=== PATIENT | female | born 1940 | race Caucasian/White ===

== ENCOUNTER 2017-03-16 14:53 | Inpatient (IN) | payer OTHER, MEDICARE ==
--- NOTE | 2017-03-16 16:11 | DR.GENAD ---
HPI - PCP Primary Care Physician: josephine - HPI Comment HPI Comment: BP LOW IN ED. PATIENT DIZZY AND WEAL. NO HEADACHE OR HEAD TRAUMA. NO FEVER. - Complaint/Symptoms Chief Complaint Doctors Comments: WEAKNESS, ALMOST PASS OUT, BP LOW AT HOME. Chief Complaint:: patients stated her blood pressure was low at home and she stated she cant breath good and a sore throat. - Nurses notes reviewed Nurses Notes Review: Yes - Source History Provided: Patient - Mode of Arrival Mode of Arrival: Ambulatory - Timing Onset of Chief Complaint: 03/13/17 Came on: Suddenly - Duration Duration: Constant Duration: Days - Severity Severity: Moderate PMH - PMH Past Medical History: Yes Past Surgical History: Yes - Family History History of Family Medical Conditions: No - Social History Does patient currently use any type of tobacco product: No Have you used tobacco products in the last 12 months: No Type of Tobacco Use: None Does any household member use tobacco: No Alcohol Use: None Do you use any recreational Drugs:: No Lives With: Family Lives Where: Home - infectious screening In the last 2 months have you had wt loss of >10#?: NO Have you had fever, night sweats or hemotysis?: No Have you traveled outside the country in the last 6 months?: No Isolation: Standard ROS - Review of Systems Constitutional: Weakness, Fatigue. negative: Chills, Diaphoresis, Fever, Loss of Appetite Eyes: No Symptoms Reported. negative: Eye Pain, Discharge ENTM: No Symptoms Reported. negative: Ear Pain, Nose Discharge, Nose Congestion , Throat Pain Respiratoy: Non-Productive Cough, Short of Breath. negative: Productive Cough, Wheezing, Hemoptysis Cardiovascular: Chest Pain, Syncope (NEAR SYNCOPE) Genitourinary: No Symptoms Reported. negative: Dysuria, Hematuria Neurological: Weakness, Dizziness. negative: Headache Musculoskeletal: Muscle Pain Integumentary: Dryness Hematologic/Lymphatic: Easy Bruising Endocrine: No Symptoms Reported All Other Systems: Reviewed and Negative PE - Vital Signs Vitals: Temperature 98.7 F Pulse Rate [Left Brachial] 93 Pulse Rate [Right Brachial] 79 Pulse Rate 110 Respiratory Rate 22 Blood Pressure [Left Arm] 134/65 Blood Pressure [Right Arm] 110/57 Blood Pressure 162/69 O2 Sat by Pulse Oximetry 98 - General Limitations: No Limitations General Appearance: Alert - Head Head Exam: Normal Inspection - Eyes Eye exam: Normal Appearance - ENT ENT Exam: Normal External Ear Exam External Ear Exam: Normal External Inspection TM/Canal Exam: Bilateral Normal Nose Exam: Normal Nose Exam Mouth Exam: Normal Inspection Throat Exam: Normal Inspection - Neck Neck Exam: Normal Inspection - Chest Chest Inspection: Symmetric Chest Wall Rise - Respiratory Respiratory Exam: Normal Lung Sounds Bilat Respiratory Exam: Bilateral Clear to Auscultation - Cardiovascular Cardiovascular Exam: Regular Rate, Normal Rhythm, Normal Heart Sounds - Abdominal Exam Abdominal Exam: Normal Bowel Sounds, Soft. negative: Tenderness - Extremities Extremities Exam: Normal Inspection - Back Back Exam: Normal Inspection - Neurologic Neurological Exam: Alert - Psychiatric Psychiatric Exam: Normal Affect, Normal Mood - Skin Skin Exam: Normal Color MDM - Additional Information Additional Information Obtained From: Old Records (HYPOTENSION, DEHYDRATION, UTI , PNEUMONIA, SOB, WEAKNESS) Course - Treatment Treatment: SEE ORDERS. - Consultation Consultation Comments: DISCUSS PATIENT WITH DR. PEDROZA. HE WILL ADMIT PATIENT. - Education/Counseling Education/Counseling: Patient, Education Educated On: Diagnosis ROR - Labs Reviewed Laboratory Results Reviewed?: Yes Result Diagrams: 03/17/17 05:15 03/17/17 05:15 Laboratory: WBC 11.3 X10^3/uL (3.6-10.0) H 03/16/17 16:25 RBC 3.19 X10^6/uL (3.5-5.4) L 03/16/17 16:25 Hgb 9.1 g/dL (12.0-16.0) L 03/16/17 16:25 Hct 27.5 % (36.0-47.0) L 03/16/17 16:25 MCV 86.4 fL (80.0-100.0) 03/16/17 16:25 MCH 28.7 pg (27.0-34.0) 03/16/17 16:25 MCHC 33.2 g/dL (33.0-35.0) 03/16/17 16:25 RDW 15.0 % (11.6-16.5) 03/16/17 16:25 Plt Count 165 X10^3/uL (150.0-450.0) 03/16/17 16:25 MPV 8.1 fL (7.4-11.0) 03/16/17 16:25 Neut % 84.2 % (42.0-75.0) H 03/16/17 16:25 Lymph % 8.1 % (21.0-51.0) L 03/16/17 16:25 [place] % 7.3 % (0.0-13.0) 03/16/17 16:25 Eos % 0.0 % (0.9-2.9) L 03/16/17 16:25 Baso % 0.4 % (0.2-1.0) 03/16/17 16:25 Neut # 9.5 x10^3/uL (2.2-4.8) H 03/16/17 16:25 Lymph # 0.9 X10^3/uL (1.3-2.9) L 03/16/17 16:25 [place] # 0.8 x10^3/uL (0.3-0.8) 03/16/17 16:25 Eos # 0.0 x10^3/uL (0.0-0.2) 03/16/17 16:25 Baso # 0.0 X10^3/uL (0.0-0.1) 03/16/17 16:25 Absolute Nucleated RBC 0.0 /100WBC 03/16/17 16:25 D-Dimer 1710 ng/mL (0-400) H* 03/16/17 16:12 Sodium 137 mmol/L (136-145) 03/16/17 16:25 Corrected Sodium 139 mmol/L (136-145) 03/16/17 16:25 Potassium 3.3 mmol/L (3.5-5.1) L 03/16/17 16:25 Chloride 103 mmol/L (98-107) 03/16/17 16:25 Carbon Dioxide 22.2 mmol/L (21-32) 03/16/17 16:25 BUN 51 mg/dL (7-18) H 03/16/17 16:25 Creatinine 2.96 mg/dL (0.55-1.02) H 03/16/17 16:25 Est GFR (MDRD) Af Amer 20 (>60) L 03/16/17 16:25 Est GFR (MDRD) Non-Af 16 (>60) L 03/16/17 16:25 Glucose 179 mg/dL (65-99) H 03/16/17 16:25 Calcium 8.1 mg/dL (8.5-10.1) L 03/16/17 16:25 Corrected Calcium 8.7 mg/dL (8.5-10.1) 03/16/17 16:25 Total Bilirubin 0.40 mg/dL (0.2-1.0) 03/16/17 16:25 AST 41 Units/L (15-37) H 03/16/17 16:25 ALT 55 Units/L (12-78) 03/16/17 16:25 Alkaline Phosphatase 50 Units/L (46-116) 03/16/17 16:25 Creatine Kinase 124 Units/L (26-192) 03/16/17 16:25 CK-MB (CK-2) < 1.0 ng/mL (0-4.0) 03/16/17 16:25 CK/CKMB % Calc 0.8 % (<4) 03/16/17 16:25 Troponin I < 0.02 ng/mL (0-1.5) 03/16/17 16:25 B-Natriuretic Peptide 184 pg/mL (0-79) H 03/16/17 16:25 Total Protein 6.7 g/dL (6.4-8.2) 03/16/17 16:25 Albumin 3.2 g/dL (3.4-5.0) L 03/16/17 16:25 Globulin 3.5 g/dL (2.5-4.5) 03/16/17 16:25 Albumin/Globulin Ratio 0.9 Ratio (1.1-2.1) L 03/16/17 16:25 Specimen Type Clean catch urine 03/16/17 17:34 Urine Color Yellow (YELLOW) 03/16/17 17:34 Urine Appearance Hazy (CLEAR) 03/16/17 17:34 Urine pH 5.0 (5.0 - 8.0) 03/16/17 17:34 Ur Specific [place] 1.025 (1.000-1.030) 03/16/17 17:34 Urine Protein 3+ (NEGATIVE) 03/16/17 17:34 Urine Glucose (UA) Negative (NEGATIVE) 03/16/17 17:34 Urine Ketones 1+ (NEGATIVE) 03/16/17 17:34 Urine Occult Blood 2+ (NEGATIVE) 03/16/17 17:34 Urine Nitrite Negative (NEGATIVE) 03/16/17 17:34 Urine Bilirubin 1+ (NEGATIVE) 03/16/17 17:34 Urine Urobilinogen 1+ (NORMAL) 03/16/17 17:34 Ur Leukocyte Esterase 3+ (NEGATIVE) 03/16/17 17:34 Urinalysis Comment QNS 03/16/17 17:34 Stool Description Ifob collection tube 03/16/17 17:40 Stl Occult Blood (IFOB) Negative (NEGATIVE) 03/16/17 17:40 - XRAY XRAY Interpreted by: Radiologist XRAY Findings: REPORT DISCUSS WITH PATIENT. - EKG Rhythm: NSR (EKG NOTED) - Diagnosis Discharge Problem: Generalized weakness, Dehydration, SOB (shortness of breath) Hypotension Qualifiers: Hypotension type: unspecified hypotension type Qualified Code(s): I95.9 - Hypotension, unspecified UTI (urinary tract infection) Qualifiers: Urinary tract infection type: acute cystitis Hematuria presence: without hematuria Qualified Code(s): N30.00 - Acute cystitis without hematuria - Discharge Plan Disposition: ADMITTED INPATIENT Condition: Stable - Follow ups/Referrals - Instructions
[2017-03-16 16:34] LABS: BASOPHILS % (AUTO) 0.4 % (0.2-1.0); HEMATOCRIT 27.5 % (36.0-47.0); HEMOGLOBIN 9.1 g/dL (12.0-16.0); LYMPHOCYTES # (AUTO) 0.9 X10^3/uL (1.3-2.9); LYMPHOCYTES % (AUTO) 8.1 % (21.0-51.0); MEAN CORPUSCULAR HEMOGLOBIN 28.7 pg (27.0-34.0); MEAN CORPUSCULAR HGB CONC 33.2 g/dL (33.0-35.0); MEAN CORPUSCULAR VOLUME 86.4 fL (80.0-100.0); MEAN PLATELET VOLUME 8.1 fL (7.4-11.0); MONOCYTES # (AUTO) 0.8 x10^3/uL (0.3-0.8); MONOCYTES % (AUTO) 7.3 % (0.0-13.0); NEUTROPHILS # (AUTO) 9.5 x10^3/uL (2.2-4.8); NEUTROPHILS % (AUTO) 84.2 % (42.0-75.0); PLATELET COUNT 165 X10^3/uL (150.0-450.0); RED BLOOD COUNT 3.19 X10^6/uL (3.5-5.4); WHITE BLOOD COUNT 11.3 X10^3/uL (3.6-10.0)
--- NOTE | 2017-03-16 16:44 | RAD ---
HISTORY: Headache Study: Chest one view Comparison: August 24, 2015 Findings: The trachea is midline. The cardiac silhouette is upper limits normal in size. No congestive heart failure is noted.. The lungs are clear without focal infiltrate or effusion. The bony thorax is un remarkable. IMPRESSION: 1. No acute cardiopulmonary disease. Reported By:
--- NOTE | 2017-03-16 16:44 | CT ---
HISTORY: Headache Study: CT brain without contrast Comparison: September 04, 2016 Technique: Multiple axial images of the brain were obtained from the skull base to the vertex without administr ation of IV contrast. Findings: No acute intraparenchymal hemorrhage or mass can be identified. No extra-axial fluid collections ar e seen. No alteration in the attenuation of the brain parenchyma can be identified to suggest acute or subacute ischemic change. The ventricular system is symmetric and nondilated. The extracranial structures are grossly unremarkable. IMPRESSION: 1. No acute intracranial process can be identified. Reported By:
[2017-03-16 17:15] LABS: B-TYPE NATRIURETIC PEPTIDE 184 pg/mL (0-79)
[2017-03-16 17:16] LABS: ALANINE AMINOTRANSFERASE 55 Units/L (12-78); ALBUMIN 3.2 g/dL (3.4-5.0); ALKALINE PHOSPHATASE 50 Units/L (46-116); ASPARTATE AMINO TRANSFERASE 41 Units/L (15-37); CARBON DIOXIDE 22.2 mmol/L (21-32); CHLORIDE 103 mmol/L (98-107); COR CA(FOR HYPOALB) 8.7 mg/dL (8.5-10.1); COR NA(FOR HYPERGLY) 139 mmol/L (136-145); CREATINE KINASE 124 Units/L (26-192); CREATINE KINASE MB < 1.0 ng/mL (0-4.0); SODIUM 137 mmol/L (136-145); TOTAL PROTEIN 6.7 g/dL (6.4-8.2); TROPONIN I < 0.02 ng/mL (0-1.5)
[2017-03-16 17:19] LABS: BLOOD UREA NITROGEN 51 mg/dL (7-18); CREATININE 2.96 mg/dL (0.55-1.02); GLUCOSE 179 mg/dL (65-99)
[2017-03-16 17:20] LABS: CALCIUM 8.1 mg/dL (8.5-10.1)
[2017-03-16 17:22] LABS: CKMB % 0.8 % (<4); eGFR BLACK RACES 20 (>60); eGFR NON BLACK RACES 16 (>60)
[2017-03-16 17:44] LABS: BILIRUBIN,URINE 1+ (NEGATIVE); BLOOD/HEMOGLOBIN,URINE 2+ (NEGATIVE); GLUCOSE, URINE NEGATIVE (NEGATIVE); KETONES,URINE 1+ (NEGATIVE); LEUKOCYTE ESTERASE ,URINE 3+ (NEGATIVE); NITRITES,URINE NEGATIVE (NEGATIVE); PROTEIN,URINE 3+ (NEGATIVE); UROBILINOGEN,URINE 1+ (NORMAL)
[2017-03-16 17:47] LABS: APPEARANCE,URINE HAZY (CLEAR); COLOR,URINE YELLOW (YELLOW)
[2017-03-16] MEDS ORDERED: NS 1000 ML 1,000 ML ONE (18:23)
[2017-03-16] MEDS ORDERED: NS 1000 ML 1,000 ML IV ONE (18:31)
[2017-03-16] MEDS ORDERED: MORPHINE SULFATE INJ 4 MG IVP ONE (18:34)
[2017-03-16] MEDS ORDERED: DUONEB 0.5 MG/3 MG NEB ONE (20:05)
[2017-03-16] MEDS ORDERED: DUONEB 0.5 MG/3 MG ONE (20:05)
[2017-03-16] MEDS ORDERED: LOVENOX INJ 100 MG SYR SC ONE (21:46)
[2017-03-16] MEDS ORDERED: TYLENOL 500 MG TAB EXTRA STRENGTH PO ONE (21:54)
[2017-03-16] MEDS ORDERED: TYLENOL 500 MG TAB EXTRA STRENGTH ONE (21:55)
[2017-03-16] MEDS ORDERED: LOVENOX INJ 100 MG SYR SC SCH ×2 (22:00)
[2017-03-16] MEDS: ROCEPHIN VIAL 1 GM 1 GM in NS 50 ML IV + SPIKE MINIBAG* 50 ML IV SCH (22:49)
[2017-03-16] MEDS: NEURONTIN CAP 300 MG PO SCH (22:49)
[2017-03-16] MEDS ORDERED: NS + KCL 20 MEQ/L 1,000 ML IV SCH (23:00)
[2017-03-16 23:04] LABS: BILIRUBIN,URINE NEGATIVE (NEGATIVE); BLOOD/HEMOGLOBIN,URINE 3+ (NEGATIVE); GLUCOSE, URINE NEGATIVE (NEGATIVE); KETONES,URINE NEGATIVE (NEGATIVE); LEUKOCYTE ESTERASE ,URINE 2+ (NEGATIVE); NITRITES,URINE NEGATIVE (NEGATIVE); PROTEIN,URINE 2+ (NEGATIVE); UROBILINOGEN,URINE NORMAL (NORMAL)
[2017-03-16 23:18] LABS: APPEARANCE,URINE CLOUDY (CLEAR); BACTERIA,URINE 2+ /HPF (NEGATIVE); COLOR,URINE YELLOW (YELLOW); HYALINE CASTS, URINE FEW /LPF (NEGATIVE); SQUAMOUS EPITHELIAL CELL,UR RARE /HPF (NEGATIVE)
[2017-03-16 23:21] LABS: CKMB % 0.7 % (<4); CREATINE KINASE MB 1.1 ng/mL (0-4.0); TROPONIN I 0.03 ng/mL (0-1.5)
[2017-03-17 00:07] LABS: ABG BASE EXCESS -3.5 mmol/L (-2.0-2.0); ABG HCO3 20.3 mmol/L (22-26)
[2017-03-17 00:08] LABS: ABG ALLEN TEST POS
[2017-03-17] MEDS: DUONEB 0.5 MG/3 MG NEB SCH ×2 (00:32→06:07)
[2017-03-17] MEDS: NEURONTIN CAP 300 MG PO SCH ×3 (05:47→21:09)
[2017-03-17 05:50] LABS: BASOPHILS # (AUTO) 0.1 X10^3/uL (0.0-0.1); BASOPHILS % (AUTO) 0.5 % (0.2-1.0); EOSINOPHILS % (AUTO) 0.1 % (0.9-2.9); HEMATOCRIT 26.4 % (36.0-47.0); HEMOGLOBIN 8.9 g/dL (12.0-16.0); LYMPHOCYTES # (AUTO) 0.8 X10^3/uL (1.3-2.9); LYMPHOCYTES % (AUTO) 8.2 % (21.0-51.0); MEAN CORPUSCULAR HEMOGLOBIN 29.3 pg (27.0-34.0); MEAN CORPUSCULAR HGB CONC 33.9 g/dL (33.0-35.0); MEAN CORPUSCULAR VOLUME 86.5 fL (80.0-100.0); MEAN PLATELET VOLUME 8.7 fL (7.4-11.0); MONOCYTES # (AUTO) 0.7 x10^3/uL (0.3-0.8); MONOCYTES % (AUTO) 6.8 % (0.0-13.0); NEUTROPHILS # (AUTO) 8.3 x10^3/uL (2.2-4.8); NEUTROPHILS % (AUTO) 84.4 % (42.0-75.0); PLATELET COUNT 140 X10^3/uL (150.0-450.0); RED BLOOD COUNT 3.05 X10^6/uL (3.5-5.4); WHITE BLOOD COUNT 9.8 X10^3/uL (3.6-10.0)
[2017-03-17 05:57] LABS: ALBUMIN 2.6 g/dL (3.4-5.0); CALCIUM 7.6 mg/dL (8.5-10.1); CARBON DIOXIDE 21.3 mmol/L (21-32); CKMB % 1.3 % (<4); COR CA(FOR HYPOALB) 8.7 mg/dL (8.5-10.1); CREATINE KINASE MB 3.4 ng/mL (0-4.0); CREATININE 3.19 mg/dL (0.55-1.02); TROPONIN I 0.05 ng/mL (0-1.5)
[2017-03-17] MEDS ORDERED: ZOLOFT PO SCH (09:00)
[2017-03-17] MEDS ORDERED: MULTIPLE VITAMINS PO SCH (09:00)
[2017-03-17] MEDS ORDERED: VALIUM PO SCH (09:00)
[2017-03-17] MEDS ORDERED: PATIENT'S HOME MEDICATION (Fenofibrate [Fenofibrate] 1 TAB) PO SCH (09:00)
[2017-03-17] MEDS ORDERED: [UNRECOGNIZED DRUG - REMARK] PO SCH (09:00)
[2017-03-17] MEDS ORDERED: REQUIP PO SCH (09:00)
[2017-03-17] MEDS ORDERED: MINERALS PO SCH (09:00)
[2017-03-17] MEDS ORDERED: TAB-A-VITE PO SCH (09:00)
[2017-03-17] MEDS ORDERED: ZANTAC PO SCH (09:00)
[2017-03-17] MEDS ORDERED: PATIENT'S HOME MEDICATION (Ranitidine Hcl [Zantac] 300 MG) PO SCH (09:00)
[2017-03-17] MEDS ORDERED: ZOCOR TAB 20 MG PO SCH (09:00)
[2017-03-17] MEDS ORDERED: FLONASE NASAL SPRAY ENOSTRIL SCH (09:00)
[2017-03-17] MEDS ORDERED: PriLOSEC PO SCH (09:00)
[2017-03-17] MEDS ORDERED: ZyrTEC TAB 10 MG PO SCH (09:00)
[2017-03-17] MEDS: ROCEPHIN VIAL 1 GM 1 GM in NS 50 ML IV + SPIKE MINIBAG* 50 ML IV SCH (09:13)
[2017-03-17] MEDS ORDERED: ULTRAM PO PRN (10:55)
[2017-03-17] MEDS ORDERED: LEVAQUIN PREMIX IV 500 MG 500 MG/100 ML BAG IV SCH (11:00)
[2017-03-17] MEDS ORDERED: MELOXICAM 7.5 MG PO SCH (11:00)
[2017-03-17] MEDS ORDERED: FLOMAX PO SCH (11:00)
[2017-03-17] MEDS ORDERED: TYLENOL SUPP 650 MG PR PRN ×2 (11:38→16:44)
[2017-03-17] MEDS ORDERED: NS + KCL 20 MEQ/L 1,000 ML IV SCH (12:00)
[2017-03-17] MEDS ORDERED: XOPENEX 1.25 MG/3 ML NEBULE NEB SCH (12:00)
[2017-03-17] MEDS ORDERED: FORTAZ or TAZICEF INJ 1 GM in NS 50 ML IV + SPIKE MINIBAG* 50 ML IV SCH (14:00)
[2017-03-17] MEDS ORDERED: VANCOMYCIN 1 GM PREMIX (ADDVANTAGE) 250 ML IV SCH ×2 (15:00→21:00)
--- NOTE | 2017-03-17 15:56 | CT ---
CT OF THE ABDOMEN AND PELVIS WITHOUT CONTRAST HISTORY: Diffuse abdominal pain. Fever. Comparison: 08/15/2015 Technique: Multiple axial images of the abdomen and pelvis were obtained from the lung bases to the pubic symph ysis without the administration of IV contrast. Dose reduction techniques including Automated Expos ure Control (AEC) and adjustment of mA and kV were utlized. Findings: The heart is normal in size. There is no pericardial effusion. Lung bases are clear without focal co nsolidation, pleural effusion or pneumothorax. The sensitivity for focal lesion detection within the solid abdominal viscera is diminished without the use of IV contrast. Liver and spleen are normal in size, and contour. Hepatic steatosis without focal lesion. No ductal dilitation. Gallbladder absent. The pancreas is unremarkable. Adrenal glands are normal. Bilateral p erinephric stranding which is new from prior. No bowel obstruction or inflammation. No abnormal appearing mesenteric or retroperitoneal lymph nod es. No free fluid or fluid collections. The bladder is normal in appearance. Uterus and ovaries absent. No free fluid or abnormal pelvic lym ph nodes. No aggressive osseous lesions. IMPRESSION: 1. Bilateral perinephric stranding which is new from prior. Correlate with renal function. 2. Hepatic steatosis. Reported By:
--- NOTE | 2017-03-17 16:17 | NM ---
HISTORY: Shortness of breath with suspicion for pulmonary embolism. Nuclear medicine V/Q examination. Technique: After the administration of 6.08 mCi of technetium 99m MAA followed by inhalation of 28.7 mCi of technetium 99m DTPA, anterior, posterior, and lateral perfusion and ventilation images were submitted. The multiple V/Q projections were reviewed in concert. Comparison: Chest radiographic examination of same day. Findings: No appreciable ventilation or perfusion defect seen. No mismatched segmental or wedge-shap ed perfusion defects are seen to suggest pulmonary emboli. Based on the PIOPED 2 criteria, this stud y would correspond to a low probability exam for PE. However, it should be noted that a low probabil ity V/Q study does not imply a lack of any associated pulmonary emboli, based on the PIOPED study. I t simply implies a less than 20% likelihood of pulmonary embolism. No additional ventilation or perf usion imaging abnormalities are seen. IMPRESSION: Low probability V/Q study for pulmonary embolism. Reported By:
[2017-03-17] MEDS ORDERED: DUONEB 0.5 MG/3 MG NEB ONE (16:44)
[2017-03-17] MEDS: XOPENEX 1.25 MG/3 ML NEBULE NEB SCH (17:16)
[2017-03-17] MEDS ORDERED: VANCOMYCIN 1 GM PREMIX (ADDVANTAGE) 250 ML IV ONE (17:33)
[2017-03-17] MEDS ORDERED: TYLENOL 325 MG TAB PO ONE ×2 (17:33→17:34)
[2017-03-17] MEDS: TYLENOL 325 MG TAB PO PRN (17:37)
[2017-03-17] MEDS: ULTRAM PO PRN (18:34)
[2017-03-17 20:52] LABS: BILIRUBIN,URINE NEGATIVE (NEGATIVE); BLOOD/HEMOGLOBIN,URINE 4+ (NEGATIVE); GLUCOSE, URINE NEGATIVE (NEGATIVE); KETONES,URINE NEGATIVE (NEGATIVE); LEUKOCYTE ESTERASE ,URINE 1+ (NEGATIVE); NITRITES,URINE NEGATIVE (NEGATIVE); PROTEIN,URINE 2+ (NEGATIVE); UROBILINOGEN,URINE NORMAL (NORMAL)
[2017-03-17 21:04] LABS: AMORPHOUS SEDIMENT,UR 3+ /HPF (NEGATIVE); APPEARANCE,URINE SLIGHTLY HAZY (CLEAR); BACTERIA,URINE 1+ /HPF (NEGATIVE); COLOR,URINE YELLOW (YELLOW); SQUAMOUS EPITHELIAL CELL,UR RARE /HPF (NEGATIVE)
[2017-03-17] MEDS: NS + KCL 20 MEQ/L 1,000 ML IV SCH ×2 (21:09→23:54)
[2017-03-17] MEDS: LOVENOX INJ 100 MG SYR SC SCH (21:10)
[2017-03-17] MEDS: FLONASE NASAL SPRAY ENOSTRIL SCH (21:11)
[2017-03-18] MEDS: XOPENEX 1.25 MG/3 ML NEBULE NEB SCH ×2 (01:17→05:15)
[2017-03-18] MEDS: TUSSIONEX PENNKINETIC SUSP PO PRN ×2 (01:29→15:28)
[2017-03-18] MEDS: ROBITUSSIN DM PO PRN ×3 (01:29→17:29)
[2017-03-18] MEDS ORDERED: VANCOMYCIN 1 GM PREMIX (ADDVANTAGE) 250 ML IV SCH (03:00)
[2017-03-18] MEDS: NS + KCL 20 MEQ/L 1,000 ML IV SCH ×5 (05:22→21:00)
[2017-03-18] MEDS: NEURONTIN CAP 300 MG PO SCH ×3 (05:24→21:00)
[2017-03-18] MEDS: TYLENOL 325 MG TAB PO PRN ×2 (05:32→17:28)
[2017-03-18 05:54] LABS: ALBUMIN 2.5 g/dL (3.4-5.0); CALCIUM 7.8 mg/dL (8.5-10.1); CARBON DIOXIDE 21.5 mmol/L (21-32); CREATININE 2.06 mg/dL (0.55-1.02); TOTAL PROTEIN 6.7 g/dL (6.4-8.2)
[2017-03-18 06:23] LABS: C-REACTIVE PROTEIN 330.2 mg/L (0-3.0)
--- NOTE | 2017-03-18 06:23 | RAD ---
HISTORY: Hypotension, dehydration, weakness Study: Chest one view Comparison: March 16, 2017 Findings: The heart is upper limits normal in size to mildly enlarged. No definite congestive heart failure is noted. The aorta is calcified. Slight increased density is present in the right upper lobe as dion red to the left representing a change from the prior examination. A developing infiltrate is possibl e correlation with upright PA and lateral chest in the department is recommended for further evaluat ion. The remainder of the lung lyon are clear. No pleural effusions are identified. The bony thora x is unremarkable. IMPRESSION: Slight increasing density in the right upper lobe as compared to the left and representing a change from the prior examination. A developing infiltrate is possible. Correlation with upright PA and lat eral chest performed in the department is recommended for further evaluation. Reported By:
[2017-03-18 06:24] LABS: BASOPHILS # (AUTO) 0.1 X10^3/uL (0.0-0.1); BASOPHILS % (AUTO) 0.9 % (0.2-1.0); EOSINOPHILS # (AUTO) 0.1 x10^3/uL (0.0-0.2); HEMATOCRIT 29.1 % (36.0-47.0); HEMOGLOBIN 9.9 g/dL (12.0-16.0); LYMPHOCYTES # (AUTO) 0.5 X10^3/uL (1.3-2.9); LYMPHOCYTES % (AUTO) 7.8 % (21.0-51.0); MEAN CORPUSCULAR HEMOGLOBIN 29.4 pg (27.0-34.0); MEAN CORPUSCULAR HGB CONC 34.1 g/dL (33.0-35.0); MEAN CORPUSCULAR VOLUME 86.2 fL (80.0-100.0); MEAN PLATELET VOLUME 9.1 fL (7.4-11.0); MONOCYTES # (AUTO) 0.5 x10^3/uL (0.3-0.8); MONOCYTES % (AUTO) 7.6 % (0.0-13.0); NEUTROPHILS # (AUTO) 5.5 x10^3/uL (2.2-4.8); NEUTROPHILS % (AUTO) 82.7 % (42.0-75.0); PLATELET COUNT 167 X10^3/uL (150.0-450.0); RED BLOOD COUNT 3.38 X10^6/uL (3.5-5.4); RED CELL DISTRIBUTION WIDTH 15.2 % (11.6-16.5); WHITE BLOOD COUNT 6.7 X10^3/uL (3.6-10.0)
[2017-03-18 07:07] LABS: ERYTHROCYTE SEDIMENTATION RATE 94 MM/HOUR (0-20)
[2017-03-18] MEDS: LEVAQUIN PREMIX IV 500 MG 500 MG/100 ML BAG IV SCH (08:18)
[2017-03-18] MEDS: MOBIC TAB 15 MG PO SCH (08:19)
[2017-03-18] MEDS: ZOLOFT PO SCH (08:20)
[2017-03-18] MEDS: TAB-A-VITE PO SCH (08:20)
[2017-03-18] MEDS: ZyrTEC TAB 10 MG PO SCH (08:21)
[2017-03-18] MEDS: ZOCOR TAB 20 MG PO SCH (08:21)
[2017-03-18] MEDS: FLOMAX PO SCH (08:22)
[2017-03-18] MEDS: VALIUM PO SCH (08:22)
[2017-03-18] MEDS: ZANTAC PO SCH (08:22)
[2017-03-18] MEDS: FLONASE NASAL SPRAY ENOSTRIL SCH ×2 (08:23→21:00)
[2017-03-18] MEDS: PriLOSEC PO SCH (08:41)
[2017-03-18] MEDS: REQUIP PO SCH (08:41)
[2017-03-18] MEDS ORDERED: MOBIC TAB 15 MG PO SCH (09:00)
--- NOTE | 2017-03-18 12:46 | DR.H&P ---
H&P - History & Physical for Day of: H&P Date: 03/17/17 - Chief Complaint Chief Complaint: Weakness, almost passed out, hypotension - Allergies Allergies/Adverse Reactions: Allergies Allergy/AdvReac Type Severity Reaction Status Date / Time No Known Drug Allergy Allergy Verified 03/16/17 14:54 - History of Present Illness History of Present Illness: Patient is a 76 yo white femal who presented to the emergency room with complaints of weakness states she almost passed out and her blood pressure was low and sore throat and shortness of breath. Upon arrival patinets BP was 108/59. Patients D-Dimer was 1710 WBC 11.3, Potassium 3.3, BUN 51, Creatinine 2.96, AST 41.UA - 2+ Bacteria, WBC 15-20. This am Pateint complains of abdominal pain ans is tender to touch she denies n/v/d. Patient admittedwith diagnosis of Hypotension, Generalized Weakness, UTI and Dehydration. Patient was started on NS with 20meq KCL @ 75ml/hr and we are doing to increase this to 150ml/hr, She was also started on rocephin and this is being changed to fortaz and Levaquing 500mg IV Daily. Also we will order an abdominal CT without contrast for related abdominal pain. Labs are normal with the exception of RBC 3.05, Hgb 8.9, Hct 26.4, Plt Count 140, Neut% 84.4, Lymph% 8.2, Eos% 0.1, Neut# 8.3, Lymph # 0.8, Ptt 72.4, BUN 55, Creatinine 3.19, Est GFR 15, Glucose 153, Calcium 7.6, Creatinine Kinase 268, Protein 6.0, Albumin 2.6 - Past Medical History Past Medical History: Anxiety, Arthritis, Depression, Dyslipidemia, GERD, Hypertension, Renal Disease, Sleep Apnea Additional Medical History: anemia - Past Surgical History Surgical History: Appendectomy, Cholecystectomy, Hysterectomy, Other - Family History Family Medical History: Cancer, Hypertension - Social History Does patient currently use any type of tobacco product: No Have you used tobacco products in the last 12 months: No Type of Tobacco Use: None Does any household member use tobacco: No Alcohol Use: None Drug Use: None - Medications Home Medications: Cetirizine HCl [All Day Allergy] 10 mg PO DAILY 03/16/17 [History Confirmed 01/27] Meloxicam [Mobic] 7.5 mg PO DAILY 03/16/17 [History Confirmed 03/16/17] Ropinirole HCl [REQUIP 0.25 MG *] 0.5 mg PO DAILY 03/16/17 [History Confirmed ] Ketoconazole [NIZORAL 200MG TAB] 1 tab PO BID 03/17/17 [History Confirmed ] Pantoprazole Sodium 40 mg [PROTONIX 40 MG *] 1 tab PO DAILY 03/17/17 [History Confirmed 03/17/17] - Review of Systems Constitutional: Weakness Eyes: No Symptoms Reported ENT: Throat Pain Respiratory: Shortness of Breath Cardiovascular: No Symptoms Reported Gastrointestinal: Abdominal Pain Genitourinary: No Symptoms Reported Musculoskeletal: No Symptoms Reported Skin: No Symptoms Reported Neurological: No Symptoms Reported - Physical Exam Vital Signs: Temperature 98.7 F Pulse Rate [Left Brachial] 87 Pulse Rate [Right Brachial] 95 Pulse Rate 95 Respiratory Rate 18 Blood Pressure [Left Arm] 142/90 Blood Pressure [Right Arm] 153/47 O2 Sat by Pulse Oximetry 98 Oriented: Normal Eyes: Normal Ear: Normal Nose: Normal Throat: Normal Respiratory: Wheezes Throughout (expiratory) Cardiovascular: Normal : Normal Auscultation: Bowel Sounds: Normal Palpation: Normal Tenderness: Diffuse Skin: Decreased Turgur Musculoskeletal: Normal Psychiatric: Normal Mood Description: Calm, Appropriate Affect: Normal Speech Pattern: Clear, Appropriate - Assessment/Plan (1) Dehydration Status: Acute Plan: Increase IVF to 150ml/hr repeat labs in am (2) Generalized weakness Status: Acute Plan: physical thearpy consult (3) Hypotension Qualifiers: Hypotension type: unspecified hypotension type Trimester: T Qualified Code(s): I95.9 - Hypotension, unspecified Status: Acute Plan: Hold blood pressure medications from home, IVF continue to monitor (4) SOB (shortness of breath) Status: Acute Plan: supplemental oxygen and nebulizer treatments (5) UTI (urinary tract infection) Qualifiers: Urinary tract infection type: acute cystitis Hematuria presence: without hematuria Indwelling urinary catheter type: I Encounter type: E Qualified Code(s): N30.00 - Acute cystitis without hematuria Status: Acute Plan: fortaz and levaquin IV
--- NOTE | 2017-03-18 13:08 | PCM.PROG ---
Progress Note - Progress Note for Day of Date: 03/18/17 - Subjective Subjective: Patient is a 76 yo white femal who presented to the emergency room with complaints of weakness states she almost passed out and her blood pressure was low and sore throat and shortness of breath. Patient admitted with diagnosis of Hypotension, Generalized Weakness, UTI and Dehydration. Yesterday patient started having seizure like activity that lasted about 30 seconds, temp 103.6, Blood cultures ordered transferred to ICU ordered lactic acid. Patient was started on Vancomycin 1gm, Lactic acid was normal. This am patient has temperature of 103.3 we are going to continue to leave patient in the ICU for futher monitoring. PAtient states she feels much better this am but is still very weak, she states that the breathing treatments have been giving her hallucinations so we will discontinue the jet nebs and start aggressive incentive spirometry. Abdominal CT showed bilateral perinephric stranding which is new form prior ct correlate with renal function, hepatic Steatosis. Chest Xray Shows Slight increasing density in the right upper lobe as compared to the left and representing a change from the prior examination, a developing infiltrate is possible. Blood pressure continue to remain stable and will continue to hold blood pressure medications at this time and repeat labs and CXR in the am. - Past Medical Family Social History Past Med/Fam/Surg Hx: No changes since H&P Allergies: Allergies No Known Drug Allergy Allergy (Verified 03/16/17 14:54) - Review of Systems ROS: No change since H&P - Vital Signs and I&O's Vital Signs: Temperature 98.7 F Pulse Rate [Left Brachial] 87 Pulse Rate [Right Brachial] 95 Pulse Rate 95 Respiratory Rate 18 Blood Pressure [Left Arm] 142/90 Blood Pressure [Right Arm] 153/47 O2 Sat by Pulse Oximetry 98 Intake and Output: Intake & Output 03/16/17 03/17/17 03/18/17 03/19/17 11:59 11:59 11:59 11:59 Intake Total 4062 Output Total 1950 Balance 2111 - Physical Exam Oriented: Normal Eyes: Normal Ear: Normal Nose: Normal Throat: Normal Cardiovascular: Normal : Normal Auscultation: Bowel Sounds: Normal Tenderness: Diffuse Skin: Decreased Turgur Musculoskeletal: Normal Psychiatric: Normal Mood Description: Calm, Appropriate Affect: Normal Speech Pattern: Clear, Appropriate - Laboratory and Diagnostics Result Diagrams: 03/18/17 05:00 03/18/17 05:00 Labs: 03/17/17 20:41 Urine,Catheterized Urine Culture - Preliminary 03/17/17 15:30 Throat Throat Culture - Preliminary Laboratory WBC 6.7 X10^3/uL (3.6-10.0) 03/18/17 05:00 RBC 3.38 X10^6/uL (3.5-5.4) L 03/18/17 05:00 Hgb 9.9 g/dL (12.0-16.0) L 03/18/17 05:00 Hct 29.1 % (36.0-47.0) L 03/18/17 05:00 MCV 86.2 fL (80.0-100.0) 03/18/17 05:00 MCH 29.4 pg (27.0-34.0) 03/18/17 05:00 MCHC 34.1 g/dL (33.0-35.0) 03/18/17 05:00 RDW 15.2 % (11.6-16.5) 03/18/17 05:00 Plt Count 167 X10^3/uL (150.0-450.0) 03/18/17 05:00 MPV 9.1 fL (7.4-11.0) 03/18/17 05:00 Neut % 82.7 % (42.0-75.0) H 03/18/17 05:00 Lymph % 7.8 % (21.0-51.0) L 03/18/17 05:00 [place] % 7.6 % (0.0-13.0) 03/18/17 05:00 Eos % 1.0 % (0.9-2.9) 03/18/17 05:00 Baso % 0.9 % (0.2-1.0) 03/18/17 05:00 Neut # 5.5 x10^3/uL (2.2-4.8) H 03/18/17 05:00 Lymph # 0.5 X10^3/uL (1.3-2.9) L 03/18/17 05:00 [place] # 0.5 x10^3/uL (0.3-0.8) 03/18/17 05:00 Eos # 0.1 x10^3/uL (0.0-0.2) 03/18/17 05:00 Baso # 0.1 X10^3/uL (0.0-0.1) 03/18/17 05:00 Absolute Nucleated RBC 0.1 /100WBC 03/18/17 05:00 ESR 94 MM/HOUR (0-20) H 03/18/17 05:00 INR Target Range - 03/17/17 05:15 INR 1.20 (0.8-1.3) 03/17/17 05:15 PTT 72.4 SECONDS (22.9-36.5) H 03/17/17 05:15 PTT Comment - 03/17/17 05:15 D-Dimer 1710 ng/mL (0-400) H* 03/16/17 16:12 Sample Site R rad 03/16/17 19:35 ABG pH 7.410 (7.35-7.45) 03/16/17 19:35 ABG pCO2 32.0 mmHg (35.0-45.0) L 03/16/17 19:35 ABG pO2 63.0 mmHg (80.0-100.0) L 03/16/17 19:35 ABG HCO3 20.3 mmol/L (22-26) L 03/16/17 19:35 ABG O2 Saturation 92.0 % (90-100) 03/16/17 19:35 ABG Base Excess -3.5 mmol/L (-2.0-2.0) L 03/16/17 19:35 Bradley Test Pos 03/16/17 19:35 A-a Gradient 47.0 mmHg 03/16/17 19:35 FiO2 21.000 03/16/17 19:35 Blood Gas Comments Roxie well, [facility] 03/16/17 19:35 Sodium 141 mmol/L (136-145) 03/18/17 05:00 Corrected Sodium 142 mmol/L (136-145) 03/18/17 05:00 Potassium 4.4 mmol/L (3.5-5.1) 03/18/17 05:00 Chloride 109 mmol/L (98-107) H 03/18/17 05:00 Carbon Dioxide 21.5 mmol/L (21-32) 03/18/17 05:00 BUN 39 mg/dL (7-18) H 03/18/17 05:00 Creatinine 2.06 mg/dL (0.55-1.02) H 03/18/17 05:00 Est GFR (MDRD) Af Amer 30 (>60) L 03/18/17 05:00 Est GFR (MDRD) Non-Af 25 (>60) L 03/18/17 05:00 Glucose 125 mg/dL (65-99) H 03/18/17 05:00 Lactic Acid 0.4 mmol/L (0.4-2.0) 03/17/17 15:40 Calcium 7.8 mg/dL (8.5-10.1) L 03/18/17 05:00 Corrected Calcium 9.0 mg/dL (8.5-10.1) 03/18/17 05:00 Total Bilirubin 0.40 mg/dL (0.2-1.0) 03/18/17 05:00 AST 65 Units/L (15-37) H 03/18/17 05:00 ALT 74 Units/L (12-78) 03/18/17 05:00 Alkaline Phosphatase 72 Units/L (46-116) 03/18/17 05:00 Creatine Kinase 268 Units/L (26-192) H 03/17/17 05:15 CK-MB (CK-2) 3.4 ng/mL (0-4.0) 03/17/17 05:15 CK/CKMB % Calc 1.3 % (<4) 03/17/17 05:15 Troponin I 0.05 ng/mL (0-1.5) 03/17/17 05:15 C-Reactive Protein 330.20 mg/L (0-3.0) H 03/18/17 05:00 B-Natriuretic Peptide 184 pg/mL (0-79) H 03/16/17 16:25 Total Protein 6.7 g/dL (6.4-8.2) 03/18/17 05:00 Albumin 2.5 g/dL (3.4-5.0) L 03/18/17 05:00 Globulin 4.2 g/dL (2.5-4.5) 03/18/17 05:00 Albumin/Globulin Ratio 0.6 Ratio (1.1-2.1) L 03/18/17 05:00 Specimen Type Catherized urine 03/17/17 20:41 Urine Color Yellow (YELLOW) 03/17/17 20:41 Urine Appearance Slightly hazy (CLEAR) 03/17/17 20:41 Urine pH 5.0 (5.0 - 8.0) 03/17/17 20:41 Ur Specific [place] 1.015 (1.000-1.030) 03/17/17 20:41 Urine Protein 2+ (NEGATIVE) 03/17/17 20:41 Urine Glucose (UA) Negative (NEGATIVE) 03/17/17 20:41 Urine Ketones Negative (NEGATIVE) 03/17/17 20:41 Urine Occult Blood 4+ (NEGATIVE) 03/17/17 20:41 Urine Nitrite Negative (NEGATIVE) 03/17/17 20:41 Urine Bilirubin Negative (NEGATIVE) 03/17/17 20:41 Urine Urobilinogen Normal (NORMAL) 03/17/17 20:41 Ur Leukocyte Esterase 1+ (NEGATIVE) 03/17/17 20:41 Urine RBC 5-8 /HPF (NEGATIVE) 03/17/17 20:41 Urine WBC 4-6 /HPF (NEGATIVE) 03/17/17 20:41 Ur Squamous Epith Cells Rare /HPF (NEGATIVE) 03/17/17 20:41 Amorphous Sediment 3+ /HPF (NEGATIVE) 03/17/17 20:41 Urine Bacteria 1+ /HPF (NEGATIVE) 03/17/17 20:41 Hyaline Casts Few /LPF (NEGATIVE) 03/16/17 22:52 Ur Culture Indicated? Yes/culture set up 03/17/17 20:41 Urinalysis Comment QNS 03/16/17 17:34 Stool Description Ifob collection tube 03/16/17 17:40 Stl Occult Blood (IFOB) Negative (NEGATIVE) 03/16/17 17:40 Influenza A (H1N1) PCR Not detected (NOT DETECT) 03/17/17 15:37 Influenza Type A (PCR) Negative (NEGATIVE) 03/17/17 15:37 Influenza Type B (PCR) Negative (NEGATIVE) 03/17/17 15:37 Streptococcus Screen Negative (NEGATIVE) 03/17/17 15:30 - Plan (1) Dehydration Status: Acute Plan: Continue IVF repeat labs in am (2) Generalized weakness Status: Acute Plan: physical therapy as tolerated (3) Hypotension Status: Acute Qualifiers: Hypotension type: unspecified hypotension type Trimester: T Qualified Code(s): I95.9 - Hypotension, unspecified Plan: Hold blood pressure medications from home, IVF continue to monitor (4) SOB (shortness of breath) Status: Acute Plan: supplemental oxygen and agressive incentive spirometer (5) UTI (urinary tract infection) Status: Acute Qualifiers: Urinary tract infection type: acute cystitis Hematuria presence: without hematuria Indwelling urinary catheter type: I Encounter type: E Qualified Code(s): N30.00 - Acute cystitis without hematuria Plan: fortaz and levaquin IV (6) Fever Status: Acute Qualifiers: Fever type: F Encounter type: E Plan: start vancomycin
[2017-03-18] MEDS: FORTAZ or TAZICEF INJ 1 GM in NS 50 ML IV + SPIKE MINIBAG* 50 ML IV SCH (15:19)
[2017-03-18] MEDS ORDERED: STERILE WATER IRRIGATION IR ONE (20:53)
[2017-03-18] MEDS: LOVENOX INJ 100 MG SYR SC SCH (20:59)
[2017-03-18] MEDS: MIRALAX POWDER (1 DOSE 17GM) PO SCH (20:59)
[2017-03-18] MEDS: COLACE CAP 100 MG PO PRN (21:00)
[2017-03-19] MEDS: NS + KCL 20 MEQ/L 1,000 ML IV SCH ×5 (05:25→23:14)
[2017-03-19] MEDS: NEURONTIN CAP 300 MG PO SCH ×3 (05:39→21:11)
--- NOTE | 2017-03-19 05:43 | RAD ---
Chest, one view Indication: Shortness of breath. Comparison: 03/18/2017 Findings: There are streaky right upper and left perihilar opacities. Stable heart size. There is mi ld elevation of the right hemidiaphragm. No large effusion or pneumothorax identified. Impression: Streaky right upper lobe and left perihilar opacities are concerning for infiltrate. Con tinued radiographic followup recommended. Reported By:
[2017-03-19 05:45] LABS: ALBUMIN 2.3 g/dL (3.4-5.0); BASOPHILS % (AUTO) 0.7 % (0.2-1.0); CALCIUM 8.4 mg/dL (8.5-10.1); CARBON DIOXIDE 21.9 mmol/L (21-32); COR CA(FOR HYPOALB) 9.8 mg/dL (8.5-10.1); CREATININE 1.46 mg/dL (0.55-1.02); EOSINOPHILS # (AUTO) 0.1 x10^3/uL (0.0-0.2); EOSINOPHILS % (AUTO) 1.4 % (0.9-2.9); HEMOGLOBIN 9.6 g/dL (12.0-16.0); LYMPHOCYTES # (AUTO) 0.8 X10^3/uL (1.3-2.9); LYMPHOCYTES % (AUTO) 11.5 % (21.0-51.0); MEAN CORPUSCULAR HEMOGLOBIN 29.7 pg (27.0-34.0); MEAN CORPUSCULAR HGB CONC 34.3 g/dL (33.0-35.0); MEAN CORPUSCULAR VOLUME 86.4 fL (80.0-100.0); MEAN PLATELET VOLUME 8.7 fL (7.4-11.0); MONOCYTES # (AUTO) 0.6 x10^3/uL (0.3-0.8); MONOCYTES % (AUTO) 8.7 % (0.0-13.0); NEUTROPHILS # (AUTO) 5.2 x10^3/uL (2.2-4.8); NEUTROPHILS % (AUTO) 77.7 % (42.0-75.0); PLATELET COUNT 178 X10^3/uL (150.0-450.0); RED BLOOD COUNT 3.24 X10^6/uL (3.5-5.4); RED CELL DISTRIBUTION WIDTH 15.3 % (11.6-16.5); TOTAL PROTEIN 6.6 g/dL (6.4-8.2); WHITE BLOOD COUNT 6.7 X10^3/uL (3.6-10.0)
[2017-03-19 06:41] LABS: ERYTHROCYTE SEDIMENTATION RATE 107 MM/HOUR (0-20)
[2017-03-19] MEDS: LEVAQUIN PREMIX IV 500 MG 500 MG/100 ML BAG IV SCH (08:10)
[2017-03-19] MEDS: MOBIC TAB 15 MG PO SCH (08:12)
[2017-03-19] MEDS: FLOMAX PO SCH (08:12)
[2017-03-19] MEDS: FLONASE NASAL SPRAY ENOSTRIL SCH ×2 (08:12→21:10)
[2017-03-19] MEDS: TAB-A-VITE PO SCH (08:13)
[2017-03-19] MEDS: ZOLOFT PO SCH (08:13)
[2017-03-19] MEDS: ZyrTEC TAB 10 MG PO SCH (08:14)
[2017-03-19] MEDS: VALIUM PO SCH (08:14)
[2017-03-19] MEDS: PriLOSEC PO SCH (08:14)
[2017-03-19] MEDS: REQUIP PO SCH (08:14)
[2017-03-19] MEDS: ZOCOR TAB 20 MG PO SCH (08:15)
[2017-03-19] MEDS: ZANTAC PO SCH (08:15)
[2017-03-19] MEDS: MUCINEX EXPECTORANT PO SCH ×2 (10:22→21:11)
[2017-03-19] MEDS: FORTAZ or TAZICEF INJ 1 GM in NS 50 ML IV + SPIKE MINIBAG* 50 ML IV SCH (13:05)
[2017-03-19] MEDS: MUCOMYST 20% 200 MG/ML NEB SCH ×3 (13:58→21:21)
--- NOTE | 2017-03-19 16:44 | PCM.PROG ---
Progress Note - Progress Note for Day of Date: 03/19/17 - Subjective Subjective: Patient is a 76 yo white femal who presented to the emergency room with complaints of weakness states she almost passed out and her blood pressure was low and sore throat and shortness of breath. Patient admitted with diagnosis of Hypotension, Generalized Weakness, UTI and Dehydration. Patient states she is feeling better however she is having some chest congestion and feels like she can not cough it up. do tto her having a reaction to the breathing treatment we are going to try her on mucomyst breathing treatment and start mucinex 1200mg PO BID. Patient has still been running a low grade fever. Chest Xray shows streaky right upper lobe and left perihilar opacities are concerning for infiltrate. Labs within normal limits with exception of RBC 3.24 , Hgb 9.6, Hct 28.0, Neut% 77.7, Lymph% 11.5, Neut# 5.2, Lymph # 0.8, Chloride 110, BUN 24, Creatinine 1.46, Est GFR 37, Glucose 140, Calcium 8.4, AST 73, ALT 100, Albumin 2.3, Albumin/Globulin Ratio 0.5, CRP 280, ESR 107 - Past Medical Family Social History Past Med/Fam/Surg Hx: No changes since H&P Allergies: Allergies No Known Drug Allergy Allergy (Verified 03/16/17 14:54) - Review of Systems ROS: No change since H&P - Vital Signs and I&O's Vital Signs: Temperature 98.5 F Pulse Rate [Left Brachial] 85 Pulse Rate [Right Brachial] 95 Pulse Rate 95 Respiratory Rate 27 Blood Pressure [Left Arm] 142/90 Blood Pressure [Right Arm] 167/62 O2 Sat by Pulse Oximetry 100 Intake and Output: Intake & Output 03/17/17 03/18/17 03/19/17 03/20/17 11:59 11:59 11:59 11:59 Intake Total 4062 2705 1670 Output Total 1950 2300 600 Balance 2112 405 1070 - Physical Exam Oriented: Normal Eyes: Normal Ear: Normal Nose: Normal Throat: Normal Respiratory: Wheezes Cardiovascular: Normal : Normal Auscultation: Bowel Sounds: Normal Palpation: Normal Tenderness: Diffuse Skin: Decreased Turgur Musculoskeletal: Normal Psychiatric: Normal Mood Description: Calm, Appropriate Affect: Normal Speech Pattern: Clear, Appropriate - Laboratory and Diagnostics Result Diagrams: 03/19/17 05:10 03/19/17 05:10 Labs: 03/17/17 15:30 Throat Throat Culture - Final 03/17/17 20:41 Urine,Catheterized Urine Culture - Final 03/17/17 12:07 Blood Blood Culture - Preliminary 03/17/17 12:00 Blood Blood Culture - Preliminary Laboratory WBC 6.7 X10^3/uL (3.6-10.0) 03/19/17 05:10 RBC 3.24 X10^6/uL (3.5-5.4) L 03/19/17 05:10 Hgb 9.6 g/dL (12.0-16.0) L 03/19/17 05:10 Hct 28.0 % (36.0-47.0) L 03/19/17 05:10 MCV 86.4 fL (80.0-100.0) 03/19/17 05:10 MCH 29.7 pg (27.0-34.0) 03/19/17 05:10 MCHC 34.3 g/dL (33.0-35.0) 03/19/17 05:10 RDW 15.3 % (11.6-16.5) 03/19/17 05:10 Plt Count 178 X10^3/uL (150.0-450.0) 03/19/17 05:10 MPV 8.7 fL (7.4-11.0) 03/19/17 05:10 Neut % 77.7 % (42.0-75.0) H 03/19/17 05:10 Lymph % 11.5 % (21.0-51.0) L 03/19/17 05:10 [place] % 8.7 % (0.0-13.0) 03/19/17 05:10 Eos % 1.4 % (0.9-2.9) 03/19/17 05:10 Baso % 0.7 % (0.2-1.0) 03/19/17 05:10 Neut # 5.2 x10^3/uL (2.2-4.8) H 03/19/17 05:10 Lymph # 0.8 X10^3/uL (1.3-2.9) L 03/19/17 05:10 [place] # 0.6 x10^3/uL (0.3-0.8) 03/19/17 05:10 Eos # 0.1 x10^3/uL (0.0-0.2) 03/19/17 05:10 Baso # 0.0 X10^3/uL (0.0-0.1) 03/19/17 05:10 Absolute Nucleated RBC 0.0 /100WBC 03/19/17 05:10 ESR 107 MM/HOUR (0-20) H 03/19/17 05:10 INR Target Range - 03/17/17 05:15 INR 1.20 (0.8-1.3) 03/17/17 05:15 PTT 72.4 SECONDS (22.9-36.5) H 03/17/17 05:15 PTT Comment - 03/17/17 05:15 D-Dimer 1710 ng/mL (0-400) H* 03/16/17 16:12 Sample Site R rad 03/16/17 19:35 ABG pH 7.410 (7.35-7.45) 03/16/17 19:35 ABG pCO2 32.0 mmHg (35.0-45.0) L 03/16/17 19:35 ABG pO2 63.0 mmHg (80.0-100.0) L 03/16/17 19:35 ABG HCO3 20.3 mmol/L (22-26) L 03/16/17 19:35 ABG O2 Saturation 92.0 % (90-100) 03/16/17 19:35 ABG Base Excess -3.5 mmol/L (-2.0-2.0) L 03/16/17 19:35 Bradley Test Pos 03/16/17 19:35 A-a Gradient 47.0 mmHg 03/16/17 19:35 FiO2 21.000 03/16/17 19:35 Blood Gas Comments Roxie well, afh 03/16/17 19:35 Sodium 142 mmol/L (136-145) 03/19/17 05:10 Corrected Sodium 143 mmol/L (136-145) 03/19/17 05:10 Potassium 4.3 mmol/L (3.5-5.1) 03/19/17 05:10 Chloride 110 mmol/L (98-107) H 03/19/17 05:10 Carbon Dioxide 21.9 mmol/L (21-32) 03/19/17 05:10 BUN 24 mg/dL (7-18) H 03/19/17 05:10 Creatinine 1.46 mg/dL (0.55-1.02) H 03/19/17 05:10 Est GFR (MDRD) Af Amer 45 (>60) L 03/19/17 05:10 Est GFR (MDRD) Non-Af 37 (>60) L 03/19/17 05:10 Glucose 140 mg/dL (65-99) H 03/19/17 05:10 Lactic Acid 0.4 mmol/L (0.4-2.0) 03/17/17 15:40 Calcium 8.4 mg/dL (8.5-10.1) L 03/19/17 05:10 Corrected Calcium 9.8 mg/dL (8.5-10.1) 03/19/17 05:10 Total Bilirubin 0.50 mg/dL (0.2-1.0) 03/19/17 05:10 AST 73 Units/L (15-37) H 03/19/17 05:10 ALT 100 Units/L (12-78) H 03/19/17 05:10 Alkaline Phosphatase 89 Units/L (46-116) 03/19/17 05:10 Creatine Kinase 268 Units/L (26-192) H 03/17/17 05:15 CK-MB (CK-2) 3.4 ng/mL (0-4.0) 03/17/17 05:15 CK/CKMB % Calc 1.3 % (<4) 03/17/17 05:15 Troponin I 0.05 ng/mL (0-1.5) 03/17/17 05:15 C-Reactive Protein 280.00 mg/L (0-3.0) H 03/19/17 05:10 B-Natriuretic Peptide 184 pg/mL (0-79) H 03/16/17 16:25 Total Protein 6.6 g/dL (6.4-8.2) 03/19/17 05:10 Albumin 2.3 g/dL (3.4-5.0) L 03/19/17 05:10 Globulin 4.3 g/dL (2.5-4.5) 03/19/17 05:10 Albumin/Globulin Ratio 0.5 Ratio (1.1-2.1) L 03/19/17 05:10 Specimen Type Catherized urine 03/17/17 20:41 Urine Color Yellow (YELLOW) 03/17/17 20:41 Urine Appearance Slightly hazy (CLEAR) 03/17/17 20:41 Urine pH 5.0 (5.0 - 8.0) 03/17/17 20:41 Ur Specific [place] 1.015 (1.000-1.030) 03/17/17 20:41 Urine Protein 2+ (NEGATIVE) 03/17/17 20:41 Urine Glucose (UA) Negative (NEGATIVE) 03/17/17 20:41 Urine Ketones Negative (NEGATIVE) 03/17/17 20:41 Urine Occult Blood 4+ (NEGATIVE) 03/17/17 20:41 Urine Nitrite Negative (NEGATIVE) 03/17/17 20:41 Urine Bilirubin Negative (NEGATIVE) 03/17/17 20:41 Urine Urobilinogen Normal (NORMAL) 03/17/17 20:41 Ur Leukocyte Esterase 1+ (NEGATIVE) 03/17/17 20:41 Urine RBC 5-8 /HPF (NEGATIVE) 03/17/17 20:41 Urine WBC 4-6 /HPF (NEGATIVE) 03/17/17 20:41 Ur Squamous Epith Cells Rare /HPF (NEGATIVE) 03/17/17 20:41 Amorphous Sediment 3+ /HPF (NEGATIVE) 03/17/17 20:41 Urine Bacteria 1+ /HPF (NEGATIVE) 03/17/17 20:41 Hyaline Casts Few /LPF (NEGATIVE) 03/16/17 22:52 Ur Culture Indicated? Yes/culture set up 03/17/17 20:41 Urinalysis Comment QNS 03/16/17 17:34 Stool Description Ifob collection tube 03/16/17 17:40 Stl Occult Blood (IFOB) Negative (NEGATIVE) 03/16/17 17:40 Influenza A (H1N1) PCR Not detected (NOT DETECT) 03/17/17 15:37 Influenza Type A (PCR) Negative (NEGATIVE) 03/17/17 15:37 Influenza Type B (PCR) Negative (NEGATIVE) 03/17/17 15:37 Streptococcus Screen Negative (NEGATIVE) 03/17/17 15:30 - Plan (1) Dehydration Status: Acute Plan: Continue IVF repeat labs in am (2) Generalized weakness Status: Acute Plan: physical therapy as tolerated (3) Hypotension Status: Acute Qualifiers: Hypotension type: unspecified hypotension type Trimester: T Qualified Code(s): I95.9 - Hypotension, unspecified Plan: Hold blood pressure medications from home, IVF continue to monitor (4) SOB (shortness of breath) Status: Acute Plan: supplemental oxygen and agressive incentive spirometer (5) UTI (urinary tract infection) Status: Acute Qualifiers: Urinary tract infection type: acute cystitis Hematuria presence: without hematuria Indwelling urinary catheter type: I Encounter type: E Qualified Code(s): N30.00 - Acute cystitis without hematuria Plan: fortaz and levaquin IV (6) Fever Status: Acute Qualifiers: Fever type: F Encounter type: E Plan: fortaz and levaquin (7) Positive blood culture Status: Acute Plan: fortaz and levaquin (8) Chest congestion Status: Acute Plan: mucinex and mucomyst nebulizer
[2017-03-19] MEDS: LOVENOX INJ 100 MG SYR SC SCH (21:11)
[2017-03-19] MEDS: MIRALAX POWDER (1 DOSE 17GM) PO SCH (21:11)
[2017-03-19] MEDS ORDERED: SALINE 0.9% 3 ML NEB TX ONE (21:23)
[2017-03-20 05:13] LABS: BASOPHILS % (AUTO) 0.5 % (0.2-1.0); EOSINOPHILS # (AUTO) 0.1 x10^3/uL (0.0-0.2); EOSINOPHILS % (AUTO) 1.9 % (0.9-2.9); HEMATOCRIT 25.3 % (36.0-47.0); HEMOGLOBIN 8.8 g/dL (12.0-16.0); LYMPHOCYTES # (AUTO) 0.9 X10^3/uL (1.3-2.9); LYMPHOCYTES % (AUTO) 10.9 % (21.0-51.0); MEAN CORPUSCULAR HEMOGLOBIN 29.7 pg (27.0-34.0); MEAN CORPUSCULAR HGB CONC 34.7 g/dL (33.0-35.0); MEAN CORPUSCULAR VOLUME 85.6 fL (80.0-100.0); MEAN PLATELET VOLUME 8.8 fL (7.4-11.0); MONOCYTES # (AUTO) 0.9 x10^3/uL (0.3-0.8); MONOCYTES % (AUTO) 11.8 % (0.0-13.0); NEUTROPHILS # (AUTO) 5.8 x10^3/uL (2.2-4.8); NEUTROPHILS % (AUTO) 74.9 % (42.0-75.0); PLATELET COUNT 189 X10^3/uL (150.0-450.0); RED BLOOD COUNT 2.96 X10^6/uL (3.5-5.4); RED CELL DISTRIBUTION WIDTH 15.4 % (11.6-16.5); WHITE BLOOD COUNT 7.8 X10^3/uL (3.6-10.0)
[2017-03-20 05:20] LABS: C-REACTIVE PROTEIN 181.3 mg/L (0-3.0); CALCIUM 8.2 mg/dL (8.5-10.1); COR CA(FOR HYPOALB) 9.8 mg/dL (8.5-10.1); CREATININE 1.13 mg/dL (0.55-1.02); TOTAL PROTEIN 6.1 g/dL (6.4-8.2)
[2017-03-20] MEDS: NS + KCL 20 MEQ/L 1,000 ML IV SCH ×4 (05:45→23:57)
[2017-03-20] MEDS: NEURONTIN CAP 300 MG PO SCH ×3 (05:45→23:58)
--- NOTE | 2017-03-20 06:33 | RAD ---
HISTORY: Shortness of breath Study: Chest one view Comparison: March 19, 2017 Findings: The trachea is midline. The cardiac silhouette is enlarged. No congestive heart failure is noted. T he aorta is calcified.. The lungs are clear without focal infiltrate or effusion. Right-sided perih ilar subsegmental atelectasis is identified. The bony thorax is unremarkable. IMPRESSION: 1. Cardiomegaly without congestive heart failure 2. No infiltrates Reported By:
[2017-03-20 06:52] LABS: ERYTHROCYTE SEDIMENTATION RATE 111 MM/HOUR (0-20)
[2017-03-20] MEDS: FLONASE NASAL SPRAY ENOSTRIL SCH ×2 (08:33→21:30)
[2017-03-20] MEDS: PriLOSEC PO SCH (08:34)
[2017-03-20] MEDS: TAB-A-VITE PO SCH (08:34)
[2017-03-20] MEDS: MUCINEX EXPECTORANT PO SCH ×2 (08:34→23:57)
[2017-03-20] MEDS: FLOMAX PO SCH (08:35)
[2017-03-20] MEDS: REQUIP PO SCH (08:35)
[2017-03-20] MEDS: ZOCOR TAB 20 MG PO SCH (08:35)
[2017-03-20] MEDS: MOBIC TAB 15 MG PO SCH (08:35)
[2017-03-20] MEDS: VALIUM PO SCH (08:36)
[2017-03-20] MEDS: ZANTAC PO SCH (08:36)
[2017-03-20] MEDS: COLACE CAP 100 MG PO PRN (08:36)
[2017-03-20] MEDS: LEVAQUIN PREMIX IV 500 MG 500 MG/100 ML BAG IV SCH (08:36)
[2017-03-20] MEDS: ZOLOFT PO SCH (08:36)
[2017-03-20] MEDS: ZyrTEC TAB 10 MG PO SCH (08:37)
[2017-03-20] MEDS: MUCOMYST 20% 200 MG/ML NEB SCH ×4 (09:00→20:50)
[2017-03-20] MEDS: COZAAR PO SCH (09:51)
[2017-03-20] MEDS: FORTAZ or TAZICEF INJ 1 GM in NS 50 ML IV + SPIKE MINIBAG* 50 ML IV SCH ×2 (10:49→23:59)
--- NOTE | 2017-03-20 12:47 | PCM.PROG ---
Progress Note - Subjective Subjective: Patient is a 76 yo white female who presented to the emergency room with complaints of weakness states she almost passed out and her blood pressure was low and sore throat and shortness of breath. Patient admitted with diagnosis of Hypotension, Generalized Weakness, UTI and Dehydration. Patient states she is feeling better. Her blood cultures grew out Ecoli X2. Her chest xray this am shows cardiomegaly without CHF and no infiltrates noted. Patient is still running a low grade temperature and her blood pressure has came up a good bit so we are going to start her on losartan 50mg PO Daily, and continue to hold her home medications as we do not want her to have the diuretics. Vital Signs this am 99.9, 81, 28, 100% on Nasal Cannula and BP 167/67. Labs are within normal limits with the exception of RBC 2.96, Hgb 8.8, HCT 25.3, Lymph% 10.9, Neut# 5.8, Lymph# 0.9, Josephine# 0.9, ESR 111, Chloride 112, Creatinine 1.13, Est GFR 49, Glucose 113, Clacium 8.2, AST 71, ALT 103, CRP 181.30, Total Protein 3.1, Albumin 2.0, Albumin/Globulin Ratio 0.5. We are going to back off of her fluids to 80ml/hr due to increased chloride. Since her renal function has improved we are going to increase her fortaz to 1gm every 2hrs. We will repeat labs and chest xray in the am and continue on Antibiotics. - Past Medical Family Social History Past Med/Fam/Surg Hx: No changes since H&P Allergies: Allergies No Known Drug Allergy Allergy (Verified 03/16/17 14:54) - Review of Systems ROS: No change since H&P - Vital Signs and I&O's Vital Signs: 99.9, 81, 28, 100% on Nasal Cannula and BP 167/67 Intake and Output: Intake & Output 03/18/17 03/19/17 03/20/17 03/21/17 11:59 11:59 11:59 11:59 Intake Total 4062 2705 4219 Output Total 1950 2300 2280 Balance 2112 405 1939 - Physical Exam Oriented: Normal Eyes: Normal Ear: Normal Nose: Normal Throat: Normal Respiratory: Wheezes Cardiovascular: Normal : Normal Auscultation: Bowel Sounds: Normal Tenderness: Diffuse Skin: Decreased Turgur Musculoskeletal: Normal Psychiatric: Normal Mood Description: Calm, Appropriate Affect: Normal Speech Pattern: Clear, Appropriate - Laboratory and Diagnostics Result Diagrams: 03/20/17 04:30 03/20/17 04:30 Labs: 03/17/17 15:30 Throat Throat Culture - Final 03/17/17 20:41 Urine,Catheterized Urine Culture - Final 03/17/17 12:07 Blood Blood Culture - Preliminary 03/17/17 12:00 Blood Blood Culture - Preliminary Laboratory WBC 7.8 X10^3/uL (3.6-10.0) 03/20/17 04:30 RBC 2.96 X10^6/uL (3.5-5.4) L 03/20/17 04:30 Hgb 8.8 g/dL (12.0-16.0) L 03/20/17 04:30 Hct 25.3 % (36.0-47.0) L 03/20/17 04:30 MCV 85.6 fL (80.0-100.0) 03/20/17 04:30 MCH 29.7 pg (27.0-34.0) 03/20/17 04:30 MCHC 34.7 g/dL (33.0-35.0) 03/20/17 04:30 RDW 15.4 % (11.6-16.5) 03/20/17 04:30 Plt Count 189 X10^3/uL (150.0-450.0) 03/20/17 04:30 MPV 8.8 fL (7.4-11.0) 03/20/17 04:30 Neut % 74.9 % (42.0-75.0) 03/20/17 04:30 Lymph % 10.9 % (21.0-51.0) L 03/20/17 04:30 Josephine % 11.8 % (0.0-13.0) 03/20/17 04:30 Eos % 1.9 % (0.9-2.9) 03/20/17 04:30 Baso % 0.5 % (0.2-1.0) 03/20/17 04:30 Neut # 5.8 x10^3/uL (2.2-4.8) H 03/20/17 04:30 Lymph # 0.9 X10^3/uL (1.3-2.9) L 03/20/17 04:30 [place] # 0.9 x10^3/uL (0.3-0.8) H 03/20/17 04:30 Eos # 0.1 x10^3/uL (0.0-0.2) 03/20/17 04:30 Baso # 0.0 X10^3/uL (0.0-0.1) 03/20/17 04:30 Absolute Nucleated RBC 0.0 /100WBC 03/20/17 04:30 ESR 111 MM/HOUR (0-20) H 03/20/17 04:30 INR Target Range - 03/17/17 05:15 INR 1.20 (0.8-1.3) 03/17/17 05:15 PTT 72.4 SECONDS (22.9-36.5) H 03/17/17 05:15 PTT Comment - 03/17/17 05:15 D-Dimer 1710 ng/mL (0-400) H* 03/16/17 16:12 Sample Site R rad 03/16/17 19:35 ABG pH 7.410 (7.35-7.45) 03/16/17 19:35 ABG pCO2 32.0 mmHg (35.0-45.0) L 03/16/17 19:35 ABG pO2 63.0 mmHg (80.0-100.0) L 03/16/17 19:35 ABG HCO3 20.3 mmol/L (22-26) L 03/16/17 19:35 ABG O2 Saturation 92.0 % (90-100) 03/16/17 19:35 ABG Base Excess -3.5 mmol/L (-2.0-2.0) L 03/16/17 19:35 Bradley Test Pos 03/16/17 19:35 A-a Gradient 47.0 mmHg 03/16/17 19:35 FiO2 21.000 03/16/17 19:35 Blood Gas Comments Roxie well, afh 03/16/17 19:35 Sodium 142 mmol/L (136-145) 03/20/17 04:30 Corrected Sodium 142 mmol/L (136-145) 03/20/17 04:30 Potassium 4.5 mmol/L (3.5-5.1) 03/20/17 04:30 Chloride 112 mmol/L (98-107) H 03/20/17 04:30 Carbon Dioxide 21.0 mmol/L (21-32) 03/20/17 04:30 BUN 17 mg/dL (7-18) 03/20/17 04:30 Creatinine 1.13 mg/dL (0.55-1.02) H 03/20/17 04:30 Est GFR (MDRD) Af Amer 60 (>60) 03/20/17 04:30 Est GFR (MDRD) Non-Af 49 (>60) L 03/20/17 04:30 Glucose 113 mg/dL (65-99) H 03/20/17 04:30 Lactic Acid 0.4 mmol/L (0.4-2.0) 03/17/17 15:40 Calcium 8.2 mg/dL (8.5-10.1) L 03/20/17 04:30 Corrected Calcium 9.8 mg/dL (8.5-10.1) 03/20/17 04:30 Total Bilirubin 0.50 mg/dL (0.2-1.0) 03/20/17 04:30 AST 71 Units/L (15-37) H 03/20/17 04:30 ALT 103 Units/L (12-78) H 03/20/17 04:30 Alkaline Phosphatase 84 Units/L (46-116) 03/20/17 04:30 Creatine Kinase 268 Units/L (26-192) H 03/17/17 05:15 CK-MB (CK-2) 3.4 ng/mL (0-4.0) 03/17/17 05:15 CK/CKMB % Calc 1.3 % (<4) 03/17/17 05:15 Troponin I 0.05 ng/mL (0-1.5) 03/17/17 05:15 C-Reactive Protein 181.30 mg/L (0-3.0) H 03/20/17 04:30 B-Natriuretic Peptide 184 pg/mL (0-79) H 03/16/17 16:25 Total Protein 6.1 g/dL (6.4-8.2) L 03/20/17 04:30 Albumin 2.0 g/dL (3.4-5.0) L 03/20/17 04:30 Globulin 4.1 g/dL (2.5-4.5) 03/20/17 04:30 Albumin/Globulin Ratio 0.5 Ratio (1.1-2.1) L 03/20/17 04:30 Specimen Type Catherized urine 03/17/17 20:41 Urine Color Yellow (YELLOW) 03/17/17 20:41 Urine Appearance Slightly hazy (CLEAR) 03/17/17 20:41 Urine pH 5.0 (5.0 - 8.0) 03/17/17 20:41 Ur Specific [place] 1.015 (1.000-1.030) 03/17/17 20:41 Urine Protein 2+ (NEGATIVE) 03/17/17 20:41 Urine Glucose (UA) Negative (NEGATIVE) 03/17/17 20:41 Urine Ketones Negative (NEGATIVE) 03/17/17 20:41 Urine Occult Blood 4+ (NEGATIVE) 03/17/17 20:41 Urine Nitrite Negative (NEGATIVE) 03/17/17 20:41 Urine Bilirubin Negative (NEGATIVE) 03/17/17 20:41 Urine Urobilinogen Normal (NORMAL) 03/17/17 20:41 Ur Leukocyte Esterase 1+ (NEGATIVE) 03/17/17 20:41 Urine RBC 5-8 /HPF (NEGATIVE) 03/17/17 20:41 Urine WBC 4-6 /HPF (NEGATIVE) 03/17/17 20:41 Ur Squamous Epith Cells Rare /HPF (NEGATIVE) 03/17/17 20:41 Amorphous Sediment 3+ /HPF (NEGATIVE) 03/17/17 20:41 Urine Bacteria 1+ /HPF (NEGATIVE) 03/17/17 20:41 Hyaline Casts Few /LPF (NEGATIVE) 03/16/17 22:52 Ur Culture Indicated? Yes/culture set up 03/17/17 20:41 Urinalysis Comment QNS 03/16/17 17:34 Stool Description Ifob collection tube 03/16/17 17:40 Stl Occult Blood (IFOB) Negative (NEGATIVE) 03/16/17 17:40 Influenza A (H1N1) PCR Not detected (NOT DETECT) 03/17/17 15:37 Influenza Type A (PCR) Negative (NEGATIVE) 03/17/17 15:37 Influenza Type B (PCR) Negative (NEGATIVE) 03/17/17 15:37 Streptococcus Screen Negative (NEGATIVE) 03/17/17 15:30 - Plan (1) Dehydration Status: Acute Plan: Continue IVF repeat labs in am (2) Generalized weakness Status: Acute Plan: physical therapy as tolerated (3) Hypotension Status: Resolved Qualifiers: Hypotension type: unspecified hypotension type Trimester: T Qualified Code(s): I95.9 - Hypotension, unspecified Plan: Hold blood pressure medications from home, IVF continue to monitor (4) SOB (shortness of breath) Status: Acute Plan: supplemental oxygen and agressive incentive spirometer (5) UTI (urinary tract infection) Status: Acute Qualifiers: Urinary tract infection type: acute cystitis Hematuria presence: without hematuria Indwelling urinary catheter type: I Encounter type: E Qualified Code(s): N30.00 - Acute cystitis without hematuria Plan: fortaz and levaquin IV (6) Fever Status: Acute Qualifiers: Fever type: F Encounter type: E Plan: fortaz and levaquin (7) Positive blood culture Status: Acute Plan: fortaz and levaquin (8) Chest congestion Status: Acute Plan: mucinex and mucomyst nebulizer (9) Hypertension Status: Acute Qualifiers: Hypertension type: H Plan: Losartan 50mg PO Daily
[2017-03-20 14:14] VITALS: BMI 35.2
[2017-03-20] MEDS: ROBITUSSIN DM PO PRN (23:59)
[2017-03-20] MEDS: LOVENOX INJ 100 MG SYR SC SCH (23:59)
[2017-03-20] MEDS: MIRALAX POWDER (1 DOSE 17GM) PO SCH (23:59)
[2017-03-21 06:19] LABS: BASOPHILS # (AUTO) 0.1 X10^3/uL (0.0-0.1); BASOPHILS % (AUTO) 0.8 % (0.2-1.0); EOSINOPHILS # (AUTO) 0.2 x10^3/uL (0.0-0.2); EOSINOPHILS % (AUTO) 2.1 % (0.9-2.9); HEMATOCRIT 26.4 % (36.0-47.0); HEMOGLOBIN 9.1 g/dL (12.0-16.0); LYMPHOCYTES # (AUTO) 1.1 X10^3/uL (1.3-2.9); LYMPHOCYTES % (AUTO) 11.3 % (21.0-51.0); MEAN CORPUSCULAR HEMOGLOBIN 29.8 pg (27.0-34.0); MEAN CORPUSCULAR HGB CONC 34.4 g/dL (33.0-35.0); MEAN CORPUSCULAR VOLUME 86.5 fL (80.0-100.0); MEAN PLATELET VOLUME 8.8 fL (7.4-11.0); MONOCYTES % (AUTO) 10.5 % (0.0-13.0); NEUTROPHILS # (AUTO) 7.1 x10^3/uL (2.2-4.8); NEUTROPHILS % (AUTO) 75.3 % (42.0-75.0); PLATELET COUNT 217 X10^3/uL (150.0-450.0); RED BLOOD COUNT 3.06 X10^6/uL (3.5-5.4); RED CELL DISTRIBUTION WIDTH 15.5 % (11.6-16.5); WHITE BLOOD COUNT 9.4 X10^3/uL (3.6-10.0)
[2017-03-21 06:32] LABS: ALANINE AMINOTRANSFERASE 97 Units/L (12-78); ALBUMIN 2.1 g/dL (3.4-5.0); ALKALINE PHOSPHATASE 88 Units/L (46-116); ASPARTATE AMINO TRANSFERASE 67 Units/L (15-37); BLOOD UREA NITROGEN 15 mg/dL (7-18); CALCIUM 8.7 mg/dL (8.5-10.1); CARBON DIOXIDE 22.8 mmol/L (21-32); CHLORIDE 110 mmol/L (98-107); COR CA(FOR HYPOALB) 10.2 mg/dL (8.5-10.1); COR NA(FOR HYPERGLY) 142 mmol/L (136-145); CREATININE 0.99 mg/dL (0.55-1.02); GLUCOSE 124 mg/dL (65-99); SODIUM 141 mmol/L (136-145); TOTAL PROTEIN 6.3 g/dL (6.4-8.2); eGFR BLACK RACES > 60 (>60); eGFR NON BLACK RACES 58 (>60)
--- NOTE | 2017-03-21 06:36 | RAD ---
HISTORY: Shortness of breath, hypotension Study: Chest one view Comparison: March 20, 2017, March 19, 2017 Findings: The trachea is midline. The cardiac silhouette is minimally enlarged. No congestive heart failure i s noted. The aorta is calcified.. The lungs are clear without focal infiltrate or effusion. The [place]ie [place] thorax is unremarkable. IMPRESSION: 1. Minimal cardiomegaly without congestive heart failure 2. Lungs clear Reported By:
[2017-03-21] MEDS: NEURONTIN CAP 300 MG PO SCH ×3 (06:45→21:58)
[2017-03-21 06:48] LABS: BAND NEUTROPHILS % 2 % (0-10)
[2017-03-21 06:49] LABS: PLATELET MORPHOLOGY COMMENT NORMAL (NORMAL)
[2017-03-21 06:50] LABS: ERYTHROCYTE SEDIMENTATION RATE 108 MM/HOUR (0-20)
[2017-03-21] MEDS: COLACE CAP 100 MG PO PRN (08:37)
[2017-03-21] MEDS: REQUIP PO SCH (08:37)
[2017-03-21] MEDS: TAB-A-VITE PO SCH (08:38)
[2017-03-21] MEDS: ZOCOR TAB 20 MG PO SCH (08:38)
[2017-03-21] MEDS: MUCINEX EXPECTORANT PO SCH ×2 (08:38→21:58)
[2017-03-21] MEDS: MOBIC TAB 15 MG PO SCH (08:38)
[2017-03-21] MEDS: PriLOSEC PO SCH (08:38)
[2017-03-21] MEDS: ZyrTEC TAB 10 MG PO SCH (08:39)
[2017-03-21] MEDS: ZANTAC PO SCH (08:39)
[2017-03-21] MEDS: VALIUM PO SCH (08:39)
[2017-03-21] MEDS: COZAAR PO SCH (08:39)
[2017-03-21] MEDS: FLOMAX PO SCH (08:39)
[2017-03-21] MEDS: FLONASE NASAL SPRAY ENOSTRIL SCH ×2 (08:40→21:54)
[2017-03-21] MEDS: LEVAQUIN PREMIX IV 500 MG 500 MG/100 ML BAG IV SCH (08:40)
[2017-03-21] MEDS: ZOLOFT PO SCH (08:40)
[2017-03-21] MEDS: ULTRAM PO PRN (08:48)
[2017-03-21] MEDS: ALBUMIN HUMAN 25%- 100ML 100 ML IV SCH (09:01)
[2017-03-21] MEDS: NS + KCL 20 MEQ/L 1,000 ML IV SCH ×2 (11:49→19:06)
[2017-03-21] MEDS: FORTAZ or TAZICEF INJ 1 GM in NS 50 ML IV + SPIKE MINIBAG* 50 ML IV SCH ×2 (12:04→22:13)
[2017-03-21] MEDS: LOVENOX INJ 100 MG SYR SC SCH (22:01)
[2017-03-21] MEDS: MIRALAX POWDER (1 DOSE 17GM) PO SCH (22:01)
[2017-03-22] MEDS: NEURONTIN CAP 300 MG PO SCH ×2 (06:12→15:08)
[2017-03-22 06:17] LABS: ALANINE AMINOTRANSFERASE 77 Units/L (12-78); ALBUMIN 2.2 g/dL (3.4-5.0); ALKALINE PHOSPHATASE 76 Units/L (46-116); ASPARTATE AMINO TRANSFERASE 53 Units/L (15-37); BLOOD UREA NITROGEN 17 mg/dL (7-18); CALCIUM 8.5 mg/dL (8.5-10.1); CARBON DIOXIDE 23.3 mmol/L (21-32); CHLORIDE 112 mmol/L (98-107); COR CA(FOR HYPOALB) 9.9 mg/dL (8.5-10.1); COR NA(FOR HYPERGLY) 144 mmol/L (136-145); CREATININE 0.91 mg/dL (0.55-1.02); GLUCOSE 113 mg/dL (65-99); SODIUM 144 mmol/L (136-145); eGFR BLACK RACES > 60 (>60); eGFR NON BLACK RACES > 60 (>60)
[2017-03-22 06:25] LABS: BASOPHILS # (AUTO) 0.1 X10^3/uL (0.0-0.1); BASOPHILS % (AUTO) 0.6 % (0.2-1.0); EOSINOPHILS # (AUTO) 0.2 x10^3/uL (0.0-0.2); EOSINOPHILS % (AUTO) 2.5 % (0.9-2.9); HEMATOCRIT 25.1 % (36.0-47.0); HEMOGLOBIN 8.7 g/dL (12.0-16.0); LYMPHOCYTES # (AUTO) 1.1 X10^3/uL (1.3-2.9); LYMPHOCYTES % (AUTO) 11.7 % (21.0-51.0); MEAN CORPUSCULAR HEMOGLOBIN 29.8 pg (27.0-34.0); MEAN CORPUSCULAR HGB CONC 34.5 g/dL (33.0-35.0); MEAN CORPUSCULAR VOLUME 86.4 fL (80.0-100.0); MEAN PLATELET VOLUME 8.6 fL (7.4-11.0); MONOCYTES # (AUTO) 0.9 x10^3/uL (0.3-0.8); MONOCYTES % (AUTO) 9.9 % (0.0-13.0); NEUTROPHILS % (AUTO) 75.3 % (42.0-75.0); PLATELET COUNT 229 X10^3/uL (150.0-450.0); RED CELL DISTRIBUTION WIDTH 15.3 % (11.6-16.5); WHITE BLOOD COUNT 9.3 X10^3/uL (3.6-10.0)
[2017-03-22 08:00] LABS: BAND NEUTROPHILS % 3 % (0-10)
[2017-03-22 08:01] LABS: PLATELET MORPHOLOGY COMMENT NORMAL (NORMAL)
[2017-03-22] MEDS ORDERED: STERILE WATER IRRIGATION IR ONE (08:18)
[2017-03-22] MEDS: NS + KCL 20 MEQ/L 1,000 ML IV SCH ×2 (08:30→15:07)
[2017-03-22] MEDS: ALBUMIN HUMAN 25%- 100ML 100 ML IV SCH (09:44)
[2017-03-22] MEDS: ZyrTEC TAB 10 MG PO SCH (09:45)
[2017-03-22] MEDS: LEVAQUIN PREMIX IV 500 MG 500 MG/100 ML BAG IV SCH (09:45)
[2017-03-22] MEDS: TAB-A-VITE PO SCH (09:47)
[2017-03-22] MEDS: REQUIP PO SCH (09:48)
[2017-03-22] MEDS: MUCINEX EXPECTORANT PO SCH (09:48)
[2017-03-22] MEDS: ZOCOR TAB 20 MG PO SCH (09:49)
[2017-03-22] MEDS: COZAAR PO SCH (09:49)
[2017-03-22] MEDS: FLOMAX PO SCH (09:49)
[2017-03-22] MEDS: PriLOSEC PO SCH (09:49)
[2017-03-22] MEDS: ZOLOFT PO SCH (09:50)
[2017-03-22] MEDS: MOBIC TAB 15 MG PO SCH (09:50)
[2017-03-22] MEDS: FLONASE NASAL SPRAY ENOSTRIL SCH (09:51)
[2017-03-22] MEDS: VALIUM PO SCH (09:51)
[2017-03-22] MEDS: ZANTAC PO SCH (09:51)
[2017-03-22] MEDS ORDERED: COZAAR PO STA (11:27)
[2017-03-22] MEDS: FORTAZ or TAZICEF INJ 1 GM in NS 50 ML IV + SPIKE MINIBAG* 50 ML IV SCH (12:30)
[2017-03-22 16:16] VITALS: BP 184/69
--- NOTE | 2017-03-25 14:24 | PCM.PROG ---
Progress Note - Progress Note for Day of Date: 03/21/17 - Subjective Subjective: Patient is a 76 yo white female who presented to the emergency room with complaints of weakness states she almost passed out and her blood pressure was low and sore throat and shortness of breath. Patient admitted with diagnosis of Hypotension, Generalized Weakness, UTI and Dehydration. Patient states she feels much better this am however we are going to keep her one more day to make sure she is continuing to eat and drink well. Vital signs this am are 98.2, 75, 22, 100% on NC, 174/66. Labs are within normal limits with the exception of RBC 3.06, Hgb 9.1, Hct 26.4, neut% 75.3, Lymph% 11.3, Neut# 7.1, Lymph# 1.1, [place]# 1.0, ESR 108, Chlride 110, Est GFR 58, Glucose 124, AST 67, ALT 97, CRP 148.90, Total protein 6.3, Albumin 2.1, Albumin/globulin ratio 0.5. Chest Xray this am shows minimal cardiomegaly without congestive heart failure and lungs are clear. We are going to continue patient on her current treatment plan and follow up with labs in the am. - Past Medical Family Social History Past Med/Fam/Surg Hx: No changes since H&P Allergies: Allergies No Known Drug Allergy Allergy (Verified 03/16/17 14:54) - Review of Systems ROS: No change since H&P - Vital Signs and I&O's Vital Signs: 98.2, 75, 22, 100% on NC, 174/66 Intake and Output: Intake & Output 03/23/17 03/24/17 03/25/17 03/26/17 11:59 11:59 11:59 11:59 Intake Total 1040 Output Total 1050 Balance -10 - Physical Exam Oriented: Normal Eyes: Normal Ear: Normal Nose: Normal Throat: Normal Respiratory: Wheezes Cardiovascular: Normal : Normal Auscultation: Bowel Sounds: Normal Tenderness: Diffuse Skin: Decreased Turgur Musculoskeletal: Normal Psychiatric: Normal Mood Description: Calm, Appropriate Affect: Normal Speech Pattern: Clear, Appropriate - Laboratory and Diagnostics Result Diagrams: 03/22/17 03:15 03/22/17 03:15 Labs: 03/17/17 12:07 Blood Blood Culture - Final 03/17/17 12:00 Blood Blood Culture - Final 03/17/17 15:30 Throat Throat Culture - Final 03/17/17 20:41 Urine,Catheterized Urine Culture - Final Laboratory WBC 9.3 X10^3/uL (3.6-10.0) 03/22/17 03:15 RBC 2.90 X10^6/uL (3.5-5.4) L 03/22/17 03:15 Hgb 8.7 g/dL (12.0-16.0) L 03/22/17 03:15 Hct 25.1 % (36.0-47.0) L 03/22/17 03:15 MCV 86.4 fL (80.0-100.0) 03/22/17 03:15 MCH 29.8 pg (27.0-34.0) 03/22/17 03:15 MCHC 34.5 g/dL (33.0-35.0) 03/22/17 03:15 RDW 15.3 % (11.6-16.5) 03/22/17 03:15 Plt Count 229 X10^3/uL (150.0-450.0) 03/22/17 03:15 Plt Count Comment Adequate (ADEQUATE) 03/22/17 03:15 MPV 8.6 fL (7.4-11.0) 03/22/17 03:15 Neut % 75.3 % (42.0-75.0) H 03/22/17 03:15 Lymph % 11.7 % (21.0-51.0) L 03/22/17 03:15 [place] % 9.9 % (0.0-13.0) 03/22/17 03:15 Eos % 2.5 % (0.9-2.9) 03/22/17 03:15 Baso % 0.6 % (0.2-1.0) 03/22/17 03:15 Neut # 7.0 x10^3/uL (2.2-4.8) H 03/22/17 03:15 Lymph # 1.1 X10^3/uL (1.3-2.9) L 03/22/17 03:15 [place] # 0.9 x10^3/uL (0.3-0.8) H 03/22/17 03:15 Eos # 0.2 x10^3/uL (0.0-0.2) 03/22/17 03:15 Baso # 0.1 X10^3/uL (0.0-0.1) 03/22/17 03:15 Absolute Nucleated RBC 0.0 /100WBC 03/22/17 03:15 Total Counted 100 03/22/17 03:15 Neutrophils % (Manual) 80 % (39-76) H 03/22/17 03:15 Band Neutrophils % 3 % (0-10) 03/22/17 03:15 Lymphocytes % (Manual) 9 % (13-43) L 03/22/17 03:15 Monocytes % (Manual) 8 % (4-9) 03/22/17 03:15 Eosinophils % (Manual) 1 % (0-6) 03/21/17 04:35 Plt Morphology Comment Normal (NORMAL) 03/22/17 03:15 RBC Morphology Normal (NORMAL) 03/22/17 03:15 ESR 108 MM/HOUR (0-20) H 03/21/17 04:35 INR Target Range - 03/17/17 05:15 INR 1.20 (0.8-1.3) 03/17/17 05:15 PTT 72.4 SECONDS (22.9-36.5) H 03/17/17 05:15 PTT Comment - 03/17/17 05:15 D-Dimer 1710 ng/mL (0-400) H* 03/16/17 16:12 Sample Site R rad 03/16/17 19:35 ABG pH 7.410 (7.35-7.45) 03/16/17 19:35 ABG pCO2 32.0 mmHg (35.0-45.0) L 03/16/17 19:35 ABG pO2 63.0 mmHg (80.0-100.0) L 03/16/17 19:35 ABG HCO3 20.3 mmol/L (22-26) L 03/16/17 19:35 ABG O2 Saturation 92.0 % (90-100) 03/16/17 19:35 ABG Base Excess -3.5 mmol/L (-2.0-2.0) L 03/16/17 19:35 Bradley Test Pos 03/16/17 19:35 A-a Gradient 47.0 mmHg 03/16/17 19:35 FiO2 21.000 03/16/17 19:35 Blood Gas Comments Roxie well, afh 03/16/17 19:35 Sodium 144 mmol/L (136-145) 03/22/17 03:15 Corrected Sodium 144 mmol/L (136-145) 03/22/17 03:15 Potassium 3.9 mmol/L (3.5-5.1) 03/22/17 03:15 Chloride 112 mmol/L (98-107) H 03/22/17 03:15 Carbon Dioxide 23.3 mmol/L (21-32) 03/22/17 03:15 BUN 17 mg/dL (7-18) 03/22/17 03:15 Creatinine 0.91 mg/dL (0.55-1.02) 03/22/17 03:15 Est GFR (MDRD) Af Amer > 60 (>60) 03/22/17 03:15 Est GFR (MDRD) Non-Af > 60 (>60) 03/22/17 03:15 Glucose 113 mg/dL (65-99) H 03/22/17 03:15 Lactic Acid 0.4 mmol/L (0.4-2.0) 03/17/17 15:40 Calcium 8.5 mg/dL (8.5-10.1) 03/22/17 03:15 Corrected Calcium 9.9 mg/dL (8.5-10.1) 03/22/17 03:15 Total Bilirubin 0.50 mg/dL (0.2-1.0) 03/22/17 03:15 AST 53 Units/L (15-37) H 03/22/17 03:15 ALT 77 Units/L (12-78) 03/22/17 03:15 Alkaline Phosphatase 76 Units/L (46-116) 03/22/17 03:15 Creatine Kinase 268 Units/L (26-192) H 03/17/17 05:15 CK-MB (CK-2) 3.4 ng/mL (0-4.0) 03/17/17 05:15 CK/CKMB % Calc 1.3 % (<4) 03/17/17 05:15 Troponin I 0.05 ng/mL (0-1.5) 03/17/17 05:15 C-Reactive Protein 148.90 mg/L (0-3.0) H 03/21/17 04:35 B-Natriuretic Peptide 184 pg/mL (0-79) H 03/16/17 16:25 Total Protein 6.0 g/dL (6.4-8.2) L 03/22/17 03:15 Albumin 2.2 g/dL (3.4-5.0) L 03/22/17 03:15 Globulin 3.8 g/dL (2.5-4.5) 03/22/17 03:15 Albumin/Globulin Ratio 0.6 Ratio (1.1-2.1) L 03/22/17 03:15 Specimen Type Catherized urine 03/17/17 20:41 Urine Color Yellow (YELLOW) 03/17/17 20:41 Urine Appearance Slightly hazy (CLEAR) 03/17/17 20:41 Urine pH 5.0 (5.0 - 8.0) 03/17/17 20:41 Ur Specific [place] 1.015 (1.000-1.030) 03/17/17 20:41 Urine Protein 2+ (NEGATIVE) 03/17/17 20:41 Urine Glucose (UA) Negative (NEGATIVE) 03/17/17 20:41 Urine Ketones Negative (NEGATIVE) 03/17/17 20:41 Urine Occult Blood 4+ (NEGATIVE) 03/17/17 20:41 Urine Nitrite Negative (NEGATIVE) 03/17/17 20:41 Urine Bilirubin Negative (NEGATIVE) 03/17/17 20:41 Urine Urobilinogen Normal (NORMAL) 03/17/17 20:41 Ur Leukocyte Esterase 1+ (NEGATIVE) 03/17/17 20:41 Urine RBC 5-8 /HPF (NEGATIVE) 03/17/17 20:41 Urine WBC 4-6 /HPF (NEGATIVE) 03/17/17 20:41 Ur Squamous Epith Cells Rare /HPF (NEGATIVE) 03/17/17 20:41 Amorphous Sediment 3+ /HPF (NEGATIVE) 03/17/17 20:41 Urine Bacteria 1+ /HPF (NEGATIVE) 03/17/17 20:41 Hyaline Casts Few /LPF (NEGATIVE) 03/16/17 22:52 Ur Culture Indicated? Yes/culture set up 03/17/17 20:41 Urinalysis Comment QNS 03/16/17 17:34 Stool Description Ifob collection tube 03/16/17 17:40 Stl Occult Blood (IFOB) Negative (NEGATIVE) 03/16/17 17:40 Influenza A (H1N1) PCR Not detected (NOT DETECT) 03/17/17 15:37 Influenza Type A (PCR) Negative (NEGATIVE) 03/17/17 15:37 Influenza Type B (PCR) Negative (NEGATIVE) 03/17/17 15:37 Streptococcus Screen Negative (NEGATIVE) 03/17/17 15:30 - Plan (1) Dehydration Status: Acute Plan: Continue IVF repeat labs in am (2) Generalized weakness Status: Acute Plan: physical therapy as tolerated (3) SOB (shortness of breath) Status: Acute Plan: supplemental oxygen and agressive incentive spirometer (4) UTI (urinary tract infection) Status: Acute Qualifiers: Urinary tract infection type: acute cystitis Hematuria presence: without hematuria Indwelling urinary catheter type: I Encounter type: E Qualified Code(s): N30.00 - Acute cystitis without hematuria Plan: fortaz and levaquin IV (5) Fever Status: Acute Qualifiers: Fever type: F Encounter type: E Plan: fortaz and levaquin (6) Positive blood culture Status: Acute Plan: fortaz and levaquin (7) Chest congestion Status: Acute Plan: mucinex (8) Hypertension Status: Acute Qualifiers: Hypertension type: H Plan: Losartan 50mg PO Daily
== END 2017-03-22 17:00 | disposition home or self-care (01) | DRG 315 ==
LOC: ER 15:04 → MED/SURG 20:53 → OBSVTOIN 03-17 11:00 → ICU 03-17 16:37
PROVIDERS: ADMIT Internal Medicine; ATTEND Internal Medicine
DX: I95.89 Other hypotension (principal); E86.0 Dehydration; N30.00 Acute cystitis without hematuria; R06.02 Shortness of breath; R53.1 Weakness; R55 Syncope and collapse; R94.31 Abnormal electrocardiogram [ECG] [EKG]; R10.84 Generalized abdominal pain; M13.89 Other specified arthritis, multiple sites; E78.2 Mixed hyperlipidemia; K21.9 Gastro-esophageal reflux disease without esophagitis; K76.0 Fatty (change of) liver, not elsewhere classified; R44.2 Other hallucinations; R50.9 Fever, unspecified; I51.7 Cardiomegaly; B96.29 Other Escherichia coli [E. coli] as the cause of diseases classified elsewhere; R56.9 Unspecified convulsions; R26.89 Other abnormalities of gait and mobility; J02.9 Acute pharyngitis, unspecified
CPT/HCPCS: 36415; 36600; 70450; 71010; 74176; 78582; 80053; 81001; 81003; 82270; 82550; 82553; 82803; 83605; 83880; 84484; 85025; 85378; 85610; 85652; 85730; 86140; 87040; 87070; 87077; 87086; 87088; 87186; 87502; 87503; 87880; 93005; 93010; 94640; 94760; 96365; 96367; 97535; 99284; A4216; A4217; A4222; P9047; G0378; J0696; J0713; J1650; J1956; J3370; J7608; J7620

== ENCOUNTER → 2017-07-04 | Outpatient (CLI) | payer OTHER, MEDICARE ==
[~2017-07-04] MED LIST: NS 100 ML IV 100 ML IV ONE
--- NOTE | 2017-07-04 11:44 | CT ---
CT OF THE ABDOMEN AND PELVIS WITH CONTRAST HISTORY: Right-sided periumbilical pain for 1 month Comparison: 03/17/2017, 06/01/2015 Technique: Multiple axial images of the abdomen and pelvis were obtained from the lung bases to the pubic symphy sis follow the administration of IV contrast as well as oral contrast. Dose reduction techniques inc luding Automated Exposure Control (AEC) and adjustment of mA and kV were utlized. Findings: The heart is normal in size. There is no pericardial effusion. Lung bases are clear without focal con solidation, pleural effusion or pneumothorax. Liver and spleen are normal in size, enhancement characteristics and contour. Redemonstration of hypo enhancing lesion within the inferior to the spleen measuring 2.7 cm on series 5, image 30, grossly s imilar prior. The portal vein is patent. No ductal dilitation. Gallbladder absent. The pancreas is un remarkable. Adrenal glands are normal. Kidneys enhance symmetrically without hydronephrosis or nephro lithiasis. 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 Fat containing umbilical hernia. No abnormal appearing mesenter ic or retroperitoneal lymph nodes. No free fluid or fluid collections. The bladder is normal in appearance. Uterus is absent. No free fluid or abnormal pelvic lymph nodes. No aggressive osseous lesions. Severe multilevel degenerative disc disease of the lumbar spine. IMPRESSION: 1. No source of patient's abdominal pain is identified. 2. Essentially stable splenic lesion. This could be further value with MRI if clinically indicated ho wever splenic lesions are overwhelmingly benign in the absence of known malignancy. Reported By:
== END | disposition home or self-care (01) | DRG 392 ==
LOC: RAD 08:52
PROVIDERS: ATTEND Internal Medicine
DX: R10.33 Periumbilical pain (principal); R10.84 Generalized abdominal pain; D73.89 Other diseases of spleen
CPT/HCPCS: 74177; A4222

== ENCOUNTER → 2017-07-09 | Outpatient (CLI) | payer OTHER, MEDICARE ==
--- NOTE | 2017-07-09 18:11 | MG ---
Examination: Bilateral screening mammogram. Clinical history: Routine screening. Technique: Digital CC and MLO views of both breasts were obtained. Computer aided detection analysis was performed and used during the interpretation. Comparison: 05/27/2016. Findings: The breasts are composed of scattered fibroglandular densities. Benign-appearing calcifications and v ascular calcifications are noted in the breasts bilaterally. No suspicious mass, area of architectural distortion or suspicious cluster of microcalcifications is noted. Impression: 1. No mammographic evidence of malignancy. BI-RADS category 2-benign findings. Recommend routine annual screening mammogram. Diagnostic CAD was utilized and reviewed. * 0 (ZERO) - ASSESSMENT INCOMPLETE; ADDITIONAL IMAGING IS NEEDED. * 0C - ASSESSMENT INCOMPLETE, NEEDS ADDITIONAL IMAGING EVALUATION AND/OR PRIOR MAMMOGRAMS FOR COMPARI SON. * 1/1 (ONE) - NEGATIVE. * 2/II (TWO) - BENIGN FINDINGS. * 3/III (THREE) - PROBABLY BENIGN FINDING; SHORT INTERVAL FOLLOW-UP SUGGESTED. * 4/IV (FOUR) - SUSPICIOUS ABNORMALITY; BIOPSY SHOULD BE CONSIDERED. * 5/V - HIGHLY SUSPICIOUS OF MALIGNANCY; BIOPSY SHOULD BE PERFORMED. * 6/ - KNOWN BIOPSY PROVEN MALIGNANCY-APPROPRIATE ACTION SHOULD BE TAKEN. A NEGATIVE X-RAY REPORT SHOULD NOT DELAY BIOPSY IF A DOMINANT OR CLINICALLY SUSPICIOUS MASS IS PRESENT; 4 TO 8 PERCENT OF CANCERS ARE NOT IDENTIFIED BY X-RAY. A NEGATIVE REPORT MAY REINFORCE THE CLINICAL IMPRESSION. ADENOSIS AND DENSE BREASTS MAY OBSCURE AN UNDERLYING NEOPLASM. Reported By:
== END ==
LOC: RAD 08:50
PROVIDERS: ATTEND Internal Medicine
DX: Z12.31 Encounter for screening mammogram for malignant neoplasm of breast (principal)
CPT/HCPCS: 77067

== ENCOUNTER 2018-01-15 07:05 | Day surgery (SDC) | payer OTHER, MEDICARE ==
[2018-01-15] MEDS ORDERED: D5 LR 1000 ML 1,000 ML IV ONE (07:14)
[2018-01-15] MEDS ORDERED: DIPRIVAN VIAL 20 ML ONE (08:27)
[2018-01-15] MEDS ORDERED: XYLOCAINE 2 % (PLAIN) ONE (08:27)
[2018-01-15 09:10] VITALS: BP 158/61
== END 2018-01-15 09:14 | disposition home or self-care (01) ==
LOC: SURG1 07:05
PROVIDERS: ATTEND Internal Medicine Gastroenterology
PROC: 0DBN8ZX Excision of Sigmoid Colon, Via Natural or Artificial Opening Endoscopic, Diagnostic (ICD-10-PCS; principal; 2018-01-15 08:30)
PROC: 0DBH8ZX Excision of Cecum, Via Natural or Artificial Opening Endoscopic, Diagnostic (ICD-10-PCS; principal; 2018-01-15 08:30)
PROC: 0DJD8ZZ Inspection of Lower Intestinal Tract, Via Natural or Artificial Opening Endoscopic (ICD-10-PCS; principal; 2018-01-15 08:30)
PROC: 0DBK8ZX Excision of Ascending Colon, Via Natural or Artificial Opening Endoscopic, Diagnostic (ICD-10-PCS; principal; 2018-01-15 08:30)
DX: K63.5 Polyp of colon (principal); K57.30 Diverticulosis of large intestine without perforation or abscess without bleeding; K64.0 First degree hemorrhoids; Z86.010 Personal history of colon polyps; Z80.0 Family history of malignant neoplasm of digestive organs; D12.5 Benign neoplasm of sigmoid colon; D12.0 Benign neoplasm of cecum
CPT/HCPCS: 99100; A4217; J2001; J3490; J7120

== ENCOUNTER 2024-08-14 23:21 | Inpatient (IN) ==
--- NOTE | 2024-08-14 23:42 | DR.GENAD ---
HPI Time Seen Time Seen by Provider: 08/14/24 23:41 PCP Primary Care Physician: Robb Complaint/Symptoms Chief Complaint:: pt's family states Since she was given injections and dye for her eyes last thrusday she has become weak, started shaking and having black out spells. COVID-19 Coronavirus risk:travel/contact w/high risk person: No Has patient experienced Coronavirus symptoms: No Nurses notes reviewed Nurses Notes Review: Yes Source History Provided: Patient Mode of Arrival Mode of Arrival: Wheelchair Timing Onset of Chief Complaint: 08/14/24 PMH PMH Past Medical History: Yes Past Medical History: Anxiety, Arthritis, Depression, Dyslipidemia, GERD, Hypertension, Renal Disease and Sleep Apnea Past Surgical History: Yes Surgical History: Appendectomy, Cholecystectomy, Hysterectomy and Other Family History History of Family Medical Conditions: Yes Family Medical History: Cancer and Hypertension Social History Do you use any recreational Drugs:: No Travel Risk Coronavirus risk:travel/contact w/high risk person: No Has patient experienced Coronavirus symptoms: No Infectious screening In the last 2 months have you had wt loss of >10#?: NO Have you had fever, night sweats or hemotysis?: No Have you traveled outside the country in the last 6 months?: No Isolation: Standard PE Vital Signs Vitals: Vital Signs Temperature 98.2 F Pulse Rate 66 Pulse Rate 67 Pulse Rate 66 Pulse Rate 71 Pulse Rate 68 Pulse Rate 69 Pulse Rate 99 Pulse Rate 68 Pulse Rate 113 Pulse Rate 71 Pulse Rate 73 Pulse Rate 75 Pulse Rate 73 Pulse Rate 68 Pulse Rate 84 Pulse Rate 75 Respiratory Rate 30 Respiratory Rate 38 Respiratory Rate 47 Respiratory Rate 23 Respiratory Rate 29 Respiratory Rate 31 Respiratory Rate 30 Respiratory Rate 37 Respiratory Rate 41 Respiratory Rate 41 Respiratory Rate 16 Respiratory Rate 16 Respiratory Rate 20 Blood Pressure [Right Arm] 105/47 Blood Pressure 103/55 Blood Pressure 117/56 Blood Pressure 104/51 Blood Pressure 102/63 Blood Pressure 105/47 Blood Pressure 185/77 O2 Sat by Pulse Oximetry 98 O2 Sat by Pulse Oximetry 98 O2 Sat by Pulse Oximetry 81 O2 Sat by Pulse Oximetry 74 O2 Sat by Pulse Oximetry 96 O2 Sat by Pulse Oximetry 93 O2 Sat by Pulse Oximetry 98 O2 Sat by Pulse Oximetry 99 ROR Labs Reviewed 08/14/24 23:45 08/14/24 23:45 Laboratory: WBC 6.7 X10^3/uL (3.6-10.0) 08/14/24 23:45 RBC 3.49 X10^6/uL (3.5-5.4) L 08/14/24 23:45 Hgb 10.7 g/dL (12.0-16.0) L 08/14/24 23:45 Hct 31.9 % (36.0-47.0) L 08/14/24 23:45 MCV 91.5 fL (80.0-100.0) 08/14/24 23:45 MCH 30.7 pg (27.0-34.0) 08/14/24 23:45 MCHC 33.5 g/dL (33.0-35.0) 08/14/24 23:45 RDW 14.4 % (11.6-16.5) 08/14/24 23:45 Plt Count 199 X10^3/uL (150.0-450.0) 08/14/24 23:45 MPV 8.5 fL (7.4-11.0) 08/14/24 23:45 Neut % (Auto) 63.4 % (42.0-75.0) 08/14/24 23:45 Lymph % (Auto) 24.0 % (21.0-51.0) 08/14/24 23:45 [place] % (Auto) 9.3 % (0.0-13.0) 08/14/24 23:45 Eos % (Auto) 2.7 % (0.9-2.9) 08/14/24 23:45 Baso % (Auto) 0.6 % (0.2-1.0) 08/14/24 23:45 Neut # (Auto) 4.2 x10^3/uL (2.2-4.8) 08/14/24 23:45 Lymph # (Auto) 1.6 X10^3/uL (1.3-2.9) 08/14/24 23:45 [place] # (Auto) 0.6 x10^3/uL (0.3-0.8) 08/14/24 23:45 Eos # (Auto) 0.2 x10^3/uL (0.0-0.2) 08/14/24 23:45 Baso # (Auto) 0.0 X10^3/uL (0.0-0.1) 08/14/24 23:45 Absolute Nucleated RBC 0.0 /100WBC 08/14/24 23:45 Sodium 144 mmol/L (136-145) 08/14/24 23:45 Corrected Sodium TNP 08/14/24 23:45 Potassium 5.3 mmol/L (3.5-5.1) H 08/14/24 23:45 Chloride 110 mmol/L (98-107) H 08/14/24 23:45 Carbon Dioxide 29.5 mmol/L (21-32) 08/14/24 23:45 BUN 44 mg/dL (7-18) H 08/14/24 23:45 Creatinine 1.68 mg/dL (0.55-1.02) H 08/14/24 23:45 Est GFR (MDRD) Af Amer 37 (>60) L 08/14/24 23:45 Est GFR (MDRD) Non-Af 31 (>60) L 08/14/24 23:45 Glucose 82 mg/dL (65-99) 08/14/24 23:45 Calcium 8.9 mg/dL (8.5-10.1) 08/14/24 23:45 Corrected Calcium TNP 08/14/24 23:45 Total Bilirubin 0.20 mg/dL (0.2-1.0) 08/14/24 23:45 AST 23 Units/L (15-37) 08/14/24 23:45 ALT 30 Units/L (12-78) 08/14/24 23:45 Alkaline Phosphatase 94 Units/L (46-116) 08/14/24 23:45 Creatine Kinase 72 Units/L (26-192) 08/14/24 23:45 Troponin I High Sens 35.8 ng/L (4.0-60.0) 08/14/24 23:45 B-Natriuretic Peptide 51.8 pg/mL (0-79) 08/14/24 23:45 Total Protein 6.9 g/dL (6.4-8.2) 08/14/24 23:45 Albumin 3.8 g/dL (3.4-5.0) 08/14/24 23:45 Globulin 3.1 g/dL (2.5-4.5) 08/14/24 23:45 Albumin/Globulin Ratio 1.2 Ratio (1.1-2.1) 08/14/24 23:45 Specimen Type Catherized urine 08/15/24 01:21 EST Urine Color Yellow (YELLOW) 08/15/24 01:21 EST Urine Appearance Clear (CLEAR) 08/15/24 01:21 EST Urine pH 5.0 (5.0 - 8.0) 08/15/24 01:21 EST Ur Specific [place] 1.020 (1.000-1.030) 08/15/24 01:21 EST Urine Protein Negative (NEGATIVE) 08/15/24 01:21 EST Urine Glucose (UA) Negative (NEGATIVE) 08/15/24 01:21 EST Urine Ketones Negative (NEGATIVE) 08/15/24 01:21 EST Urine Blood Negative (NEGATIVE) 08/15/24 01:21 EST Urine Nitrite Negative (NEGATIVE) 08/15/24 01:21 EST Urine Bilirubin Negative (NEGATIVE) 08/15/24 01:21 EST Urine Urobilinogen Normal (NORMAL) 08/15/24 01:21 EST Ur Leukocyte Esterase 1+ (NEGATIVE) 08/15/24 01:21 EST Urine RBC 3-5 /HPF (0-3) A 08/15/24 01:21 EST Urine WBC 5-10 /HPF (0-5) A 08/15/24 01:21 EST Ur Squamous Epith Cells Negative /HPF (NEGATIVE) 08/15/24 01:21 EST Ur Transition Epith Cell Few /HPF (NEGATIVE) 08/15/24 01:21 EST Amorphous Sediment 2+ /HPF (NEGATIVE) 08/15/24 01:21 EST Urine Bacteria 1+ /HPF (NEGATIVE) 08/15/24 01:21 EST Hyaline Casts Few /LPF (NEGATIVE) 08/15/24 01:21 EST Ur Culture Indicated? No/not indicated 08/15/24 01:21 EST Opioid Opioid Risk Tool Age (Fernandez box if 16-45): No History of Preadolescent Sexual Abuse: No Total: 0 Total Score Risk Category: Low Risk Copyright: Marlo DUONG predicting aberrant behaviors Discharge Plan Diagnosis Discharge Problem: Acute dehydration, Acute hyperkalemia, Generalized weakness, Shaking chills AMS (altered mental status) Qualifiers: Altered mental status type: transient alteration of awareness Qualified Code(s): R40.4 - Transient alteration of awareness UTI (urinary tract infection) Qualifiers: Urinary tract infection type: site unspecified Hematuria presence: with hematuria Qualified Code(s): N39.0 - Urinary tract infection, site not specified Discharge Plan Patient Disposition: 09 ADMITTED INPATIENT Condition: Stable Orders to Discharge Patient Discharge Orders: Transfer (Routine); Ordered 08/15/24 Ordered By: NAEEM ALONSO
[2024-08-15 00:02] LABS: HEMOGLOBIN 10.7 g/dL (12.0-16.0); WHITE BLOOD COUNT 6.7 X10^3/uL (3.6-10.0)
[2024-08-15 00:09] LABS: ALANINE AMINOTRANSFERASE 30 Units/L (12-78); ALBUMIN 3.8 g/dL (3.4-5.0); ALKALINE PHOSPHATASE 94 Units/L (46-116); ASPARTATE AMINO TRANSFERASE 23 Units/L (15-37); BASOPHILS % (AUTO) 0.6 % (0.2-1.0); BLOOD UREA NITROGEN 44 mg/dL (7-18); CALCIUM 8.9 mg/dL (8.5-10.1); CARBON DIOXIDE 29.5 mmol/L (21-32); CHLORIDE 110 mmol/L (98-107); CREATINE KINASE 72 Units/L (26-192); CREATININE 1.68 mg/dL (0.55-1.02); EOSINOPHILS # (AUTO) 0.2 x10^3/uL (0.0-0.2); EOSINOPHILS % (AUTO) 2.7 % (0.9-2.9); GLUCOSE 82 mg/dL (65-99); HEMATOCRIT 31.9 % (36.0-47.0); LYMPHOCYTES # (AUTO) 1.6 X10^3/uL (1.3-2.9); MEAN CORPUSCULAR HEMOGLOBIN 30.7 pg (27.0-34.0); MEAN CORPUSCULAR HGB CONC 33.5 g/dL (33.0-35.0); MEAN CORPUSCULAR VOLUME 91.5 fL (80.0-100.0); MEAN PLATELET VOLUME 8.5 fL (7.4-11.0); MONOCYTES # (AUTO) 0.6 x10^3/uL (0.3-0.8); MONOCYTES % (AUTO) 9.3 % (0.0-13.0); NEUTROPHILS # (AUTO) 4.2 x10^3/uL (2.2-4.8); NEUTROPHILS % (AUTO) 63.4 % (42.0-75.0); PLATELET COUNT 199 X10^3/uL (150.0-450.0); POTASSIUM 5.3 mmol/L (3.5-5.1); RED BLOOD COUNT 3.49 X10^6/uL (3.5-5.4); RED CELL DISTRIBUTION WIDTH 14.4 % (11.6-16.5); SODIUM 144 mmol/L (136-145); TOTAL PROTEIN 6.9 g/dL (6.4-8.2); eGFR NON BLACK RACES 31 (>60)
--- NOTE | 2024-08-15 00:18 | EKG ---
Test Reason : HTN Blood Pressure : */* mmHG Vent. Rate : 69 BPM Atrial Rate : 69 BPM P-R Int : 204 ms QRS Dur : 124 ms QT Int : 414 ms P-R-T Axes : 42 -42 56 degrees QTc Int : 443 ms Normal sinus rhythm Poor R-wave progression Left axis deviation Nonspecific intraventricular conduction delay Minimal voltage criteria for LVH, may be normal variant ( Ellsworth product ) Abnormal ECG No previous ECGs available Confirmed by Zachery Pulido MD ([id number]) on 08/16/2024 7:51:34 AM Referred By: Confirmed By: Zachery Pulido MD
--- NOTE | 2024-08-15 01:07 | CT ---
EXAM: CT HEAD WITHOUT IV CONTRAST HISTORY: AMS; COMPARISON: None. TECHNIQUE: Axial images were acquired of the head without IV contrast. Coronal and sagittal images were provided . All images were reviewed in a variety of windows and levels. LIMITATIONS: Please note that CT has low sensitivity and accuracy for identifying acute infarction. I n addition, there are portions of the brain that are affected by beam hardening artifact which furthe r greatly limits identification of an acute infarct. RADIATION REDUCTION TECHNIQUE: Automated exposure control, Adjustment of the mA and/or kV according t o patient size, or iterative reconstruction techniques were used. FINDINGS: There is diffuse cerebral atrophy with a regional distribution of low attenuation along the periventr icular white matter most likely representing small vessel ischemic changes which are to a degree that would be considered within normal limits for the patient's stated age. There is no evidence of an acute intracranial bleed. There is no evidence of a mass or midline shift. There is no evidence of an extra-axial fluid collection. The joya-white matter differentiation is within normal limits. The visualized bones are unremarkable. The visualized sinuses are clear. The mastoid air cells are well-aerated. IMPRESSION: 1. INVOLUTIONAL CHANGES ARE PRESENT WITH FINDINGS SUGGESTING SMALL VESSEL ISCHEMIC DISEASE WHICH IS T O A DEGREE THAT WOULD BE CONSIDERED WITHIN NORMAL LIMITS FOR THE PATIENT'S STATED AGE. 2. THERE IS NO EVIDENCE OF ACUTE INTRACRANIAL BLEED. THIS IS AN ELECTRONICALLY VERIFIED FINAL REPORT 08/15/2024 1:03 AM - Electronically signed by Akbar Azar MD
[2024-08-15] MEDS: NS 1,000 ML IV 1,000 ML IV SCH (01:11)
[2024-08-15] MEDS: ROCEPHIN VIAL 1 GRAM 1 G in NS 100 ML IV 100 ML IV ONE (01:12)
[2024-08-15 01:29] LABS: BILIRUBIN,URINE NEGATIVE (NEGATIVE); BLOOD/HEMOGLOBIN,URINE NEGATIVE (NEGATIVE); GLUCOSE, URINE NEGATIVE (NEGATIVE); KETONES,URINE NEGATIVE (NEGATIVE); LEUKOCYTE ESTERASE ,URINE 1+ (NEGATIVE); NITRITES,URINE NEGATIVE (NEGATIVE); PROTEIN,URINE NEGATIVE (NEGATIVE); UROBILINOGEN,URINE NORMAL (NORMAL)
[2024-08-15 01:38] LABS: APPEARANCE,URINE CLEAR (CLEAR); COLOR,URINE YELLOW (YELLOW)
[2024-08-15 01:43] LABS: BACTERIA,URINE 1+ /HPF (NEGATIVE); HYALINE CASTS, URINE FEW /LPF (NEGATIVE); SQUAMOUS EPITHELIAL CELL,UR NEGATIVE /HPF (NEGATIVE); TRANSITIONAL EPI CELLS,URINE FEW /HPF (NEGATIVE)
[2024-08-15] MEDS: NORCO 5/325 MG TAB PO PRN (05:08)
[2024-08-15 05:35] LABS: BASOPHILS # (AUTO) 0.1 X10^3/uL (0.0-0.1); BASOPHILS % (AUTO) 0.8 % (0.2-1.0); EOSINOPHILS # (AUTO) 0.2 x10^3/uL (0.0-0.2); EOSINOPHILS % (AUTO) 3.2 % (0.9-2.9); HEMOGLOBIN 10.8 g/dL (12.0-16.0); LYMPHOCYTES # (AUTO) 1.7 X10^3/uL (1.3-2.9); LYMPHOCYTES % (AUTO) 25.6 % (21.0-51.0); MEAN CORPUSCULAR HEMOGLOBIN 30.8 pg (27.0-34.0); MEAN CORPUSCULAR HGB CONC 33.6 g/dL (33.0-35.0); MEAN CORPUSCULAR VOLUME 91.4 fL (80.0-100.0); MEAN PLATELET VOLUME 8.3 fL (7.4-11.0); MONOCYTES # (AUTO) 0.7 x10^3/uL (0.3-0.8); MONOCYTES % (AUTO) 10.9 % (0.0-13.0); NEUTROPHILS % (AUTO) 59.5 % (42.0-75.0); PLATELET COUNT 189 X10^3/uL (150.0-450.0); RED CELL DISTRIBUTION WIDTH 14.1 % (11.6-16.5); WHITE BLOOD COUNT 6.8 X10^3/uL (3.6-10.0)
[2024-08-15 05:54] LABS: ALANINE AMINOTRANSFERASE 27 Units/L (12-78); ALBUMIN 3.5 g/dL (3.4-5.0); ALKALINE PHOSPHATASE 84 Units/L (46-116); ASPARTATE AMINO TRANSFERASE 22 Units/L (15-37); BLOOD UREA NITROGEN 42 mg/dL (7-18); CALCIUM 8.7 mg/dL (8.5-10.1); CARBON DIOXIDE 28.2 mmol/L (21-32); CHLORIDE 111 mmol/L (98-107); CREATININE 1.49 mg/dL (0.55-1.02); GLUCOSE 82 mg/dL (65-99); MAGNESIUM 2.3 mg/dL (2.0-2.9); POTASSIUM 4.8 mmol/L (3.5-5.1); SODIUM 145 mmol/L (136-145); TOTAL PROTEIN 6.4 g/dL (6.4-8.2); eGFR NON BLACK RACES 35 (>60)
--- NOTE | 2024-08-15 06:24 | RAD ---
EXAM:CHEST, 1 VIEWHISTORY:Shortness breathCOMPARISON:None available.FINDINGS:The trachea is midline. The cardiac silhouette is unremarkable . The lungs are clear without focal infiltrate or effusion. The bony thorax is unremarkable.IMPRESSION:No acute cardiopulmonary disease.THIS IS AN ELECTRONICALLY VERIFIED FINAL [id number]/15/2024 6:12 AM - Electronically signed by Kaden Jacobs MD
--- NOTE | 2024-08-15 11:22 | DR.H&P ---
H&P History & Physical for Day of: H&P Date: 08/15/24 Chief Complaint Chief Complaint: generalized weakness, AMS History of Present Illness History of Present Illness: Ms Vann is a 84y/o female with a PMH of HTN, HLD, GERD, CKD, CAD, CHF, anxiety and chronic pain presented with worsening weakness and confusion. She states she was not able to get out of her wheelchair to ambulate to the bathroom and fell back in the seat due to feeling weak. She reports having injections in her eyes done on and noticed feeling bad the next day. She has not been eating or drinking much. ER work up showed elevated creatinine, UA showed infection. She was started on hydration and IV fluids. She also had some confusion initially, CT-brain was negative for acute changes. CXR was negative. She is feeling better today. She is non-ambualtory and can do some transfers. Labs/imaging reviewed: -WBC 6.8 Hgb 10.8 BUN/Cr 42/1.49 Trop (-) BNP (-) Plan: admit to med-surg. Continue hydration. Continue IV Rocephin, will order ur ine culture. Resume home medications when reconciled. PT/OT consult. Replace electrolytes prn. Monitor AM labs/imaging. Past Medical History Past Medical History: Anxiety, Arthritis, Depression, Dyslipidemia, GERD, Hypertension, Renal Disease and Sleep Apnea Additional Medical History: anemia Past Surgical History Surgical History: Appendectomy, Cholecystectomy, Hysterectomy and Other Family History Family Medical History: Diabetes Mellitus, Cancer, Coronary Artery Disease and Hypertension Social History Alcohol Use: None Drug Use: None Medications Home Medications: Home Medications Medication Instructions Recorded Confirmed Type clopidogrel 75 mg tablet 75 mg PO QDAY 02/17/23 08/14/24 History dorzolamide-timolol (PF) 2 %-0.5 % 1 drp ophthalmic (eye) BID 02/17/23 08/14/24 History eye drops in a dropperette furosemide 40 mg tablet 40 mg PO QDAY 02/17/23 04/05/24 History isosorbide mononitrate 30 mg 30 mg PO QDAY 02/17/23 04/05/24 History tablet,extended release 24 hr spironolactone 25 mg tablet 25 mg PO QDAY 02/17/23 04/05/24 History brimonidine 0.2 % eye drops 0 drp ophthalmic (eye) 03/20/23 04/05/24 History isosorbide mononitrate 30 mg 30 mg PO QDAY 08/14/24 08/14/24 History tablet,extended release 24 hr morphine 30 mg tablet,extended 30 mg PO BID 08/14/24 08/14/24 History release sacubitril 24 mg-valsartan 26 mg 1 tab PO BID 08/14/24 08/14/24 History tablet (Entresto) Allergies Allergies Allergy/AdvReac Type Severity Reaction Status Date / Time fenoprofen [Nalfon] Allergy Unknown Hives Verified 04/05/24 11:08 latex Allergy Verified 08/14/24 23:40 Labs 08/15/24 05:11 08/15/24 05:11 Labs: Laboratory WBC 6.8 X10^3/uL (3.6-10.0) 08/15/24 05:11 RBC 3.50 X10^6/uL (3.5-5.4) 08/15/24 05:11 Hgb 10.8 g/dL (12.0-16.0) L 08/15/24 05:11 Hct 32.0 % (36.0-47.0) L 08/15/24 05:11 MCV 91.4 fL (80.0-100.0) 08/15/24 05:11 MCH 30.8 pg (27.0-34.0) 08/15/24 05:11 MCHC 33.6 g/dL (33.0-35.0) 08/15/24 05:11 RDW 14.1 % (11.6-16.5) 08/15/24 05:11 Plt Count 189 X10^3/uL (150.0-450.0) 08/15/24 05:11 MPV 8.3 fL (7.4-11.0) 08/15/24 05:11 Neut % (Auto) 59.5 % (42.0-75.0) 08/15/24 05:11 Lymph % (Auto) 25.6 % (21.0-51.0) 08/15/24 05:11 [place] % (Auto) 10.9 % (0.0-13.0) 08/15/24 05:11 Eos % (Auto) 3.2 % (0.9-2.9) H 08/15/24 05:11 Baso % (Auto) 0.8 % (0.2-1.0) 08/15/24 05:11 Neut # (Auto) 4.0 x10^3/uL (2.2-4.8) 08/15/24 05:11 Lymph # (Auto) 1.7 X10^3/uL (1.3-2.9) 08/15/24 05:11 [place] # (Auto) 0.7 x10^3/uL (0.3-0.8) 08/15/24 05:11 Eos # (Auto) 0.2 x10^3/uL (0.0-0.2) 08/15/24 05:11 Baso # (Auto) 0.1 X10^3/uL (0.0-0.1) 08/15/24 05:11 Absolute Nucleated RBC 0.1 /100WBC 08/15/24 05:11 Sodium 145 mmol/L (136-145) 08/15/24 05:11 Corrected Sodium TNP 08/15/24 05:11 Potassium 4.8 mmol/L (3.5-5.1) 08/15/24 05:11 Chloride 111 mmol/L (98-107) H 08/15/24 05:11 Carbon Dioxide 28.2 mmol/L (21-32) 08/15/24 05:11 BUN 42 mg/dL (7-18) H 08/15/24 05:11 Creatinine 1.49 mg/dL (0.55-1.02) H 08/15/24 05:11 Est GFR (MDRD) Af Amer 43 (>60) L 08/15/24 05:11 Est GFR (MDRD) Non-Af 35 (>60) L 08/15/24 05:11 Glucose 82 mg/dL (65-99) 08/15/24 05:11 Calcium 8.7 mg/dL (8.5-10.1) 08/15/24 05:11 Corrected Calcium TNP 08/15/24 05:11 Magnesium 2.3 mg/dL (2.0-2.9) 08/15/24 05:11 Total Bilirubin 0.20 mg/dL (0.2-1.0) 08/15/24 05:11 AST 22 Units/L (15-37) 08/15/24 05:11 ALT 27 Units/L (12-78) 08/15/24 05:11 Alkaline Phosphatase 84 Units/L (46-116) 08/15/24 05:11 Creatine Kinase 72 Units/L (26-192) 08/14/24 23:45 Troponin I High Sens 35.8 ng/L (4.0-60.0) 08/14/24 23:45 B-Natriuretic Peptide 51.8 pg/mL (0-79) 08/14/24 23:45 Total Protein 6.4 g/dL (6.4-8.2) 08/15/24 05:11 Albumin 3.5 g/dL (3.4-5.0) 08/15/24 05:11 Globulin 2.9 g/dL (2.5-4.5) 08/15/24 05:11 Albumin/Globulin Ratio 1.2 Ratio (1.1-2.1) 08/15/24 05:11 Specimen Type Catherized urine 08/15/24 01:21 EST Urine Color Yellow (YELLOW) 08/15/24 01:21 EST Urine Appearance Clear (CLEAR) 08/15/24 01:21 EST Urine pH 5.0 (5.0 - 8.0) 08/15/24 01:21 EST Ur Specific [place] 1.020 (1.000-1.030) 08/15/24 01:21 EST Urine Protein Negative (NEGATIVE) 08/15/24 01:21 EST Urine Glucose (UA) Negative (NEGATIVE) 08/15/24 01:21 EST Urine Ketones Negative (NEGATIVE) 08/15/24 01:21 EST Urine Blood Negative (NEGATIVE) 08/15/24 01:21 EST Urine Nitrite Negative (NEGATIVE) 08/15/24 01:21 EST Urine Bilirubin Negative (NEGATIVE) 08/15/24 01:21 EST Urine Urobilinogen Normal (NORMAL) 08/15/24 01:21 EST Ur Leukocyte Esterase 1+ (NEGATIVE) 08/15/24 01:21 EST Urine RBC 3-5 /HPF (0-3) A 08/15/24 01:21 EST Urine WBC 5-10 /HPF (0-5) A 08/15/24 01:21 EST Ur Squamous Epith Cells Negative /HPF (NEGATIVE) 08/15/24 01:21 EST Ur Transition Epith Cell Few /HPF (NEGATIVE) 08/15/24 01:21 EST Amorphous Sediment 2+ /HPF (NEGATIVE) 08/15/24 01:21 EST Urine Bacteria 1+ /HPF (NEGATIVE) 08/15/24 01:21 EST Hyaline Casts Few /LPF (NEGATIVE) 08/15/24 01:21 EST Ur Culture Indicated? No/not indicated 08/15/24 01:21 EST Review of Systems Constitutional: Weakness Eyes: No Symptoms Reported ENT: No Symptoms Reported Respiratory: No Symptoms Reported Cardiovascular: No Symptoms Reported Gastrointestinal: No Symptoms Reported Genitourinary: No Symptoms Reported Musculoskeletal: No Symptoms Reported Skin: No Symptoms Reported Neurological: Confusion Physical Exam Vital Signs: Vital Signs Temperature 98.2 F Temperature 98.1 F Pulse Rate [Right Brachial] 60 Pulse Rate [Right Brachial] 77 Pulse Rate 65 Pulse Rate 70 Pulse Rate 75 Respiratory Rate 19 Respiratory Rate 16 Respiratory Rate 22 Respiratory Rate 19 Respiratory Rate 28 Respiratory Rate 32 Respiratory Rate 23 Blood Pressure [Right Arm] 131/58 Blood Pressure [Right Arm] 162/71 Blood Pressure 132/61 O2 Sat by Pulse Oximetry 97 O2 Sat by Pulse Oximetry 97 Oriented: Normal Eyes: Normal Nose: Normal Throat: Dry Respiratory: Diminished Throughout Cardiovascular: Edema Auscultation: Bowel Sounds: Normal Palpation: Normal Tenderness: Normal Skin: Normal Musculoskeletal: Leg and Motor Deficit Psychiatric: Normal Mood Description: Calm Affect: Normal Speech Pattern: Clear and Appropriate Assessment/Plan (1) Acute dehydration: Status: Acute (2) Generalized weakness: Status: Acute (3) AMS (altered mental status): Qualifiers: Altered mental status type: transient alteration of awareness Qualified Code(s): R40.4 - Transient alteration of awareness Status: Acute (4) UTI (urinary tract infection): Qualifiers: Hematuria presence: with hematuria Urinary tract infection type: site unspecified Qualified Code(s): N39.0 - Urinary tract infection, site not specified; R31.9 - Hematuria, unspecified Status: Acute (5) Neuropathic pain of both legs: Status: Acute (6) Parkinsonism: Qualifiers: Parkinsonism type: unspecified Qualified Code(s): G20.C - Parkinsonism, unspecified Status: Acute (7) Hypertension: Qualifiers: Hypertension type: primary hypertension Qualified Code(s): I10 - Es sential (primary) hypertension Status: Acute Review H&P Reviewed: Yes Patient was examined?: Yes
[2024-08-15] MEDS: PROTONIX TAB 40 MG PO SCH (11:54)
[2024-08-15] MEDS: LOVENOX INJ 30 MG SYR SC SCH (11:54)
[2024-08-15] MEDS ORDERED: LOVENOX INJ 40 MG SYR SC SCH (12:00)
[2024-08-15] MEDS ORDERED: NITROSTAT SL PRN (15:22)
[2024-08-15] MEDS ORDERED: ZANAFLEX PO PRN (15:27)
[2024-08-15] MEDS ORDERED: KENALOG CREAM TOP PRN (15:41)
[2024-08-15] MEDS: ZAROXOLYN PO SCH (15:53)
[2024-08-15] MEDS: ZyrTEC TAB 10 MG PO SCH (15:53)
[2024-08-15] MEDS: ZOLOFT PO SCH (15:53)
[2024-08-15] MEDS: PLAVIX PO SCH (15:54)
[2024-08-15] MEDS: FLOMAX PO SCH (15:54)
[2024-08-15] MEDS: IMDUR PO SCH (15:54)
[2024-08-15] MEDS: VALTREX PO SCH (15:54)
[2024-08-15] MEDS: LASIX PO SCH (15:55)
[2024-08-15] MEDS: ALPHAGAN 0.2% OPHTH SOLN EACHEYE SCH (16:00)
[2024-08-15] MEDS: ZOLOFT ONE (16:00)
[2024-08-15] MEDS ORDERED: M.S. CONTIN 30 MG EXTENDED RELEASE PO SCH (21:00)
[2024-08-15] MEDS: M.S. CONTIN 15 MG (EXTENDED RELEASE) PO SCH (21:37)
[2024-08-15] MEDS: COREG TAB 12.5 MG PO SCH (21:38)
[2024-08-15] MEDS: CRESTOR TAB 10 MG PO SCH (21:38)
[2024-08-15] MEDS: ENTRESTO 24/26 MG TABLET PO SCH (21:38)
[2024-08-15] MEDS: COLACE CAP 100 MG PO SCH (21:39)
[2024-08-15] MEDS: REQUIP PO SCH (21:39)
[2024-08-15] MEDS: NEURONTIN CAP 300 MG PO SCH (21:39)
[2024-08-15] MEDS ORDERED: NEURONTIN TAB 600 MG PO SCH (22:00)
[2024-08-16] MEDS: ROCEPHIN VIAL 1 GRAM 1 G in NS 100 ML IV 100 ML IV SCH (03:19)
[2024-08-16] MEDS: GENTAMICIN TOPICAL OINT TOP SCH (03:57)
[2024-08-16] MEDS: TRUSOPT PLUS (OPHTH) EACHEYE SCH (03:59)
[2024-08-16 05:42] LABS: BASOPHILS % (AUTO) 0.8 % (0.2-1.0); EOSINOPHILS # (AUTO) 0.1 x10^3/uL (0.0-0.2); EOSINOPHILS % (AUTO) 2.4 % (0.9-2.9); HEMATOCRIT 27.4 % (36.0-47.0); HEMOGLOBIN 9.3 g/dL (12.0-16.0); LYMPHOCYTES # (AUTO) 1.6 X10^3/uL (1.3-2.9); LYMPHOCYTES % (AUTO) 26.8 % (21.0-51.0); MEAN CORPUSCULAR HGB CONC 34.1 g/dL (33.0-35.0); MEAN CORPUSCULAR VOLUME 90.8 fL (80.0-100.0); MEAN PLATELET VOLUME 8.4 fL (7.4-11.0); MONOCYTES # (AUTO) 0.5 x10^3/uL (0.3-0.8); MONOCYTES % (AUTO) 8.9 % (0.0-13.0); NEUTROPHILS # (AUTO) 3.7 x10^3/uL (2.2-4.8); NEUTROPHILS % (AUTO) 61.1 % (42.0-75.0); PLATELET COUNT 175 X10^3/uL (150.0-450.0); RED BLOOD COUNT 3.01 X10^6/uL (3.5-5.4); RED CELL DISTRIBUTION WIDTH 13.8 % (11.6-16.5); WHITE BLOOD COUNT 6.1 X10^3/uL (3.6-10.0)
[2024-08-16 05:46] LABS: BLOOD UREA NITROGEN 36 mg/dL (7-18); CALCIUM 8.3 mg/dL (8.5-10.1); CARBON DIOXIDE 27.9 mmol/L (21-32); CHLORIDE 112 mmol/L (98-107); CREATININE 1.32 mg/dL (0.55-1.02); GLUCOSE 86 mg/dL (65-99); POTASSIUM 3.7 mmol/L (3.5-5.1); SODIUM 147 mmol/L (136-145); eGFR NON BLACK RACES 41 (>60)
[2024-08-16 06:28] LABS: ALANINE AMINOTRANSFERASE 23 Units/L (12-78); ALBUMIN 2.8 g/dL (3.4-5.0); ALKALINE PHOSPHATASE 67 Units/L (46-116); ASPARTATE AMINO TRANSFERASE 19 Units/L (15-37); COR CA(FOR HYPOALB) 9.3 mg/dL (8.5-10.1); MAGNESIUM 1.9 mg/dL (2.0-2.9); TOTAL PROTEIN 5.5 g/dL (6.4-8.2)
[2024-08-16] MEDS: ZOLOFT ONE (08:29)
[2024-08-16] MEDS: KLOR-CON 10 MEQ TAB PO SCH (08:35)
[2024-08-16] MEDS: DESITIN DIAPER RASH CREAM TOP SCH (08:37)
[2024-08-16] MEDS: NS 1,000 ML IV 1,000 ML IV SCH (08:38)
--- NOTE | 2024-08-16 09:59 | PCM.PROG ---
Progress Note Progress Note for Day of Date of Exam: 08/16/24 Subjective Subjective: The patient is alert and awake this point. She has no new complaints or problems. Her daughter is concerned that she may have had a CVA recently because she was showing symptoms of expressive aphasia. After speaking with the patient and examined her this morning she does not have any ptosis of her eyelids are drooping of the corner of her mouth. When she protrudes her tongue there is no tongue deviation to the left or right. She has symmetric strength in her upper and lower extremities bilaterally with no loss of sensation either. She answers questions appropriately and is not showing any signs of confusion or altered mental status at this time. Her urine culture is still pending as well as the Gram stain. She is currently receiving IV antibiotics and IV hydration. Her hydration status is improved and she is back to her normal baseline regarding her BUN/creatinine levels. We will plan on keeping her at least another 24 hours until we can identify the bacteria causing her urinary tract infection so we can get her on the correct antibiotics and we will plan on discharging her home tomorrow. Past Medical Family Social History Allergies: Allergies fenoprofen [Nalfon] Allergy (Unknown, Verified 04/05/24 11:08) Hives Reason: Drug allergy latex Allergy (Verified 08/14/24 23:40) Review of Systems ROS: No change since H&P Vital Signs and I&O's Vital Signs: Vital Signs Temperature 98.5 F Pulse Rate [Right Brachial] 69 Respiratory Rate 20 Respiratory Rate 18 Respiratory Rate 17 Blood Pressure [Right Arm] 101/49 O2 Sat by Pulse Oximetry 96 Intake and Output: Intake & Output 08/13/24 08/14/24 08/15/24 08/16/24 12:59 12:59 11:59 11:59 Intake Total 3653 / 3653 Balance 3653 / 3653 Physical Exam Oriented: Normal Eyes: Normal Nose: Normal Throat: Dry Respiratory: Normal Cardiovascular: Edema Auscultation: Bowel Sounds: Normal Tenderness: Normal Skin: Normal Musculoskeletal: Leg and Motor Deficit Psychiatric: Normal Mood Description: Calm Affect: Normal Speech Pattern: Clear and Appropriate Laboratory and Diagnostics 08/16/24 05:04 08/16/24 05:04 Labs: Laboratory WBC 6.1 X10^3/uL (3.6-10.0) 08/16/24 05:04 RBC 3.01 X10^6/uL (3.5-5.4) L 08/16/24 05:04 Hgb 9.3 g/dL (12.0-16.0) L 08/16/24 05:04 Hct 27.4 % (36.0-47.0) L 08/16/24 05:04 MCV 90.8 fL (80.0-100.0) 08/16/24 05:04 MCH 31.0 pg (27.0-34.0) 08/16/24 05:04 MCHC 34.1 g/dL (33.0-35.0) 08/16/24 05:04 RDW 13.8 % (11.6-16.5) 08/16/24 05:04 Plt Count 175 X10^3/uL (150.0-450.0) 08/16/24 05:04 MPV 8.4 fL (7.4-11.0) 08/16/24 05:04 Neut % (Auto) 61.1 % (42.0-75.0) 08/16/24 05:04 Lymph % (Auto) 26.8 % (21.0-51.0) 08/16/24 05:04 [place] % (Auto) 8.9 % (0.0-13.0) 08/16/24 05:04 Eos % (Auto) 2.4 % (0.9-2.9) 08/16/24 05:04 Baso % (Auto) 0.8 % (0.2-1.0) 08/16/24 05:04 Neut # (Auto) 3.7 x10^3/uL (2.2-4.8) 08/16/24 05:04 Lymph # (Auto) 1.6 X10^3/uL (1.3-2.9) 08/16/24 05:04 [place] # (Auto) 0.5 x10^3/uL (0.3-0.8) 08/16/24 05:04 Eos # (Auto) 0.1 x10^3/uL (0.0-0.2) 08/16/24 05:04 Baso # (Auto) 0.0 X10^3/uL (0.0-0.1) 08/16/24 05:04 Absolute Nucleated RBC 0.0 /100WBC 08/16/24 05:04 Sodium 147 mmol/L (136-145) H 08/16/24 05:04 Corrected Sodium TNP 08/16/24 05:04 Potassium 3.7 mmol/L (3.5-5.1) 08/16/24 05:04 Chloride 112 mmol/L (98-107) H 08/16/24 05:04 Carbon Dioxide 27.9 mmol/L (21-32) 08/16/24 05:04 BUN 36 mg/dL (7-18) H 08/16/24 05:04 Creatinine 1.32 mg/dL (0.55-1.02) H 08/16/24 05:04 Est GFR (MDRD) Af Amer 49 (>60) L 08/16/24 05:04 Est GFR (MDRD) Non-Af 41 (>60) L 08/16/24 05:04 Glucose 86 mg/dL (65-99) 08/16/24 05:04 Calcium 8.3 mg/dL (8.5-10.1) L 08/16/24 05:04 Corrected Calcium 9.3 mg/dL (8.5-10.1) 08/16/24 05:04 Magnesium 1.9 mg/dL (2.0-2.9) L 08/16/24 05:04 Total Bilirubin 0.20 mg/dL (0.2-1.0) 08/16/24 05:04 AST 19 Units/L (15-37) 08/16/24 05:04 ALT 23 Units/L (12-78) 08/16/24 05:04 Alkaline Phosphatase 67 Units/L (46-116) 08/16/24 05:04 Creatine Kinase 72 Units/L (26-192) 08/14/24 23:45 Troponin I High Sens 35.8 ng/L (4.0-60.0) 08/14/24 23:45 B-Natriuretic Peptide 51.8 pg/mL (0-79) 08/14/24 23:45 Total Protein 5.5 g/dL (6.4-8.2) L 08/16/24 05:04 Albumin 2.8 g/dL (3.4-5.0) L 08/16/24 05:04 Globulin 2.7 g/dL (2.5-4.5) 08/16/24 05:04 Albumin/Globulin Ratio 1.0 Ratio (1.1-2.1) L 08/16/24 05:04 Specimen Type Catherized urine 08/15/24 01:21 EST Urine Color Yellow (YELLOW) 08/15/24 01:21 EST Urine Appearance Clear (CLEAR) 08/15/24 01:21 EST Urine pH 5.0 (5.0 - 8.0) 08/15/24 01:21 EST Ur Specific [place] 1.020 (1.000-1.030) 08/15/24 01:21 EST Urine Protein Negative (NEGATIVE) 08/15/24 01:21 EST Urine Glucose (UA) Negative (NEGATIVE) 08/15/24 01:21 EST Urine Ketones Negative (NEGATIVE) 08/15/24 01:21 EST Urine Blood Negative (NEGATIVE) 08/15/24 01:21 EST Urine Nitrite Negative (NEGATIVE) 08/15/24 01:21 EST Urine Bilirubin Negative (NEGATIVE) 08/15/24 01:21 EST Urine Urobilinogen Normal (NORMAL) 08/15/24 01:21 EST Ur Leukocyte Esterase 1+ (NEGATIVE) 08/15/24 01:21 EST Urine RBC 3-5 /HPF (0-3) A 08/15/24 01:21 EST Urine WBC 5-10 /HPF (0-5) A 08/15/24 01:21 EST Ur Squamous Epith Cells Negative /HPF (NEGATIVE) 08/15/24 01:21 EST Ur Transition Epith Cell Few /HPF (NEGATIVE) 08/15/24 01:21 EST Amorphous Sediment 2+ /HPF (NEGATIVE) 08/15/24 01:21 EST Urine Bacteria 1+ /HPF (NEGATIVE) 08/15/24 01:21 EST Hyaline Casts Few /LPF (NEGATIVE) 08/15/24 01:21 EST Ur Culture Indicated? No/not indicated 08/15/24 01:21 EST Radiology Reviewed: Yes Plan (1) Acute dehydration: Status: Resolved Plan: Decrease IV fluid to 20 mL/h-KVO. (2) Generalized weakness: Status: Chronic Plan: The patient is back at her normal baseline regarding her generalized weakness. (3) AMS (altered mental status): Status: Resolved Qualifiers: Altered mental status type: transient alteration of awareness Qualified Code(s): R40.4 - Transient alteration of awareness Plan: Monitor the patient for another 24 hours and plan on discharging her home tomorrow once we have identified the cause of her urinary tract infection. (4) UTI (urinary tract infection): Status: Acute Qualifiers: Hematuria presence: with hematuria Urinary tract infection type: site unspecified Qualified Code(s): N39.0 - Urinary tract infection, site not specified; R31.9 - Hematuria, unspecified Plan: Follow-up urine culture and adjust antibiotics accordingly. Continue IV antibiotic therapy at this time. (5) Neuropathic pain of both legs: Status: Acute Plan: Pain control. (6) Parkinsonism: Status: Acute Qualifiers: Parkinsonism type: unspecified Qualified Code(s): G20.C - Parkinsonism, unspecified Plan: Continue ropinirole. (7) Hypertension: Status: Acute Qualifiers: Hypertension type: primary hypertension Qualified Code(s): I10 - Essential (primary) hypertension Plan: Monitor daily blood pressures and adjust antihypertensives if needed.
[2024-08-16 17:16] VITALS: BMI 33.9
[2024-08-17 05:43] LABS: BASOPHILS % (AUTO) 0.5 % (0.2-1.0); EOSINOPHILS # (AUTO) 0.2 x10^3/uL (0.0-0.2); EOSINOPHILS % (AUTO) 3.3 % (0.9-2.9); HEMATOCRIT 27.6 % (36.0-47.0); HEMOGLOBIN 9.5 g/dL (12.0-16.0); LYMPHOCYTES # (AUTO) 1.6 X10^3/uL (1.3-2.9); LYMPHOCYTES % (AUTO) 28.2 % (21.0-51.0); MEAN CORPUSCULAR HGB CONC 34.6 g/dL (33.0-35.0); MEAN CORPUSCULAR VOLUME 89.6 fL (80.0-100.0); MEAN PLATELET VOLUME 7.9 fL (7.4-11.0); MONOCYTES # (AUTO) 0.5 x10^3/uL (0.3-0.8); MONOCYTES % (AUTO) 8.3 % (0.0-13.0); NEUTROPHILS # (AUTO) 3.4 x10^3/uL (2.2-4.8); NEUTROPHILS % (AUTO) 59.7 % (42.0-75.0); PLATELET COUNT 155 X10^3/uL (150.0-450.0); RED BLOOD COUNT 3.08 X10^6/uL (3.5-5.4); RED CELL DISTRIBUTION WIDTH 14.3 % (11.6-16.5); WHITE BLOOD COUNT 5.7 X10^3/uL (3.6-10.0)
[2024-08-17 05:49] LABS: BLOOD UREA NITROGEN 29 mg/dL (7-18); CALCIUM 8.5 mg/dL (8.5-10.1); CARBON DIOXIDE 28.6 mmol/L (21-32); CHLORIDE 110 mmol/L (98-107); CREATININE 1.21 mg/dL (0.55-1.02); GLUCOSE 81 mg/dL (65-99); SODIUM 147 mmol/L (136-145); eGFR NON BLACK RACES 45 (>60)
[2024-08-17 06:08] LABS: ALANINE AMINOTRANSFERASE 23 Units/L (12-78); ALBUMIN 2.8 g/dL (3.4-5.0); ALKALINE PHOSPHATASE 62 Units/L (46-116); ASPARTATE AMINO TRANSFERASE 20 Units/L (15-37); COR CA(FOR HYPOALB) 9.5 mg/dL (8.5-10.1); MAGNESIUM 1.9 mg/dL (2.0-2.9); TOTAL PROTEIN 5.6 g/dL (6.4-8.2)
[2024-08-17] MEDS ORDERED: CONSULT PHARMACY - POTASSIUM & MAGNESIUM XX SCH (07:00)
[2024-08-17] MEDS ORDERED: ZOLOFT ONE (08:25)
[2024-08-17] MEDS: MAG-OX TAB PO SCH (08:34)
[2024-08-17] MEDS: K-DUR TAB 20 MEQ PO SCH (11:04)
--- NOTE | 2024-08-17 16:28 | PCM.PROG ---
Progress Note Progress Note for Day of Date of Exam: 08/17/24 Subjective Subjective: The patient is doing well this morning she states. She did not have any significant problems since yesterday morning and none last night. Her pain is controlled and she is sleeping well at this time. She feels back to normal but states that she is still weak and her family reports that they are having to hold her a lot at home and they would like she would benefit from some inpatient physical therapy. I told him I agree with him and I think that would do a lot of good and help minimize the risk of her falling in the future. The oil field caser has already started working on placement for her. Yesterday we changed her to a regular admission so we will leave this coming and we can discharge her to [facility] for inpatient rehab. In the meantime we will continue her IV antibiotics for her UTI. Urine culture and sensitivity report is not back at this time but we will continue to look for that and adjust antibiotics if needed once the report comes back. Past Medical Family Social History Allergies: Allergies fenoprofen [Nalfon] Allergy (Unknown, Verified 04/05/24 11:08) Hives Reason: Drug allergy latex Allergy (Verified 08/14/24 23:40) Review of Systems ROS: No change since H&P Vital Signs and I&O's Vital Signs: Vital Signs Temperature 98.6 F Pulse Rate [Right Brachial] 64 Respiratory Rate 19 Respiratory Rate 20 Respiratory Rate 18 Blood Pressure [Right Arm] 137/65 O2 Sat by Pulse Oximetry 96 Intake and Output: Intake & Output 08/15/24 08/16/24 08/17/24 08/18/24 11:59 11:59 11:59 11:59 Intake Total 2543 / 3 1751 / 1751 179 / 179 Balance 3 / 3652 1751 / 1751 179 / 179 Physical Exam Oriented: Normal Eyes: Normal Nose: Normal Throat: Dry Respiratory: Normal Cardiovascular: Edema Auscultation: Bowel Sounds: Normal Tenderness: Normal Skin: Normal Musculoskeletal: Leg and Motor Deficit Psychiatric: Normal Mood Description: Calm Affect: Normal Speech Pattern: Clear and Appropriate Laboratory and Diagnostics 08/17/24 05:27 08/17/24 05:27 Labs: 08/15/24 01:21 EST Urine,Clean Catch Urine Culture - Final Laboratory WBC 5.7 X10^3/uL (3.6-10.0) 08/17/24 05:27 RBC 3.08 X10^6/uL (3.5-5.4) L 08/17/24 05:27 Hgb 9.5 g/dL (12.0-16.0) L 08/17/24 05:27 Hct 27.6 % (36.0-47.0) L 08/17/24 05:27 MCV 89.6 fL (80.0-100.0) 08/17/24 05:27 MCH 31.0 pg (27.0-34.0) 08/17/24 05:27 MCHC 34.6 g/dL (33.0-35.0) 08/17/24 05:27 RDW 14.3 % (11.6-16.5) 08/17/24 05:27 Plt Count 155 X10^3/uL (150.0-450.0) 08/17/24 05:27 MPV 7.9 fL (7.4-11.0) 08/17/24 05:27 Neut % (Auto) 59.7 % (42.0-75.0) 08/17/24 05:27 Lymph % (Auto) 28.2 % (21.0-51.0) 08/17/24 05:27 [place] % (Auto) 8.3 % (0.0-13.0) 08/17/24 05:27 Eos % (Auto) 3.3 % (0.9-2.9) H 08/17/24 05:27 Baso % (Auto) 0.5 % (0.2-1.0) 08/17/24 05:27 Neut # (Auto) 3.4 x10^3/uL (2.2-4.8) 08/17/24 05:27 Lymph # (Auto) 1.6 X10^3/uL (1.3-2.9) 08/17/24 05:27 [place] # (Auto) 0.5 x10^3/uL (0.3-0.8) 08/17/24 05:27 Eos # (Auto) 0.2 x10^3/uL (0.0-0.2) 08/17/24 05:27 Baso # (Auto) 0.0 X10^3/uL (0.0-0.1) 08/17/24 05:27 Absolute Nucleated RBC 0.0 /100WBC 08/17/24 05:27 Sodium 147 mmol/L (136-145) H 08/17/24 05:27 Corrected Sodium TNP 08/17/24 05:27 Potassium 3.0 mmol/L (3.5-5.1) L 08/17/24 05:27 Chloride 110 mmol/L (98-107) H 08/17/24 05:27 Carbon Dioxide 28.6 mmol/L (21-32) 08/17/24 05:27 BUN 29 mg/dL (7-18) H 08/17/24 05:27 Creatinine 1.21 mg/dL (0.55-1.02) H 08/17/24 05:27 Est GFR (MDRD) Af Amer 54 (>60) L 08/17/24 05:27 Est GFR (MDRD) Non-Af 45 (>60) L 08/17/24 05:27 Glucose 81 mg/dL (65-99) 08/17/24 05:27 Calcium 8.5 mg/dL (8.5-10.1) 08/17/24 05:27 Corrected Calcium 9.5 mg/dL (8.5-10.1) 08/17/24 05:27 Magnesium 1.9 mg/dL (2.0-2.9) L 08/17/24 05:27 Total Bilirubin 0.20 mg/dL (0.2-1.0) 08/17/24 05:27 AST 20 Units/L (15-37) 08/17/24 05:27 ALT 23 Units/L (12-78) 08/17/24 05:27 Alkaline Phosphatase 62 Units/L (46-116) 08/17/24 05:27 Creatine Kinase 72 Units/L (26-192) 08/14/24 23:45 Troponin I High Sens 35.8 ng/L (4.0-60.0) 08/14/24 23:45 B-Natriuretic Peptide 51.8 pg/mL (0-79) 08/14/24 23:45 Total Protein 5.6 g/dL (6.4-8.2) L 08/17/24 05:27 Albumin 2.8 g/dL (3.4-5.0) L 08/17/24 05:27 Globulin 2.8 g/dL (2.5-4.5) 08/17/24 05:27 Albumin/Globulin Ratio 1.0 Ratio (1.1-2.1) L 08/17/24 05:27 Specimen Type Catherized urine 08/15/24 01:21 EST Urine Color Yellow (YELLOW) 08/15/24 01:21 EST Urine Appearance Clear (CLEAR) 08/15/24 01:21 EST Urine pH 5.0 (5.0 - 8.0) 08/15/24 01:21 EST Ur Specific [place] 1.020 (1.000-1.030) 08/15/24 01:21 EST Urine Protein Negative (NEGATIVE) 08/15/24 01:21 EST Urine Glucose (UA) Negative (NEGATIVE) 08/15/24 01:21 EST Urine Ketones Negative (NEGATIVE) 08/15/24 01:21 EST Urine Blood Negative (NEGATIVE) 08/15/24 01: EST Urine Nitrite Negative (NEGATIVE) 08/15/24 01:21 EST Urine Bilirubin Negative (NEGATIVE) 08/15/24 01:21 EST Urine Urobilinogen Normal (NORMAL) 08/15/24 01:21 EST Ur Leukocyte Esterase 1+ (NEGATIVE) 08/15/24 01:21 EST Urine RBC 3-5 /HPF (0-3) A 08/15/24 01:21 EST Urine WBC 5-10 /HPF (0-5) A 08/15/24 01:21 EST Ur Squamous Epith Cells Negative /HPF (NEGATIVE) 08/15/24 01:21 EST Ur Transition Epith Cell Few /HPF (NEGATIVE) 08/15/24 01:21 EST Amorphous Sediment 2+ /HPF (NEGATIVE) 08/15/24 01:21 EST Urine Bacteria 1+ /HPF (NEGATIVE) 08/15/24 01:21 EST Hyaline Casts Few /LPF (NEGATIVE) 08/15/24 01:21 EST Ur Culture Indicated? No/not indicated 08/15/24 01:21 EST Plan (1) Acute dehydration: Status: Resolved Plan: Decrease IV fluid to 20 mL/h-KVO. (2) Generalized weakness: Status: Chronic Plan: The patient is back at her normal baseline regarding her generalized weakness. We will start working on getting the patient admitted to [facility] for inpatient rehabilitation once he is stronger to get out of the hospital. (3) AMS (altered mental status): Status: Resolved Qualifiers: Altered mental status type: transient alteration of awareness Qualified Code(s): R40.4 - Transient alteration of awareness Plan: Monitor the patient for another 24 hours and plan on discharging her home tomorrow once we have identified the cause of her urinary tract infection. (4) UTI (urinary tract infection): Status: Acute Qualifiers: Hematuria presence: with hematuria Urinary tract infection type: site unspecified Qualified Code(s): N39.0 - Urinary tract infection, site not specified; R31.9 - Hematuria, unspecified Plan: Follow-up urine culture and adjust antibiotics accordingly. Continue IV antibiotic therapy at this time. (5) Neuropathic pain of both legs: Status: Acute Plan: Pain control. (6) Parkinsonism: Status: Acute Qualifiers: Parkinsonism type: unspecified Qualified Code(s): G20.C - Parkinsonism, unspecified Plan: Continue ropinirole. (7) Hypertension: Status: Acute Qualifiers: Hypertension type: primary hypertension Qualified Code(s): I10 - Essential (primary) hypertension Plan: Monitor daily blood pressures and adjust antihypertensives if needed.
[2024-08-17] MEDS: NORCO 10/325 TAB PO PRN (16:30)
[2024-08-18 05:43] LABS: BASOPHILS % (AUTO) 0.8 % (0.2-1.0); EOSINOPHILS # (AUTO) 0.2 x10^3/uL (0.0-0.2); EOSINOPHILS % (AUTO) 3.2 % (0.9-2.9); HEMATOCRIT 28.6 % (36.0-47.0); HEMOGLOBIN 9.8 g/dL (12.0-16.0); LYMPHOCYTES # (AUTO) 1.7 X10^3/uL (1.3-2.9); LYMPHOCYTES % (AUTO) 30.8 % (21.0-51.0); MEAN CORPUSCULAR HEMOGLOBIN 30.9 pg (27.0-34.0); MEAN CORPUSCULAR HGB CONC 34.3 g/dL (33.0-35.0); MEAN PLATELET VOLUME 8.3 fL (7.4-11.0); MONOCYTES # (AUTO) 0.5 x10^3/uL (0.3-0.8); MONOCYTES % (AUTO) 9.8 % (0.0-13.0); NEUTROPHILS # (AUTO) 3.1 x10^3/uL (2.2-4.8); NEUTROPHILS % (AUTO) 55.4 % (42.0-75.0); PLATELET COUNT 162 X10^3/uL (150.0-450.0); RED BLOOD COUNT 3.17 X10^6/uL (3.5-5.4); RED CELL DISTRIBUTION WIDTH 13.7 % (11.6-16.5); WHITE BLOOD COUNT 5.5 X10^3/uL (3.6-10.0)
[2024-08-18 05:48] LABS: ALANINE AMINOTRANSFERASE 20 Units/L (12-78); ALBUMIN 2.9 g/dL (3.4-5.0); ALKALINE PHOSPHATASE 67 Units/L (46-116); ASPARTATE AMINO TRANSFERASE 17 Units/L (15-37); BLOOD UREA NITROGEN 30 mg/dL (7-18); CALCIUM 8.5 mg/dL (8.5-10.1); CARBON DIOXIDE 31.9 mmol/L (21-32); CHLORIDE 109 mmol/L (98-107); COR CA(FOR HYPOALB) 9.4 mg/dL (8.5-10.1); CREATININE 1.21 mg/dL (0.55-1.02); GLUCOSE 105 mg/dL (65-99); MAGNESIUM 1.8 mg/dL (2.0-2.9); POTASSIUM 3.4 mmol/L (3.5-5.1); SODIUM 147 mmol/L (136-145); TOTAL PROTEIN 5.8 g/dL (6.4-8.2); eGFR NON BLACK RACES 45 (>60)
[2024-08-18] MEDS ORDERED: CONSULT PHARMACY - POTASSIUM & MAGNESIUM XX SCH (07:00)
[2024-08-18] MEDS ORDERED: ZOLOFT ONE (10:25)
[2024-08-18] MEDS: KLOR-CON PO SCH (10:37)
[2024-08-18] MEDS: MAG-OX TAB PO SCH (10:37)
--- NOTE | 2024-08-18 13:48 | EKG ---
Test Reason : Chest Pain Blood Pressure : */* mmHG Vent. Rate : 64 BPM Atrial Rate : 64 BPM P-R Int : 188 ms QRS Dur : 114 ms QT Int : 416 ms P-R-T Axes : 25 -46 63 degrees QTc Int : 429 ms Normal sinus rhythm Poor R-wave progression Left axis deviation Left ventricular hypertrophy with repolarization abnormality ( R in aVL , Pascual product ) Abnormal ECG When compared with ECG of 15-AUG-2024 00:14, T wave amplitude has decreased in Anterior leads Confirmed by Zachery Pulido MD ([id number]) on 08/18/2024 2:55:25 PM Referred By: Confirmed By: Zachery Pulido MD
--- NOTE | 2024-08-18 19:43 | EKG ---
Test Reason : Chest Pain Blood Pressure : */* mmHG Vent. Rate : 59 BPM Atrial Rate : 59 BPM P-R Int : 184 ms QRS Dur : 116 ms QT Int : 450 ms P-R-T Axes : 20 -39 66 degrees QTc Int : 445 ms Sinus bradycardia Left axis deviation Poor R-wave progression Left ventricular hypertrophy with QRS widening ( R in aVL , Pascual product ) Abnormal ECG When compared with ECG of 18-AUG-2024 13:32, No significant change was found Confirmed by Zachery Pulido MD ([id number]) on 08/19/2024 7:34:25 AM Referred By: Confirmed By: Zachery Pulido MD
--- NOTE | 2024-08-19 01:47 | EKG ---
Test Reason : Chest Pain Blood Pressure : */* mmHG Vent. Rate : 58 BPM Atrial Rate : 58 BPM P-R Int : 196 ms QRS Dur : 118 ms QT Int : 446 ms P-R-T Axes : 32 -38 42 degrees QTc Int : 437 ms Sinus bradycardia Poor R-wave progression Left axis deviation Left ventricular hypertrophy with QRS widening ( R in aVL , [place] product ) Abnormal ECG When compared with ECG of 18-AUG-2024 19:27, (Unconfirmed) No significant change was found Confirmed by Zachery Pulido MD ([id number]) on 08/19/2024 7:34:06 AM Referred By: Confirmed By: Zachery Pulido MD
[2024-08-19 05:51] LABS: BASOPHILS % (AUTO) 0.9 % (0.2-1.0); EOSINOPHILS # (AUTO) 0.2 x10^3/uL (0.0-0.2); EOSINOPHILS % (AUTO) 3.6 % (0.9-2.9); HEMATOCRIT 27.3 % (36.0-47.0); HEMOGLOBIN 9.5 g/dL (12.0-16.0); LYMPHOCYTES # (AUTO) 1.7 X10^3/uL (1.3-2.9); LYMPHOCYTES % (AUTO) 33.3 % (21.0-51.0); MEAN CORPUSCULAR HEMOGLOBIN 31.3 pg (27.0-34.0); MEAN CORPUSCULAR HGB CONC 34.6 g/dL (33.0-35.0); MEAN CORPUSCULAR VOLUME 90.4 fL (80.0-100.0); MEAN PLATELET VOLUME 8.4 fL (7.4-11.0); MONOCYTES # (AUTO) 0.6 x10^3/uL (0.3-0.8); MONOCYTES % (AUTO) 11.1 % (0.0-13.0); NEUTROPHILS # (AUTO) 2.6 x10^3/uL (2.2-4.8); NEUTROPHILS % (AUTO) 51.1 % (42.0-75.0); PLATELET COUNT 166 X10^3/uL (150.0-450.0); RED BLOOD COUNT 3.02 X10^6/uL (3.5-5.4); RED CELL DISTRIBUTION WIDTH 14.1 % (11.6-16.5); WHITE BLOOD COUNT 5.1 X10^3/uL (3.6-10.0)
[2024-08-19 06:04] LABS: ALANINE AMINOTRANSFERASE 19 Units/L (12-78); ALBUMIN 2.9 g/dL (3.4-5.0); ALKALINE PHOSPHATASE 63 Units/L (46-116); ASPARTATE AMINO TRANSFERASE 16 Units/L (15-37); BLOOD UREA NITROGEN 37 mg/dL (7-18); CALCIUM 8.9 mg/dL (8.5-10.1); CARBON DIOXIDE 33.7 mmol/L (21-32); CHLORIDE 108 mmol/L (98-107); COR CA(FOR HYPOALB) 9.8 mg/dL (8.5-10.1); CREATININE 1.26 mg/dL (0.55-1.02); GLUCOSE 78 mg/dL (65-99); POTASSIUM 3.8 mmol/L (3.5-5.1); SODIUM 146 mmol/L (136-145); TOTAL PROTEIN 5.7 g/dL (6.4-8.2); eGFR NON BLACK RACES 43 (>60)
[2024-08-19 08:22] VITALS: PULSE 60
[2024-08-19] MEDS ORDERED: ZOLOFT ONE (08:30)
--- NOTE | 2024-08-19 09:20 | PCM.PROG ---
Progress Note Progress Note for Day of Date of Exam: 08/18/24 Subjective Subjective: Megan Vann is a 75-year-old woman who is currently under care for an infection and is awaiting transfer to a retirement for rehabilitation. She is not exhibiting any significant issues but mentioned that she slept well last night and has a good appetite. There have been no reported side effects from medications or significant changes in her condition. She is on two boosts for nutrition, specifically a chocolate flavor. No recent lifestyle changes or exposures were reported. Continue current treatment at this time. Past Medical Family Social History Allergies: Allergies fenoprofen [Nalfon] Allergy (Unknown, Verified 04/05/24 11:08) Hives Reason: Drug allergy latex Allergy (Verified 08/14/24 23:40) Review of Systems ROS: No change since H&P Vital Signs and I&O's Vital Signs: Vital Signs Temperature 98.3 F Temperature 98.3 F Pulse Rate [Right Brachial] 60 Pulse Rate [Right Brachial] 63 Respiratory Rate 20 Respiratory Rate 19 Respiratory Rate 18 Blood Pressure [Right Arm] 130/60 Blood Pressure [Right Arm] 102/51 O2 Sat by Pulse Oximetry 95 O2 Sat by Pulse Oximetry 95 Intake and Output: Intake & Output 08/16/24 08/17/24 08/18/24 08/19/24 11:59 11:59 11:59 11:59 Intake Total 3653 / 3 1751 / 1751 1857 / 185 1872 / 1872 Balance 3 / 3 1751 / 1751 1857 / 185 1872 / 1872 Physical Exam Oriented: Normal Eyes: Normal Nose: Normal Throat: Dry Respiratory: Normal Cardiovascular: Edema Auscultation: Bowel Sounds: Normal Tenderness: Normal Skin: Normal Musculoskeletal: Leg and Motor Deficit Psychiatric: Normal Mood Description: Calm Affect: Normal Speech Pattern: Clear and Appropriate Laboratory and Diagnostics 08/19/24 04:58 08/19/24 04:58 Labs: 08/15/24 01:21 EST Urine,Clean Catch Urine Culture - Final Laboratory WBC 5.1 X10^3/uL (3.6-10.0) 08/19/24 04:58 RBC 3.02 X10^6/uL (3.5-5.4) L 08/19/24 04:58 Hgb 9.5 g/dL (12.0-16.0) L 08/19/24 04:58 Hct 27.3 % (36.0-47.0) L 08/19/24 04:58 MCV 90.4 fL (80.0-100.0) 08/19/24 04:58 MCH 31.3 pg (27.0-34.0) 08/19/24 04:58 MCHC 34.6 g/dL (33.0-35.0) 08/19/24 04:58 RDW 14.1 % (11.6-16.5) 08/19/24 04:58 Plt Count 166 X10^3/uL (150.0-450.0) 08/19/24 04:58 MPV 8.4 fL (7.4-11.0) 08/19/24 04:58 Neut % (Auto) 51.1 % (42.0-75.0) 08/19/24 04:58 Lymph % (Auto) 33.3 % (21.0-51.0) 08/19/24 04:58 [place] % (Auto) 11.1 % (0.0-13.0) 08/19/24 04:58 Eos % (Auto) 3.6 % (0.9-2.9) H 08/19/24 04:58 Baso % (Auto) 0.9 % (0.2-1.0) 08/19/24 04:58 Neut # (Auto) 2.6 x10^3/uL (2.2-4.8) 08/19/24 04:58 Lymph # (Auto) 1.7 X10^3/uL (1.3-2.9) 08/19/24 04:58 [place] # (Auto) 0.6 x10^3/uL (0.3-0.8) 08/19/24 04:58 Eos # (Auto) 0.2 x10^3/uL (0.0-0.2) 08/19/24 04:58 Baso # (Auto) 0.0 X10^3/uL (0.0-0.1) 08/19/24 04:58 Absolute Nucleated RBC 0.1 /100WBC 08/19/24 04:58 Sodium 146 mmol/L (136-145) H 08/19/24 04:58 Corrected Sodium TNP 08/19/24 04:58 Potassium 3.8 mmol/L (3.5-5.1) 08/19/24 04:58 Chloride 108 mmol/L (98-107) H 08/19/24 04:58 Carbon Dioxide 33.7 mmol/L (21-32) H 08/19/24 04:58 BUN 37 mg/dL (7-18) H 08/19/24 04:58 Creatinine 1.26 mg/dL (0.55-1.02) H 08/19/24 04:58 Est GFR (MDRD) Af Amer 52 (>60) L 08/19/24 04:58 Est GFR (MDRD) Non-Af 43 (>60) L 08/19/24 04:58 Glucose 78 mg/dL (65-99) 08/19/24 04:58 Calcium 8.9 mg/dL (8.5-10.1) 08/19/24 04:58 Corrected Calcium 9.8 mg/dL (8.5-10.1) 08/19/24 04:58 Magnesium 2.0 mg/dL (2.0-2.9) 08/19/24 04:58 Total Bilirubin 0.20 mg/dL (0.2-1.0) 08/19/24 04:58 AST 16 Units/L (15-37) 08/19/24 04:58 ALT 19 Units/L (12-78) 08/19/24 04:58 Alkaline Phosphatase 63 Units/L (46-116) 08/19/24 04:58 Creatine Kinase 72 Units/L (26-192) 08/14/24 23:45 Troponin I High Sens 37.5 ng/L (4.0-60.0) 08/19/24 01:49 B-Natriuretic Peptide 51.8 pg/mL (0-79) 08/14/24 23:45 Total Protein 5.7 g/dL (6.4-8.2) L 08/19/24 04:58 Albumin 2.9 g/dL (3.4-5.0) L 08/19/24 04:58 Globulin 2.8 g/dL (2.5-4.5) 08/19/24 04:58 Albumin/Globulin Ratio 1.0 Ratio (1.1-2.1) L 08/19/24 04:58 Specimen Type Catherized urine 08/15/24 01:21 EST Urine Color Yellow (YELLOW) 08/15/24 01:21 EST Urine Appearance Clear (CLEAR) 08/15/24 01:21 EST Urine pH 5.0 (5.0 - 8.0) 08/15/24 01:21 EST Ur Specific [place] 1.020 (1.000-1.030) 08/15/24 01:21 EST Urine Protein Negative (NEGATIVE) 08/15/24 01:21 EST Urine Glucose (UA) Negative (NEGATIVE) 08/15/24 01:21 EST Urine Ketones Negative (NEGATIVE) 08/15/24 01:21 EST Urine Blood Negative (NEGATIVE) 08/15/24 01:21 EST Urine Nitrite Negative (NEGATIVE) 08/15/24 01:21 EST Urine Bilirubin Negative (NEGATIVE) 08/15/24 01:21 EST Urine Urobilinogen Normal (NORMAL) 08/15/24 01:21 EST Ur Leukocyte Esterase 1+ (NEGATIVE) 08/15/24 01:21 EST Urine RBC 3-5 /HPF (0-3) A 08/15/24 01:21 EST Urine WBC 5-10 /HPF (0-5) A 08/15/24 01:21 EST Ur Squamous Epith Cells Negative /HPF (NEGATIVE) 08/15/24 01:21 EST Ur Transition Epith Cell Few /HPF (NEGATIVE) 08/15/24 01:21 EST Amorphous Sediment 2+ /HPF (NEGATIVE) 08/15/24 01:21 EST Urine Bacteria 1+ /HPF (NEGATIVE) 08/15/24 01:21 EST Hyaline Casts Few /LPF (NEGATIVE) 08/15/24 01:21 EST Ur Culture Indicated? No/not indicated 08/15/24 01:21 EST Plan (1) Acute dehydration: Status: Resolved Plan: Decrease IV fluid to 20 mL/h-KVO. (2) Generalized weakness: Status: Chronic Plan: The patient is back at her normal baseline regarding her generalized weakness. We will start working on getting the patient admitted to [facility] for inpatient rehabilitation once he is stronger to get out of the hospital. (3) AMS (altered mental status): Status: Resolved Qualifiers: Altered mental status type: transient alteration of awareness Qualified Code(s): R40.4 - Transient alteration of awareness Plan: Monitor the patient for another 24 hours and plan on discharging her home tomorrow once we have identified the cause of her urinary tract infection. (4) UTI (urinary tract infection): Status: Acute Qualifiers: Hematuria presence: with hematuria Urinary tract infection type: site unspecified Qualified Code(s): N39.0 - Urinary tract infection, site not specified; R31.9 - Hematuria, unspecified Plan: Follow-up urine culture and adjust antibiotics accordingly. C ontinue IV antibiotic therapy at this time. (5) Neuropathic pain of both legs: Status: Acute Plan: Pain control. (6) Parkinsonism: Status: Acute Qualifiers: Parkinsonism type: unspecified Qualified Code(s): G20.C - Parkinsonism, unspecified Plan: Continue ropinirole. (7) Hypertension: Status: Acute Qualifiers: Hypertension type: primary hypertension Qualified Code(s): I10 - Essential (primary) hypertension Plan: Monitor daily blood pressures and adjust antihypertensives if needed. (8) Chest pain: Status: Acute Qualifiers: Chest pain type: other chest pain Qualified Code(s): R07.89 - Other chest pain Narrative Support Text: The patient reported chest pain after lunch to the left anterior chest. We went ahead and ordered cardiac enzymes x 3 as well as serial EKGs. We also put in a consult for cardiology with Dr. Pulido. Follow-up with consult recommendations later.
[2024-08-19 13:13] VITALS: BP 96/46; RESP 19; TEMP 97.8; O2SAT 93
--- NOTE | 2024-08-19 13:31 | DR.CONSULT ---
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- had stents w/in a few years ago/has chf- on great meds to include plavix/bb/nitrate/entresto/statin/lasix /metolozone- very inactive with minimal walking- cant lie flat in bed due to sob/back issues/some edema- takes sl nitro once/week- in hosp and getting sent to rehab for streghthening- yesterday 5 min of cp- resolved itself- no ekgs changes/trops negative x3 Past Medical History Past Medical History: Anxiety, Arthritis, Depression, Dyslipidemia, GERD, Hypertension, Renal Disease and Sleep Apnea Additional Medical History: anemia Past Surgical History Surgical History: Appendectomy, Cholecystectomy, Hysterectomy and Other Family History Family Medical History: Diabetes Mellitus, Cancer, Coronary Artery Disease and Hypertension Social History Alcohol Use: None Drug Use: None Medications Home Medications: fenoprofen [Nalfon] Allergy (Unknown, Verified 04/05/24 11:08) Hives latex Allergy (Verified 08/14/24 23:40) CONTINUE taking the following medications isosorbide mononitrate 30 mg tablet,extended release 24 hr 30 mg PO QDAY 08/14/24 [History] morphine 30 mg tablet,extended release (MS Contin) 30 mg PO BID 08/14/24 [History] sacubitril 24 mg-valsartan 26 mg tablet (Entresto) 1 tab PO BID 08/14/24 [History] cetirizine 10 mg tablet (Zyrtec) 10 mg PO QDAY for allergies 08/15/24 [History] ferrous sulfate 325 mg (65 mg iron) tablet (Iron (ferrous sulfate)) 325 mg PO QDAY 08/15/24 [History] bcizhhee-ydi-flibi2 250 mg-dha 90 mg-epa 160 ai-ldcg-cqxw-zeax capsule (Ocuvite Adult 50 Plus) 1 cap PO QDAY 08/15/24 [History] nitroglycerin 0.4 mg sublingual tablet (Nitrostat) 0.4 mg sublingual PRN PRN Chest pain 08/15/24 [History] sertraline 100 mg tablet (Zoloft) 200 mg PO QDAY 08/15/24 [History] tamsulosin 0.4 mg capsule (Flomax) 0.4 mg PO DAILY 08/15/24 [History] New Prescriptions hydrocodone 5 mg-acetaminophen 325 mg tablet 1 tab PO Q6H PRN #120 tabs 08/18/24 [Rx] morphine 30 mg tablet,extended release (MS Contin) 30 mg PO Q12H #60 tabs 08/18/24 [Rx] ketorolac 10 mg tablet 5 mg PO BID 3 days #3 tabs 08/19/24 [Rx] Physical Exam Vital Signs: Vital Signs Temperature 97.8 F Temperature 98.3 F Pulse Rate [Right Brachial] 60 Pulse Rate [Right Brachial] 60 Respiratory Rate 19 Respiratory Rate 20 Respiratory Rate 20 Respiratory Rate 19 Blood Pressure [Right Arm] 96/46 Blood Pressure [Right Arm] 130/60 O2 Sat by Pulse Oximetry 93 O2 Sat by Pulse Oximetry 95 alert ox3 3 cm jvd clear lungs timo iona mild edema ekg: SB prwp lvh cxr: NAD labs: hct 27 bun /cr 37/1.26 k 3.8 trop x3 negative, bnp 51 Plan (1) Generalized weakness: Status: Chronic (2) AMS (altered mental status): Status: Resolved Qualifiers: Altered mental status type: transient alteration of awareness Qualified Code(s): R40.4 - Transient alteration of awareness (3) UTI (urinary tract infection): Status: Acute Qualifiers: Hematuria presence: with hematuria Urinary tract infection type: site unspecified Qualified Code(s): N39.0 - Urinary tract infection, site not specified; R31.9 - Hematuria, unspecified (4) Parkinsonism: Status: Acute Qualifiers: Parkinsonism type: unspecified Qualified Code(s): G20.C - Parkinsonism, unspecified (5) Hypertension: Status: Acute Qualifiers: Hypertension type: primary hypertension Qualified Code(s): I10 - Essential (primary) hypertension (6) Chest pain: Status: Acute Qualifiers: Chest pain type: other chest pain Qualified Code(s): R07.89 - Other chest pain Narrative Support Text: no mi by ekg/trops- on great meds Plan: cont current meds (7) Edema: Status: None Narrative Support Text: good ef on echo,bnp normal/cxr clear-continue diuretics (8) SOB (shortness of breath): Status: Acute Narrative Support Text: suspect anemia/deconditioning playing large part- continue current meds
== END 2024-08-19 14:35 | DRG 690 ==
LOC: ER 23:21 → MED/SURG 23:21
PROVIDERS: ADMIT Internal Medicine; ATTEND Family Medicine
DX: G20.C Parkinsonism, unspecified; R53.1 Weakness; I12.9 Hypertensive chronic kidney disease with stage 1 through stage 4 chronic kidney disease, or unspecified chronic kidney disease; R60.0 Localized edema; R06.02 Shortness of breath; R26.89 Other abnormalities of gait and mobility; R31.9 Hematuria, unspecified; E87.5 Hyperkalemia; N18.9 Chronic kidney disease, unspecified; E78.5 Hyperlipidemia, unspecified; E86.0 Dehydration; R94.31 Abnormal electrocardiogram [ECG] [EKG]; R40.4 Transient alteration of awareness; G62.89 Other specified polyneuropathies; K21.9 Gastro-esophageal reflux disease without esophagitis; N39.0 Urinary tract infection, site not specified; E83.42 Hypomagnesemia; R07.89 Other chest pain

== ENCOUNTER 2024-10-18 09:47 | Observation (INO) ==
--- NOTE | 2024-10-18 10:09 | DR.GENAD ---
HPI Time Seen Time Seen by Provider: 10/18/24 10:07 PCP Primary Care Physician: viji Complaint/Symptoms Chief Complaint:: Patient brought over by [facility] staff via stretcher. senior care charge nurse called and stated patient just started having dark red blood in stool along with clots, but patient states upon arrival that this has been going on for a couple of weeks and she just keeps getting weaker and weaker. patient denies any abd pain but did state they had to give her something for her bowels friday but states she had a normal bowel movement friday. patient does state she started running a fever lastnight. COVID-19 Coronavirus risk:travel/contact w/high risk person: No Has patient experienced Coronavirus symptoms: Yes Coronavirus symptoms experienced: Fever Nurses notes reviewed Nurses Notes Review: Yes Source History Provided: Patient and Shelter Mode of Arrival Mode of Arrival: Stretcher Timing Onset of Chief Complaint: 10/05/24 PMH PMH Past Medical History: Yes Past Medical History: Anemia, Arthritis, CHF, Coronary Artery Disease, Depression, Dyslipidemia, GERD, Hypertension, Renal Disease and Sleep Apnea Past Surgical History: Yes Surgical History: OBGYN NURSE Surgery and Ortho Surgery Family History History of Family Medical Conditions: Yes Family Medical History: Diabetes Mellitus, [place] and Hypertension Social History Does patient currently use any type of tobacco product: No Have you used tobacco products in the last 12 months: No Type of Tobacco Use: None Does any household member use tobacco: No Alcohol Use: None Do you use any recreational Drugs:: No Lives With: Family Lives Where: Home Travel Risk Coronavirus risk:travel/contact w/high risk person: No Has patient experienced Coronavirus symptoms: Yes Coronavirus symptoms experienced: Fever Infectious screening In the last 2 months have you had wt loss of >10#?: NO Have you had fever, night sweats or hemotysis?: No Have you traveled outside the country in the last 6 months?: No Isolation: Standard ROS Review of Systems All Other Systems: Reviewed and Negative (See HPI, fever, blood stool otherwise neg) PE Vital Signs Vitals: Vital Signs Temperature 98.3 F Temperature 98.3 F Pulse Rate 77 Pulse Rate 76 Respiratory Rate 16 Respiratory Rate 16 Blood Pressure 105/51 Blood Pressure 105/51 O2 Sat by Pulse Oximetry 98 O2 Sat by Pulse Oximetry 99 General General Appearance: Alert Head Head Exam: Normal Inspection Eyes Eye exam: Normal Appearance Neck Neck Exam: Normal Inspection Chest Chest Inspection: Normal Inspection Cardiovascular Cardiovascular Exam: Regular Rate Abdominal Exam Abdominal Exam: Normal Inspection, Normal Bowel Sounds and Soft; negative Distention, Tenderness, Guarding, Rebound, Rigidity, Dimnished Bowel Sounds, Hyperactive Bowel Sounds, Hypoactive Bowel Sounds, Trauma, Incision, Mass, Bruit or Hernia Extremities Extremities Exam: Normal Inspection Neurologic Neurological Exam: Alert, Oriented X3 and CN II-XII Intact; negative Motor Sensory Deficit MDM Differential Diagnosis Differential Diagnosis: gi bleed, diverticulosis COURSE Reevaluation 1st: Resolved Consultation Called: 13:05 Call Returned: 13:06 Consultation Comments: admit Education/Counseling Education/Counseling: Patient ROR Labs Reviewed Laboratory Results Reviewed?: Yes 10/18/24 10:10 10/18/24 10:10 Laboratory: WBC 6.0 X10^3/uL (3.6-10.0) 10/18/24 10:10 RBC 2.46 X10^6/uL (3.5-5.4) L 10/18/24 10:10 Hgb 7.5 g/dL (12.0-16.0) L 10/18/24 10:10 Hct 22.3 % (36.0-47.0) L 10/18/24 10:10 MCV 90.4 fL (80.0-100.0) 10/18/24 10:10 MCH 30.4 pg (27.0-34.0) 10/18/24 10:10 MCHC 33.6 g/dL (33.0-35.0) 10/18/24 10:10 RDW 16.9 % (11.6-16.5) H 10/18/24 10:10 Plt Count 322 X10^3/uL (150.0-450.0) 10/18/24 10:10 MPV 7.4 fL (7.4-11.0) 10/18/24 10:10 Neut % (Auto) 57.2 % (42.0-75.0) 10/18/24 10:10 Lymph % (Auto) 31.2 % (21.0-51.0) 10/18/24 10:10 [place] % (Auto) 8.2 % (0.0-13.0) 10/18/24 10:10 Eos % (Auto) 2.1 % (0.9-2.9) 10/18/24 10:10 Baso % (Auto) 1.3 % (0.2-1.0) H 10/18/24 10:10 Neut # (Auto) 3.4 x10^3/uL (2.2-4.8) 10/18/24 10:10 Lymph # (Auto) 1.9 X10^3/uL (1.3-2.9) 10/18/24 10:10 [place] # (Auto) 0.5 x10^3/uL (0.3-0.8) 10/18/24 10:10 Eos # (Auto) 0.1 x10^3/uL (0.0-0.2) 10/18/24 10:10 Baso # (Auto) 0.1 X10^3/uL (0.0-0.1) 10/18/24 10:10 Absolute Nucleated RBC 0.0 /100WBC 10/18/24 10:10 APTT 37.7 SECONDS (22.9-36.5) H 10/18/24 10:10 PTT Comment - 10/18/24 10:10 Sodium 144 mmol/L (136-145) 10/18/24 10:10 Corrected Sodium 145 mmol/L (136-145) 10/18/24 10:10 Potassium 3.8 mmol/L (3.5-5.1) 10/18/24 10:10 Chloride 107 mmol/L (98-107) 10/18/24 10:10 Carbon Dioxide 30.3 mmol/L (21-32) 10/18/24 10:10 BUN 28 mg/dL (7-18) H 10/18/24 10:10 Creatinine 0.99 mg/dL (0.55-1.02) 10/18/24 10:10 Est GFR (MDRD) Af Amer > 60 (>60) 10/18/24 10:10 Est GFR (MDRD) Non-Af 57 (>60) L 10/18/24 10:10 Glucose 133 mg/dL (65-99) H 10/18/24 10:10 Calcium 8.2 mg/dL (8.5-10.1) L 10/18/24 10:10 Corrected Calcium 9.7 mg/dL (8.5-10.1) 10/18/24 10:10 Total Bilirubin 0.30 mg/dL (0.2-1.0) 10/18/24 10:10 AST 23 Units/L (15-37) 10/18/24 10:10 ALT 21 Units/L (12-78) 10/18/24 10:10 Alkaline Phosphatase 74 Units/L (46-116) 10/18/24 10:10 Total Protein 5.9 g/dL (6.4-8.2) L 10/18/24 10:10 Albumin 2.1 g/dL (3.4-5.0) L 10/18/24 10:10 Globulin 3.8 g/dL (2.5-4.5) 10/18/24 10:10 Albumin/Globulin Ratio 0.6 Ratio (1.1-2.1) L 10/18/24 10:10 Specimen Type Random urine 10/18/24 11:16 Urine Color Yellow (YELLOW) 10/18/24 11:16 Urine Appearance Slightly hazy (CLEAR) 10/18/24 11:16 Urine pH 7.0 (5.0 - 8.0) 10/18/24 11:16 Ur Specific [place] 1.010 (1.000-1.030) 10/18/24 11:16 Urine Protein 2+ (NEGATIVE) 10/18/24 11:16 Urine Glucose (UA) Negative (NEGATIVE) 10/18/24 11:16 Urine Ketones Negative (NEGATIVE) 10/18/24 11:16 Urine Blood Negative (NEGATIVE) 10/18/24 11:16 Urine Nitrite Negative (NEGATIVE) 10/18/24 11:16 Urine Bilirubin Negative (NEGATIVE) 10/18/24 11:16 Urine Urobilinogen Normal (NORMAL) 10/18/24 11:16 Ur Leukocyte Esterase 2+ (NEGATIVE) 10/18/24 11:16 Stool Occult Blood Positive (NEGATIVE) A 10/18/24 11:04 SARS-CoV-2 (PCR) Negative (NEGATIVE) 10/18/24 09:51 Influenza Type A (PCR) Negative (NEGATIVE) 10/18/24 09:51 Influenza Type B (PCR) Negative (NEGATIVE) 10/18/24 09:51 RSV (PCR) Negative (NEGATIVE) 10/18/24 09:51 XRAY XRAY Interpreted by: Radiologist EKG ST: Nonsp Opioid Opioid Risk Tool Age (Fernandez box if 16-45): No History of Preadolescent Sexual Abuse: No Total: 0 Total Score Risk Category: Low Risk Copyright: Marlo DUONG predicting aberrant behaviors Discharge Plan Diagnosis Discharge Problem: Bright red rectal bleeding, Infection of female pelvis Discharge Plan Patient Disposition: 09 ADMITTED INPATIENT Condition: Stable Prescriptions: No Action rosuvastatin 5 mg tablet 5 mg PO QPM Qty: 90 0RF ropinirole 0.5 mg tablet 0.5 mg PO TID Qty: 270 0RF pantoprazole 40 mg tablet,delayed release (DR/EC) 40 mg PO QDAY Qty: 90 3RF hydrocodone-acetaminophen 7.5-325 mg tablet 1 tab PO Q6H MDD 4 PRN (Reason: Pain) 30 Days Qty: 60 0RF carvedilol [Coreg] 12.5 mg tablet 12.5 mg PO BID 30 Days Qty: 60 0RF Rx Instructions: must administer with a meal/food clopidogrel [Plavix] 75 mg tablet 75 mg PO QDAY dorzolamide-timolol (PF) [Cosopt (PF)] 2-0.5 % dropperette 1 drp ophthalmic (eye) BID Rx Instructions: Instill 1 drop in both eyes two times a day docusate sodium [Colace] 100 mg capsule 100 mg PO BID Qty: 180 3RF isosorbide mononitrate 30 mg tablet extended release 24 hr 30 mg PO QDAY sertraline [Zoloft] 100 mg tablet 200 mg PO QDAY nitroglycerin [Nitrostat] 0.4 mg tablet, sublingual 0.4 mg sublingual PRN PRN (Reason: Chest pain) Rx Instructions: Take 1 tablet sublingually every 5 minutes x 3 times max for chest pain or chest discomfort. Ocuvite Adult 50 Plus 250 mg (90 mg-160 mg) Capsule 1 cap PO QDAY primidone 50 mg Tablet 12.5 mg PO QHS valacyclovir [Valtrex] 1 gram tablet 1,000 mg PO TID PRN (Reason: Shingles) magnesium oxide [MagOx] 400 mg (241.3 mg magnesium) Tablet 400 mg PO BID Qty: 60 0RF furosemide 80 mg tablet 40 mg PO QDAY gabapentin 300 mg capsule 300 mg PO TID ranolazine 500 mg Extend Release Granules,Packet 500 mg PO BID acetaminophen [Tylenol] 325 mg Tablet 650 mg PO DAILY PRN brimonidine 0.2 % drops 1 drp OPHTHALMIC (EYE) DAILY Patient Comments: [NO ORIGINAL SIG] Rx Instructions: Instill 1 drop in both eyes daily sacubitril-valsartan [Entresto] 49-51 mg Tablet 1 tab PO BID Health Concerns: Post Hospitalization: new medications and changes needed to prevent readmission or further decline. Pt educated and given instructions on all concerns. Plan of Treatment: Continue with present treatment and follow up plan. Pt is to keep follow up appointment as instructed and take medications as ordered. Follow ups/Referrals Follow ups/Referrals: Cem Rivera MD [Primary Care Provider] - 3 days
[2024-10-18] MEDS ORDERED: NS 250 ML IV 25 ML IV PRN (10:15)
[2024-10-18 10:20] LABS: BASOPHILS # (AUTO) 0.1 X10^3/uL (0.0-0.1); BASOPHILS % (AUTO) 1.3 % (0.2-1.0); EOSINOPHILS # (AUTO) 0.1 x10^3/uL (0.0-0.2); EOSINOPHILS % (AUTO) 2.1 % (0.9-2.9); HEMATOCRIT 22.3 % (36.0-47.0); HEMOGLOBIN 7.5 g/dL (12.0-16.0); LYMPHOCYTES # (AUTO) 1.9 X10^3/uL (1.3-2.9); LYMPHOCYTES % (AUTO) 31.2 % (21.0-51.0); MEAN CORPUSCULAR HEMOGLOBIN 30.4 pg (27.0-34.0); MEAN CORPUSCULAR HGB CONC 33.6 g/dL (33.0-35.0); MEAN CORPUSCULAR VOLUME 90.4 fL (80.0-100.0); MEAN PLATELET VOLUME 7.4 fL (7.4-11.0); MONOCYTES # (AUTO) 0.5 x10^3/uL (0.3-0.8); MONOCYTES % (AUTO) 8.2 % (0.0-13.0); NEUTROPHILS # (AUTO) 3.4 x10^3/uL (2.2-4.8); NEUTROPHILS % (AUTO) 57.2 % (42.0-75.0); PLATELET COUNT 322 X10^3/uL (150.0-450.0); RED BLOOD COUNT 2.46 X10^6/uL (3.5-5.4); RED CELL DISTRIBUTION WIDTH 16.9 % (11.6-16.5)
--- NOTE | 2024-10-18 10:34 | EKG ---
Test Reason : CHF, hx of [place] Blood Pressure : */* mmHG Vent. Rate : 74 BPM Atrial Rate : 74 BPM P-R Int : 158 ms QRS Dur : 108 ms QT Int : 408 ms P-R-T Axes : 45 -44 26 degrees QTc Int : 452 ms Normal sinus rhythm Left axis deviation Moderate voltage criteria for LVH, may be normal variant ( R in aVL , [place] product ) Anterior infarct (cited on or before 22-AUG-2024) Abnormal ECG When compared with ECG of 13-SEP-2024 18:16, QT has lengthened Confirmed by Zachery Pulido MD ([id number]) on 10/19/2024 7:28:38 AM Referred By: Confirmed By: Zachery Pulido MD
[2024-10-18 10:44] LABS: ALANINE AMINOTRANSFERASE 21 Units/L (12-78); ALBUMIN 2.1 g/dL (3.4-5.0); ALKALINE PHOSPHATASE 74 Units/L (46-116); ASPARTATE AMINO TRANSFERASE 23 Units/L (15-37); BLOOD UREA NITROGEN 28 mg/dL (7-18); CALCIUM 8.2 mg/dL (8.5-10.1); CARBON DIOXIDE 30.3 mmol/L (21-32); CHLORIDE 107 mmol/L (98-107); COR CA(FOR HYPOALB) 9.7 mg/dL (8.5-10.1); COR NA(FOR HYPERGLY) 145 mmol/L (136-145); CREATININE 0.99 mg/dL (0.55-1.02); GLUCOSE 133 mg/dL (65-99); POTASSIUM 3.8 mmol/L (3.5-5.1); SODIUM 144 mmol/L (136-145); TOTAL PROTEIN 5.9 g/dL (6.4-8.2); eGFR NON BLACK RACES 57 (>60)
[2024-10-18] MEDS: ZOSYN VIAL 3.375 GRAMS 3.375 G in NS 100 ML IV 100 ML IV ONE (11:11)
[2024-10-18] MEDS: NS 1,000 ML IV 1,000 ML IV ONE (11:12)
[2024-10-18 11:25] LABS: BILIRUBIN,URINE NEGATIVE (NEGATIVE); BLOOD/HEMOGLOBIN,URINE NEGATIVE (NEGATIVE); GLUCOSE, URINE NEGATIVE (NEGATIVE); KETONES,URINE NEGATIVE (NEGATIVE); LEUKOCYTE ESTERASE ,URINE 2+ (NEGATIVE); NITRITES,URINE NEGATIVE (NEGATIVE); PROTEIN,URINE 2+ (NEGATIVE); UROBILINOGEN,URINE NORMAL (NORMAL)
[2024-10-18 11:29] LABS: APPEARANCE,URINE SLIGHTLY HAZY (CLEAR); COLOR,URINE YELLOW (YELLOW)
--- NOTE | 2024-10-18 11:53 | CT ---
EXAM:CT abdomen pelvis without contrastHISTORY:HematocheziaTECHNIQUE:Ax ial noncontrast images with coronal and sagittal reformats. Dose reduction procedures were used with mA/kv adjusted for body size. This examination is limited due to the lack of intravenous contrast. The examination was performed in this unenhanced manner at the sole direction of the ordering caregiver. Radiology was afforded no input.COMPARISON:09/04/2024FINDINGS:Ther e is a small left pleural effusion present.. There is a trace right pleural effusion present. No basilar lung infiltrates are identified. Heart is enlarged. The visualized liver, spleen, adrenal glands, and pancreas are within normal limits to the limitations of an unenhanced examination. Patient is status post cholecystectomy. Kidneys are unobstructed and without stones. No ureteral calculi are identified. Appendix is not identified with absolute certainty. There are no secondary signs of appendicitis present. Calcific atherosclerotic changes present in an ectatic but nondilated abdominal aorta. No enlarged intraperitoneal or retroperitoneal lymphadenopathy identified. There are no findings suggestive of enteritis. There are no findings suggestive of diverticulitis. There does appear to be some transmural thickening involving the rectum with extensive perirectal inflammation most prominent in the presacral space. Findings could represent a severe acute proctitis with extensive surrounding presacral inflammation or a presacral inflammatory process of uncertain etiology with secondary changes within the rectum. The degree of inflammation present has increased when compared with the prior examination. Additionally there is now a large amount of stool throughout the colon down to the level of the distal sigmoid colon which could be on the basis of constipation or could be secondary to the inflammatory rectal or perirectal process present. Bladder is drained by a [place] catheter. No pelvic masses or pelvic fluid identified. No lytic or blastic skeletal lesions of significance identified. Once again noted is degenerative joint disease with sclerosis of the femoral heads bilaterally. This is not the typical geographic appearance of avascular necrosis however can not be entirely excluded.IMPRESSION:Moderate transmural thickening throughout the rectum with extensive and worsening perirectal and presacral inflammation. Findings could be consistent with severe proctitis with secondary inflammation of the pelvic soft tissues particularly in the presacral space or could be due to a primary inflammatory process in the presacral tissues with secondary involvement of the rectum. If this is primary to the rectum it could represent a bacterial, inflammatory, or ischemic proctitis.Large amount of stool throughout the entire colon proximal to the rectum which could be on the basis of constipation or could be due to partial colonic obstruction due to the inflammatory rectal or perirectal process.THIS IS AN ELECTRONICALLY VERIFIED FINAL REPORT10/18/2024 11:49 AM - Electronically signed by Mauricio Tobin MD
[2024-10-18] MEDS ORDERED: MAXIPIME VIAL 1 GRAM 1 G in NS 50 ML IV 50 ML IV SCH (13:30)
[2024-10-18] MEDS ORDERED: VANCOMYCIN IV *PREMIX 1 G/200 ML BAG 1 G/200 ML PIGGYBACK IV SCH (13:30)
[2024-10-18] MEDS ORDERED: DILAUDID INJ IVP SCH (15:43)
[2024-10-18] MEDS ORDERED: NS 1/2 1,000 ML IV 1,000 ML IV SCH (15:43)
[2024-10-18] MEDS ORDERED: CONSULT PHARMACY - POTASSIUM & MAGNESIUM XX SCH (15:43)
[2024-10-18] MEDS ORDERED: NS 1/2 1,000 ML IV 1,000 ML IV ONE (16:09)
[2024-10-18] MEDS: FLAGYL IV PREMIX 500 MG BAG 500 MG/100 ML BAG IV SCH (16:35)
[2024-10-18] MEDS: NS 1/2 1,000 ML IV 1,000 ML IV SCH (16:35)
[2024-10-18] MEDS: POTASSIUM CHLORIDE LIQ PO SCH (16:35)
[2024-10-18] MEDS: PROTONIX INJ 40 MG VIAL IVP SCH (17:30)
[2024-10-18 18:05] VITALS: BMI 30.4
[2024-10-18] MEDS ORDERED: NS 100 ML IV 0 ML ONE (21:02)
[2024-10-18] MEDS ORDERED: NS 250 ML IV 250 ML IV ONE (21:04)
[2024-10-18] MEDS: NORCO 5/325 MG TAB PO PRN (23:06)
[2024-10-19 06:33] LABS: BASOPHILS # (AUTO) 0.1 X10^3/uL (0.0-0.1); BASOPHILS % (AUTO) 1.2 % (0.2-1.0); EOSINOPHILS # (AUTO) 0.2 x10^3/uL (0.0-0.2); HEMATOCRIT 26.8 % (36.0-47.0); HEMOGLOBIN 9.1 g/dL (12.0-16.0); LYMPHOCYTES # (AUTO) 2.5 X10^3/uL (1.3-2.9); LYMPHOCYTES % (AUTO) 43.9 % (21.0-51.0); MEAN CORPUSCULAR HEMOGLOBIN 30.9 pg (27.0-34.0); MEAN CORPUSCULAR HGB CONC 34.1 g/dL (33.0-35.0); MEAN CORPUSCULAR VOLUME 90.5 fL (80.0-100.0); MEAN PLATELET VOLUME 7.3 fL (7.4-11.0); MONOCYTES # (AUTO) 0.6 x10^3/uL (0.3-0.8); MONOCYTES % (AUTO) 10.5 % (0.0-13.0); NEUTROPHILS # (AUTO) 2.4 x10^3/uL (2.2-4.8); NEUTROPHILS % (AUTO) 41.4 % (42.0-75.0); PLATELET COUNT 310 X10^3/uL (150.0-450.0); RED BLOOD COUNT 2.96 X10^6/uL (3.5-5.4); RED CELL DISTRIBUTION WIDTH 16.4 % (11.6-16.5); WHITE BLOOD COUNT 5.7 X10^3/uL (3.6-10.0)
[2024-10-19] MEDS: LASIX IVP PRN (06:40)
[2024-10-19 06:43] LABS: ALANINE AMINOTRANSFERASE 21 Units/L (12-78); ALBUMIN 2.1 g/dL (3.4-5.0); ALKALINE PHOSPHATASE 65 Units/L (46-116); ASPARTATE AMINO TRANSFERASE 20 Units/L (15-37); BLOOD UREA NITROGEN 24 mg/dL (7-18); CALCIUM 8.5 mg/dL (8.5-10.1); CARBON DIOXIDE 27.9 mmol/L (21-32); CHLORIDE 109 mmol/L (98-107); GLUCOSE 79 mg/dL (65-99); MAGNESIUM 2.2 mg/dL (2.0-2.9); POTASSIUM 4.4 mmol/L (3.5-5.1); SODIUM 144 mmol/L (136-145); TOTAL PROTEIN 5.7 g/dL (6.4-8.2); eGFR NON BLACK RACES > 60 (>60)
--- NOTE | 2024-10-19 07:44 | RAD ---
EXAM:Portable chestHISTORY:PneumoniaCOMPARISON: 024FINDINGS:Patient is rotated to the left. Heart size is accentuated due to hypoinflation. It is likely upper limits normal in size. Angelina are normal. Aorta is calcified. Lung lyon are clear. There is minimal subsegmental atelectasis left lung base. Bony thorax is unremarkable.IMPRESSION:Lungs hypoinflated but free of acute infiltratesMinimal subsegmental atelectasis left lungTHIS IS AN ELECTRONICALLY VERIFIED FINAL REPORT10/19/2024 7:36 AM - Electronically signed by Mauricio Tobin MD
[2024-10-19] MEDS: FLAGYL IV PREMIX 500 MG BAG 500 MG/100 ML BAG IV SCH (07:54)
--- NOTE | 2024-10-19 09:04 | DR.PROGNOT ---
HOSPITAL PROGRESS NOTE Progress Note for Day of: Progress Note Date: 10/19/24 Chief Complaint Chief Complaint: Complaining of mild to moderate abdominal pain with bloating feeling, still having blood in the stool. Stool culture is negative for Campy bacteria. C. difficile is not available yet. BUN is slightly elevated 24 with normal creatinine 0.9, normal liver function tests, WBC 5.7. Abdomen is soft with moderate distention and tympany, bowel sounds hypoactive. Past Medical Family Social History Past Med/Fam/Surg Hx: No changes since H&P Allergies: Allergies fenoprofen [Nalfon] Allergy (Unknown, Verified 09/13/24 15:33) Hives Reason: Drug allergy latex Allergy (Verified 09/13/24 15:33) Vital Signs Vital Signs: Vital Signs Temperature 98.4 F Pulse Rate [Brachial] 72 Respiratory Rate 18 Blood Pressure [Left Arm] 146/64 O2 Sat by Pulse Oximetry 98 Physical Exam Oriented: Normal Eyes: Normal Ear: Normal Nose: Normal Throat: Normal Respiratory: Normal Cardiovascular: Normal GI:Auscultation: Decreased GI:Palpation: Normal GI: Tenderness: Diffuse Speech Pattern: Clear Laboratory and Diagnostics 10/19/24 06:18 10/19/24 06:18 Labs: Laboratory WBC 5.7 X10^3/uL (3.6-10.0) 10/19/24 06:18 RBC 2.96 X10^6/uL (3.5-5.4) L 10/19/24 06:18 Hgb 9.1 g/dL (12.0-16.0) L 10/19/24 06:18 Hct 26.8 % (36.0-47.0) L 10/19/24 06:18 MCV 90.5 fL (80.0-100.0) 10/19/24 06:18 MCH 30.9 pg (27.0-34.0) 10/19/24 06:18 MCHC 34.1 g/dL (33.0-35.0) 10/19/24 06:18 RDW 16.4 % (11.6-16.5) 10/19/24 06:18 Plt Count 310 X10^3/uL (150.0-450.0) 10/19/24 06:18 MPV 7.3 fL (7.4-11.0) L 10/19/24 06:18 Neut % (Auto) 41.4 % (42.0-75.0) L 10/19/24 06:18 Lymph % (Auto) 43.9 % (21.0-51.0) 10/19/24 06:18 [place] % (Auto) 10.5 % (0.0-13.0) 10/19/24 06:18 Eos % (Auto) 3.0 % (0.9-2.9) H 10/19/24 06:18 Baso % (Auto) 1.2 % (0.2-1.0) H 10/19/24 06:18 Neut # (Auto) 2.4 x10^3/uL (2.2-4.8) 10/19/24 06:18 Lymph # (Auto) 2.5 X10^3/uL (1.3-2.9) 10/19/24 06:18 [place] # (Auto) 0.6 x10^3/uL (0.3-0.8) 10/19/24 06:18 Eos # (Auto) 0.2 x10^3/uL (0.0-0.2) 10/19/24 06:18 Baso # (Auto) 0.1 X10^3/uL (0.0-0.1) 10/19/24 06:18 Absolute Nucleated RBC 0.1 /100WBC 10/19/24 06:18 PT 14.9 SECONDS (11.8-14.3) 10/19/24 06:18 INR Target Range - 10/19/24 06:18 INR 1.20 (0.8-1.3) 10/19/24 06:18 APTT 37.7 SECONDS (22.9-36.5) H 10/18/24 10:10 PTT Comment - 10/18/24 10:10 Sodium 144 mmol/L (136-145) 10/19/24 06:18 Corrected Sodium TNP 10/19/24 06:18 Potassium 4.4 mmol/L (3.5-5.1) 10/19/24 06:18 Chloride 109 mmol/L (98-107) H 10/19/24 06:18 Carbon Dioxide 27.9 mmol/L (21-32) 10/19/24 06:18 BUN 24 mg/dL (7-18) H 10/19/24 06:18 Creatinine 0.90 mg/dL (0.55-1.02) 10/19/24 06:18 Est GFR (MDRD) Af Amer > 60 (>60) 10/19/24 06:18 Est GFR (MDRD) Non-Af > 60 (>60) 10/19/24 06:18 Glucose 79 mg/dL (65-99) 10/19/24 06:18 Calcium 8.5 mg/dL (8.5-10.1) 10/19/24 06:18 Corrected Calcium 10.0 mg/dL (8.5-10.1) 10/19/24 06:18 Magnesium 2.2 mg/dL (2.0-2.9) 10/19/24 06:18 Total Bilirubin 0.70 mg/dL (0.2-1.0) 10/19/24 06:18 AST 20 Units/L (15-37) 10/19/24 06:18 ALT 21 Units/L (12-78) 10/19/24 06:18 Alkaline Phosphatase 65 Units/L (46-116) 10/19/24 06:18 Total Protein 5.7 g/dL (6.4-8.2) L 10/19/24 06:18 Albumin 2.1 g/dL (3.4-5.0) L 10/19/24 06:18 Globulin 3.6 g/dL (2.5-4.5) 10/19/24 06:18 Albumin/Globulin Ratio 0.6 Ratio (1.1-2.1) L 10/19/24 06:18 Specimen Type Random urine 10/18/24 11:16 Urine Color Yellow (YELLOW) 10/18/24 11:16 Urine Appearance Slightly hazy (CLEAR) 10/18/24 11:16 Urine pH 7.0 (5.0 - 8.0) 10/18/24 11:16 Ur Specific [place] 1.010 (1.000-1.030) 10/18/24 11:16 Urine Protein 2+ (NEGATIVE) 10/18/24 11:16 Urine Glucose (UA) Negative (NEGATIVE) 10/18/24 11:16 Urine Ketones Negative (NEGATIVE) 10/18/24 11:16 Urine Blood Negative (NEGATIVE) 10/18/24 11:16 Urine Nitrite Negative (NEGATIVE) 10/18/24 11:16 Urine Bilirubin Negative (NEGATIVE) 10/18/24 11:16 Urine Urobilinogen Normal (NORMAL) 10/18/24 11:16 Ur Leukocyte Esterase 2+ (NEGATIVE) 10/18/24 11:16 Stool Occult Blood Positive (NEGATIVE) A 10/18/24 11:04 SARS-CoV-2 (PCR) Negative (NEGATIVE) 10/18/24 09:51 Influenza Type A (PCR) Negative (NEGATIVE) 10/18/24 09:51 Influenza Type B (PCR) Negative (NEGATIVE) 10/18/24 09:51 RSV (PCR) Negative (NEGATIVE) 10/18/24 09:51 Blood Type B POSITIVE 10/18/24 17:18 Antibody Screen Negative 10/18/24 17:18 Crossmatch See Detail 10/18/24 17:18 Assessment and Plan 1: Rectal bleeding, possible colitis and proctitis. On IV Flagyl and liquid diet 2: Recent history of C. difficile colitis possible recurrence .. 3: Mild anemia, patient is on anticoagulant which was held. Problem Patient Problems: Patient Problems Bright red rectal bleeding (Acute) K62.5 Infection of female pelvis (Acute) N73.9
[2024-10-19] MEDS ORDERED: NS 1/2 1,000 ML IV 1,000 ML IV ONE (09:54)
[2024-10-19 11:51] LABS: HEMATOCRIT 27.8 % (36.0-47.0); HEMOGLOBIN 9.5 g/dL (12.0-16.0)
[2024-10-19] MEDS: ENTRESTO 49/51 MG TABLET PO SCH (20:54)
[2024-10-19] MEDS: COREG TAB 12.5 MG PO SCH (20:54)
[2024-10-19] MEDS: MYSOLINE PO SCH (20:58)
[2024-10-19 21:14] LABS: HEMOGLOBIN 9.8 g/dL (12.0-16.0)
[2024-10-19] MEDS: MORPHINE SULFATE INJ 2 MG INJ IVP PRN (23:45)
[2024-10-20 05:59] LABS: BASOPHILS % (AUTO) 0.8 % (0.2-1.0); EOSINOPHILS # (AUTO) 0.2 x10^3/uL (0.0-0.2); EOSINOPHILS % (AUTO) 2.8 % (0.9-2.9); HEMATOCRIT 26.8 % (36.0-47.0); HEMOGLOBIN 9.3 g/dL (12.0-16.0); LYMPHOCYTES # (AUTO) 2.4 X10^3/uL (1.3-2.9); LYMPHOCYTES % (AUTO) 41.9 % (21.0-51.0); MEAN CORPUSCULAR HGB CONC 34.5 g/dL (33.0-35.0); MEAN CORPUSCULAR VOLUME 89.7 fL (80.0-100.0); MEAN PLATELET VOLUME 7.7 fL (7.4-11.0); MONOCYTES # (AUTO) 0.6 x10^3/uL (0.3-0.8); MONOCYTES % (AUTO) 10.9 % (0.0-13.0); NEUTROPHILS # (AUTO) 2.5 x10^3/uL (2.2-4.8); NEUTROPHILS % (AUTO) 43.6 % (42.0-75.0); PLATELET COUNT 303 X10^3/uL (150.0-450.0); RED BLOOD COUNT 2.99 X10^6/uL (3.5-5.4); RED CELL DISTRIBUTION WIDTH 16.3 % (11.6-16.5); WHITE BLOOD COUNT 5.7 X10^3/uL (3.6-10.0)
[2024-10-20 06:11] LABS: ALANINE AMINOTRANSFERASE 19 Units/L (12-78); ALBUMIN 2.1 g/dL (3.4-5.0); ALKALINE PHOSPHATASE 64 Units/L (46-116); ASPARTATE AMINO TRANSFERASE 17 Units/L (15-37); BLOOD UREA NITROGEN 23 mg/dL (7-18); CALCIUM 8.6 mg/dL (8.5-10.1); CARBON DIOXIDE 30.6 mmol/L (21-32); CHLORIDE 106 mmol/L (98-107); COR CA(FOR HYPOALB) 10.1 mg/dL (8.5-10.1); GLUCOSE 91 mg/dL (65-99); POTASSIUM 4.3 mmol/L (3.5-5.1); SODIUM 144 mmol/L (136-145); TOTAL PROTEIN 5.7 g/dL (6.4-8.2); eGFR NON BLACK RACES > 60 (>60)
[2024-10-20] MEDS: VSL#3 PROBIOTIC CAP 112.5 B PO SCH (10:44)
[2024-10-20] MEDS ORDERED: NS 1/2 1,000 ML IV 1,000 ML IV ONE (11:21)
--- NOTE | 2024-10-20 11:55 | DR.PROGNOT ---
HOSPITAL PROGRESS NOTE Progress Note for Day of: Progress Note Date: 10/20/24 Chief Complaint Chief Complaint: Less abdominal pain today. Still having bloating feeling, no further rectal bleeding with loose bowels. Stool culture is negative for Campy bacteria. C. difficile is negative. BUN is slightly elevated 23 with normal creatinine 0.9, normal liver function tests, albumin 2.1, platelet count 303, normal liver function tests. Abdomen is soft with moderate distention and tympany, bowel sounds hypoactive. Past Medical Family Social History Past Med/Fam/Surg Hx: No changes since H&P Allergies: Allergies fenoprofen [Nalfon] Allergy (Unknown, Verified 09/13/24 15:33) Hives Reason: Drug allergy latex Allergy (Verified 09/13/24 15:33) Vital Signs Vital Signs: Vital Signs Temperature 98.1 F Temperature 98.0 F Pulse Rate [Brachial] 78 Pulse Rate [Brachial] 75 Respiratory Rate 18 Respiratory Rate 16 Blood Pressure [Left Arm] 156/70 Blood Pressure [Left Arm] 137/63 O2 Sat by Pulse Oximetry 98 O2 Sat by Pulse Oximetry 99 Physical Exam Oriented: Normal Eyes: Normal Ear: Normal Nose: Normal Throat: Normal Respiratory: Normal Cardiovascular: Normal GI:Auscultation: Decreased GI:Palpation: Normal GI: Tenderness: Diffuse (Soft with moderate distention with epigastric and mid abdominal tenderness. No rebound or rigidity, bowel sounds hypoactive.) Speech Pattern: Clear Laboratory and Diagnostics 10/20/24 05:21 10/20/24 05:21 Labs: 10/18/24 10:53 Blood Blood Culture - Preliminary 10/18/24 10:47 Blood Blood Culture - Preliminary Laboratory WBC 5.7 X10^3/uL (3.6-10.0) 10/20/24 05:21 RBC 2.99 X10^6/uL (3.5-5.4) L 10/20/24 05:21 Hgb 9.3 g/dL (12.0-16.0) L 10/20/24 05:21 Hct 26.8 % (36.0-47.0) L 10/20/24 05:21 MCV 89.7 fL (80.0-100.0) 10/20/24 05:21 MCH 31.0 pg (27.0-34.0) 10/20/24 05:21 MCHC 34.5 g/dL (33.0-35.0) 10/20/24 05:21 RDW 16.3 % (11.6-16.5) 10/20/24 05:21 Plt Count 303 X10^3/uL (150.0-450.0) 10/20/24 05:21 MPV 7.7 fL (7.4-11.0) 10/20/24 05:21 Neut % (Auto) 43.6 % (42.0-75.0) 10/20/24 05:21 Lymph % (Auto) 41.9 % (21.0-51.0) 10/20/24 05:21 [place] % (Auto) 10.9 % (0.0-13.0) 10/20/24 05:21 Eos % (Auto) 2.8 % (0.9-2.9) 10/20/24 05:21 Baso % (Auto) 0.8 % (0.2-1.0) 10/20/24 05:21 Neut # (Auto) 2.5 x10^3/uL (2.2-4.8) 10/20/24 05:21 Lymph # (Auto) 2.4 X10^3/uL (1.3-2.9) 10/20/24 05:21 [place] # (Auto) 0.6 x10^3/uL (0.3-0.8) 10/20/24 05:21 Eos # (Auto) 0.2 x10^3/uL (0.0-0.2) 10/20/24 05:21 Baso # (Auto) 0.0 X10^3/uL (0.0-0.1) 10/20/24 05:21 Absolute Nucleated RBC 0.0 /100WBC 10/20/24 05:21 PT 14.9 SECONDS (11.8-14.3) 10/19/24 06:18 INR Target Range - 10/19/24 06:18 INR 1.20 (0.8-1.3) 10/19/24 06:18 APTT 37.7 SECONDS (22.9-36.5) H 10/18/24 10:10 PTT Comment - 10/18/24 10:10 Sodium 144 mmol/L (136-145) 10/20/24 05:21 Corrected Sodium TNP 10/20/24 05:21 Potassium 4.3 mmol/L (3.5-5.1) 10/20/24 05:21 Chloride 106 mmol/L (98-107) 10/20/24 05:21 Carbon Dioxide 30.6 mmol/L (21-32) 10/20/24 05:21 BUN 23 mg/dL (7-18) H 10/20/24 05:21 Creatinine 0.90 mg/dL (0.55-1.02) 10/20/24 05:21 Est GFR (MDRD) Af Amer > 60 (>60) 10/20/24 05:21 Est GFR (MDRD) Non-Af > 60 (>60) 10/20/24 05:21 Glucose 91 mg/dL (65-99) 10/20/24 05:21 Calcium 8.6 mg/dL (8.5-10.1) 10/20/24 05:21 Corrected Calcium 10.1 mg/dL (8.5-10.1) 10/20/24 05:21 Magnesium 2.2 mg/dL (2.0-2.9) 10/19/24 06:18 Total Bilirubin 0.40 mg/dL (0.2-1.0) 10/20/24 05:21 AST 17 Units/L (15-37) 10/20/24 05:21 ALT 19 Units/L (12-78) 10/20/24 05:21 Alkaline Phosphatase 64 Units/L (46-116) 10/20/24 05:21 Total Protein 5.7 g/dL (6.4-8.2) L 10/20/24 05:21 Albumin 2.1 g/dL (3.4-5.0) L 10/20/24 05:21 Globulin 3.6 g/dL (2.5-4.5) 10/20/24 05:21 Albumin/Globulin Ratio 0.6 Ratio (1.1-2.1) L 10/20/24 05:21 Specimen Type Random urine 10/18/24 11:16 Urine Color Yellow (YELLOW) 10/18/24 11:16 Urine Appearance Slightly hazy (CLEAR) 10/18/24 11:16 Urine pH 7.0 (5.0 - 8.0) 10/18/24 11:16 Ur Specific [place] 1.010 (1.000-1.030) 10/18/24 11:16 Urine Protein 2+ (NEGATIVE) 10/18/24 11:16 Urine Glucose (UA) Negative (NEGATIVE) 10/18/24 11:16 Urine Ketones Negative (NEGATIVE) 10/18/24 11:16 Urine Blood Negative (NEGATIVE) 10/18/24 11:16 Urine Nitrite Negative (NEGATIVE) 10/18/24 11:16 Urine Bilirubin Negative (NEGATIVE) 10/18/24 11:16 Urine Urobilinogen Normal (NORMAL) 10/18/24 11:16 Ur Leukocyte Esterase 2+ (NEGATIVE) 10/18/24 11:16 Stool Occult Blood Positive (NEGATIVE) A 10/18/24 11:04 Stl C. diff Tox B Gene Negative (NEGATIVE) 10/19/24 22:27 Stl C. diff [id number] Presumptive negative (NEGATIVE) 10/19/24 22:27 SARS-CoV-2 (PCR) Negative (NEGATIVE) 10/18/24 09:51 Influenza Type A (PCR) Negative (NEGATIVE) 10/18/24 09:51 Influenza Type B (PCR) Negative (NEGATIVE) 10/18/24 09:51 RSV (PCR) Negative (NEGATIVE) 10/18/24 09:51 Blood Type B POSITIVE 10/18/24 17:18 Antibody Screen Negative 10/18/24 17:18 Crossmatch See Detail 10/18/24 17:18 Assessment and Plan 1: Rectal bleeding, possible colitis and proctitis. On IV Flagyl and liquid diet 2: Recent history of C. difficile colitis possible recurrence .. 3: Mild anemia, patient is on anticoagulant which was held. Problem Patient Problems: Patient Problems Bright red rectal bleeding (Acute) K62.5 Infection of female pelvis (Acute) N73.9
--- NOTE | 2024-10-20 13:17 | RAD ---
EXAMINATION: KUB HISTORY: GI BLEED, ABDOMINAL DISTENTION ; . COMPARISON STUDY: None. TECHNIQUE: 2 supine AP views of the abdomen and pelvis FINDINGS: Moderate amount of feces throughout the colon. Surgical clips right upper abdomen. Moderate rotator y dextroscoliosis lumbar spine with spondylosis. Lower pelvis was not imaged. Visualized soft tissu e outlines appear intact. Probable infiltrate left pulmonary base. IMPRESSION: Moderate amount of feces. THIS IS AN ELECTRONICALLY VERIFIED FINAL REPORT 10/20/2024 1:13 PM - Electronically signed by Angella Rouse MD
[2024-10-20] MEDS ORDERED: BUTT CREAM (COMPOUND) ONE (15:55)
[2024-10-21 04:35] VITALS: RESP 19
[2024-10-21 06:33] LABS: BASOPHILS % (AUTO) 0.7 % (0.2-1.0); EOSINOPHILS # (AUTO) 0.1 x10^3/uL (0.0-0.2); EOSINOPHILS % (AUTO) 2.3 % (0.9-2.9); HEMATOCRIT 28.4 % (36.0-47.0); HEMOGLOBIN 9.7 g/dL (12.0-16.0); LYMPHOCYTES # (AUTO) 2.2 X10^3/uL (1.3-2.9); LYMPHOCYTES % (AUTO) 38.2 % (21.0-51.0); MEAN CORPUSCULAR HEMOGLOBIN 30.8 pg (27.0-34.0); MEAN CORPUSCULAR HGB CONC 34.2 g/dL (33.0-35.0); MEAN PLATELET VOLUME 7.7 fL (7.4-11.0); MONOCYTES # (AUTO) 0.6 x10^3/uL (0.3-0.8); MONOCYTES % (AUTO) 10.8 % (0.0-13.0); NEUTROPHILS # (AUTO) 2.8 x10^3/uL (2.2-4.8); PLATELET COUNT 316 X10^3/uL (150.0-450.0); RED BLOOD COUNT 3.16 X10^6/uL (3.5-5.4); RED CELL DISTRIBUTION WIDTH 16.5 % (11.6-16.5); WHITE BLOOD COUNT 5.7 X10^3/uL (3.6-10.0)
[2024-10-21 06:39] LABS: ALANINE AMINOTRANSFERASE 20 Units/L (12-78); ALBUMIN 2.1 g/dL (3.4-5.0); ALKALINE PHOSPHATASE 64 Units/L (46-116); ASPARTATE AMINO TRANSFERASE 16 Units/L (15-37); BLOOD UREA NITROGEN 19 mg/dL (7-18); CALCIUM 8.6 mg/dL (8.5-10.1); CARBON DIOXIDE 27.9 mmol/L (21-32); CHLORIDE 110 mmol/L (98-107); COR CA(FOR HYPOALB) 10.1 mg/dL (8.5-10.1); CREATININE 0.73 mg/dL (0.55-1.02); GLUCOSE 97 mg/dL (65-99); POTASSIUM 3.7 mmol/L (3.5-5.1); SODIUM 145 mmol/L (136-145); TOTAL PROTEIN 5.8 g/dL (6.4-8.2); eGFR NON BLACK RACES > 60 (>60)
--- NOTE | 2024-10-21 08:45 | DR.PROGNOT ---
HOSPITAL PROGRESS NOTE Progress Note for Day of: Progress Note Date: 10/21/24 Chief Complaint Chief Complaint: Moderate abdominal pain today. Still having bloating feeling, no further rectal bleeding with loose bowels. Stool culture is negative for Campy bacteria. C. difficile toxin B+. BUN is slightly elevated 19 . with normal creatinine 0.9, normal liver function tests, albumin 2.1, platelet count 303, normal liver function tests. Last KUB showed moderate amount of stool in the colon, no free air. Patient is afebrile and stable vital signs. Abdomen is soft with moderate distention and tympany, bowel sounds hypoactive. Past Medical Family Social History Past Med/Fam/Surg Hx: No changes since H&P Allergies: Allergies fenoprofen [Nalfon] Allergy (Unknown, Verified 09/13/24 15:33) Hives Reason: Drug allergy latex Allergy (Verified 09/13/24 15:33) Vital Signs Vital Signs: Vital Signs Temperature 98.7 F Pulse Rate [Brachial] 78 Respiratory Rate 19 Blood Pressure [Left Arm] 180/73 O2 Sat by Pulse Oximetry 99 Physical Exam Oriented: Normal Eyes: Normal Ear: Normal Nose: Normal Throat: Normal Respiratory: Normal Cardiovascular: Normal GI:Auscultation: Decreased GI:Palpation: Normal GI: Tenderness: Diffuse (Soft with moderate distention with epigastric and mid abdominal tenderness. No rebound or rigidity, bowel sounds hypoactive.) Speech Pattern: Clear Laboratory and Diagnostics 10/21/24 05:32 10/21/24 05:32 Labs: 10/18/24 10:53 Blood Blood Culture - Preliminary 10/18/24 10:47 Blood Blood Culture - Preliminary Laboratory WBC 5.7 X10^3/uL (3.6-10.0) 10/21/24 05:32 RBC 3.16 X10^6/uL (3.5-5.4) L 10/21/24 05:32 Hgb 9.7 g/dL (12.0-16.0) L 10/21/24 05:32 Hct 28.4 % (36.0-47.0) L 10/21/24 05:32 MCV 90.0 fL (80.0-100.0) 10/21/24 05:32 MCH 30.8 pg (27.0-34.0) 10/21/24 05:32 MCHC 34.2 g/dL (33.0-35.0) 10/21/24 05:32 RDW 16.5 % (11.6-16.5) 10/21/24 05:32 Plt Count 316 X10^3/uL (150.0-450.0) 10/21/24 05:32 MPV 7.7 fL (7.4-11.0) 10/21/24 05:32 Neut % (Auto) 48.0 % (42.0-75.0) 10/21/24 05:32 Lymph % (Auto) 38.2 % (21.0-51.0) 10/21/24 05:32 [place] % (Auto) 10.8 % (0.0-13.0) 10/21/24 05:32 Eos % (Auto) 2.3 % (0.9-2.9) 10/21/24 05:32 Baso % (Auto) 0.7 % (0.2-1.0) 10/21/24 05:32 Neut # (Auto) 2.8 x10^3/uL (2.2-4.8) 10/21/24 05:32 Lymph # (Auto) 2.2 X10^3/uL (1.3-2.9) 10/21/24 05:32 [place] # (Auto) 0.6 x10^3/uL (0.3-0.8) 10/21/24 05:32 Eos # (Auto) 0.1 x10^3/uL (0.0-0.2) 10/21/24 05:32 Baso # (Auto) 0.0 X10^3/uL (0.0-0.1) 10/21/24 05:32 Absolute Nucleated RBC 0.1 /100WBC 10/21/24 05:32 PT 14.9 SECONDS (11.8-14.3) 10/19/24 06:18 INR Target Range - 10/19/24 06:18 INR 1.20 (0.8-1.3) 10/19/24 06:18 APTT 37.7 SECONDS (22.9-36.5) H 10/18/24 10:10 PTT Comment - 10/18/24 10:10 Sodium 145 mmol/L (136-145) 10/21/24 05:32 Corrected Sodium TNP 10/21/24 05:32 Potassium 3.7 mmol/L (3.5-5.1) 10/21/24 05:32 Chloride 110 mmol/L (98-107) H 10/21/24 05:32 Carbon Dioxide 27.9 mmol/L (21-32) 10/21/24 05:32 BUN 19 mg/dL (7-18) H 10/21/24 05:32 Creatinine 0.73 mg/dL (0.55-1.02) 10/21/24 05:32 Est GFR (MDRD) Af Amer > 60 (>60) 10/21/24 05:32 Est GFR (MDRD) Non-Af > 60 (>60) 10/21/24 05:32 Glucose 97 mg/dL (65-99) 10/21/24 05:32 Calcium 8.6 mg/dL (8.5-10.1) 10/21/24 05:32 Corrected Calcium 10.1 mg/dL (8.5-10.1) 10/21/24 05:32 Magnesium 2.1 mg/dL (2.0-2.9) 10/21/24 05:32 Total Bilirubin 0.40 mg/dL (0.2-1.0) 10/21/24 05:32 AST 16 Units/L (15-37) 10/21/24 05:32 ALT 20 Units/L (12-78) 10/21/24 05:32 Alkaline Phosphatase 64 Units/L (46-116) 10/21/24 05:32 Total Protein 5.8 g/dL (6.4-8.2) L 10/21/24 05:32 Albumin 2.1 g/dL (3.4-5.0) L 10/21/24 05:32 Globulin 3.7 g/dL (2.5-4.5) 10/21/24 05:32 Albumin/Globulin Ratio 0.6 Ratio (1.1-2.1) L 10/21/24 05:32 Specimen Type Random urine 10/18/24 11:16 Urine Color Yellow (YELLOW) 10/18/24 11:16 Urine Appearance Slightly hazy (CLEAR) 10/18/24 11:16 Urine pH 7.0 (5.0 - 8.0) 10/18/24 11:16 Ur Specific [place] 1.010 (1.000-1.030) 10/18/24 11:16 Urine Protein 2+ (NEGATIVE) 10/18/24 11:16 Urine Glucose (UA) Negative (NEGATIVE) 10/18/24 11:16 Urine Ketones Negative (NEGATIVE) 10/18/24 11:16 Urine Blood Negative (NEGATIVE) 10/18/24 11:16 Urine Nitrite Negative (NEGATIVE) 10/18/24 11:16 Urine Bilirubin Negative (NEGATIVE) 10/18/24 11:16 Urine Urobilinogen Normal (NORMAL) 10/18/24 11:16 Ur Leukocyte Esterase 2+ (NEGATIVE) 10/18/24 11:16 Stool Occult Blood Positive (NEGATIVE) A 10/18/24 11:04 Stl C. diff Tox B Gene Positive (NEGATIVE) A 10/20/24 16:03 Stl C. diff [id number] Presumptive negative (NEGATIVE) 10/20/24 16:03 C. 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 On IV Flagyl and IV fluid. To review the last KUB, same soft diet, possible discharge in the morning. Will keep the patient on oral Flagyl for 10 days. 2: Chronic abdominal pain. 3: Mild anemia, patient is on anticoagulant which was held. Problem Patient Problems: Patient Problems Bright red rectal bleeding (Acute) K62.5 Infection of female pelvis (Acute) N73.9
--- NOTE | 2024-10-21 08:47 | RAD ---
EXAM:KUBHISTORY:GI bleeding, abdominal painCOMPARISON:CT abdomen pelvis 10/18/2024FINDINGS:Abdominal gas pattern is nonspecific and nonobstructive. There is significant decrease in the stool burden when compared with recent CT abdomen pelvis. No abnormal masses or abnormal calcifications are identified. Regional skeleton is intact.IMPRESSION:No acute findingsDecreased stool burden when compared with the prior CT examinationTHIS IS AN ELECTRONICALLY VERIFIED FINAL REPORT10/21/2024 8:27 AM - Electronically signed by Mauricio Tobin MD
[2024-10-21] MEDS ORDERED: CONSULT PHARMACY - POTASSIUM & MAGNESIUM XX SCH (09:00)
[2024-10-21] MEDS: K-DUR TAB 20 MEQ PO SCH (09:49)
[2024-10-21 10:58] VITALS: BP 179/77; PULSE 75; TEMP 97.6; O2SAT 100
== END 2024-10-21 13:50 ==
LOC: ER 09:47 → MED/SURG 09:47
PROVIDERS: ADMIT Surgery; ATTEND Surgery
DX: R79.1 Abnormal coagulation profile; F32.89 Other specified depressive episodes; R10.84 Generalized abdominal pain; N73.8 Other specified female pelvic inflammatory diseases; I25.2 Old myocardial infarction; E86.0 Dehydration; R94.31 Abnormal electrocardiogram [ECG] [EKG]; K59.09 Other constipation; K21.9 Gastro-esophageal reflux disease without esophagitis; I25.10 Atherosclerotic heart disease of native coronary artery without angina pectoris; K62.5 Hemorrhage of anus and rectum; K62.89 Other specified diseases of anus and rectum; Z03.818 Encounter for observation for suspected exposure to other biological agents ruled out; R26.89 Other abnormalities of gait and mobility; I50.9 Heart failure, unspecified; D64.89 Other specified anemias; I11.0 Hypertensive heart disease with heart failure; A04.71 Enterocolitis due to Clostridium difficile, recurrent; Z79.01 Long term (current) use of anticoagulants; E78.5 Hyperlipidemia, unspecified